=== PATIENT | male | born 1960 | race Two or more races ===

== ENCOUNTER 2017-01-15 05:36 | Observation (INO) | payer MEDICARE, OTHER ==
[2017-01-15 06:26] VITALS: BMI 30.1
[2017-01-15] MEDS ORDERED: VALSARTAN 40 MG TABLET (FP) PO ONE (06:44)
--- NOTE | 2017-01-15 06:44 | PDOC ---
History of Present Illness - General Chief Complaint: Chest Pain Stated Complaint: DIFFICULTY BREATHING Time Seen by Provider: 01/15/17 06:02 History Source: Patient Exam Limitations: No Limitations - History of Present Illness Timing/Duration: 4-6 hours Severity: moderate Associated Symptoms: reports: chest pain, shortness of breath Aspirin Received prior to arrival: Yes: no aspirin today Beta Loretta Contraindications(Core Measure): Yes: Not Prescribed Past History - Travel Traveled outside of the country in the last 30 days: No Close contact w/someone who was outside of country & ill: No - Past Medical History Allergies/Adverse Reactions: Allergies Allergy/AdvReac Type Severity Reaction Status Date / Time morphine Allergy Verified 05/28/15 10:55 Home Medications: Ambulatory Orders Amlodipine Besylate [Norvasc -] 10 mg PO DAILY #30 tablet 05/28/15 Metformin HCl 0 mg PO ASDIR 05/28/15 Tamsulosin HCl [Flomax] 0.4 mg PO DAILY #7 cap.er.24h 05/28/15 Tramadol HCl 50 mg PO TID #14 tablet 05/28/15 Diabetes: Yes HTN: Yes Kidney Stones: Yes - Surgical History Appendectomy: Yes - Suicide/Smoking/Psychosocial Hx Smoking History: Never smoked Hx Alcohol Use: No Drug/Substance Use Hx: No Substance Use Type: None Review of Systems - Review of Systems Able to Perform ROS?: Yes Constitutional: Yes: Malaise. No: Chills, Diaphoresis, Fever, Loss of Appetite HEENTM: No: Eye Pain, Blurred Vision, Recent change in vision, Double Vision Respiratory: Yes: Shortness of Breath. No: Cough, Orthopnea Cardiac (ROS): Yes: Chest Pain, Palpitations ABD/GI: Yes: Nausea. No: Constipated, Diarrhea, Difficulty Swallowing, Poor Appetite, Poor Fluid Intake, Vomiting : No: See HPI, Burning, Dysuria Musculoskeletal: No: Back Pain Integumentary: No: Bruising Neurological: No: See HPI, Headache, Numbness *Physical Exam - Vital Signs Last Vital Signs Temp Pulse Resp BP Pulse Ox 98.1 F 91 H 18 186/100 99 01/15/17 05:57 01/15/17 05:57 01/15/17 05:57 01/15/17 05:57 01/15/17 05:57 - Physical Exam General Appearance: Yes: Nourished, Appropriately Dressed. No: Apparent Distress HEENT: positive: EOMI, OLEG, Normal ENT Inspection, Normal Voice, Symmetrical, Pharynx Normal Neck: positive: Trachea midline Respiratory/Chest: positive: Lungs Clear, Normal Breath Sounds. 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 Pt states that he has "not really" any history of HTN; however, he has HTN in the ER Pt presents with palpitaions and SOB; EKG in the ER is NSR and his HR is 92 bpm. Pt is afebrile. He states that he has had nausea since last night 2am, and that although he did not vomit, he has chest pain and SOB. Pt has no other complaints. He appears comfortable. He has no ill contacts and has no hx of food poisoning. Pt will have basic labs and cardiac enzymes. Pt will get CXR and meds to treaat his HTN; CXR pending. Pt will be signed out to the day ER doc, who will continue management. *DC/Admit/Observation/Transfer Diagnosis at time of Disposition: Palpitations, Diabetes, Shortness of breath - Discharge Dispostion Condition at time of disposition: Guarded
[2017-01-15] MEDS ORDERED: METOPROLOL TARTRATE 50 MG TABLET (FP) PO ONE (06:45)
[2017-01-15] MEDS ORDERED: SODIUM CHLORIDE 0.9% 1000 ML INFUS.BAG IV ONE (06:45)
[2017-01-15] MEDS ORDERED: METOPROLOL TARTRATE 50 MG TABLET (FP) ONE (07:16)
[2017-01-15] MEDS ORDERED: VALSARTAN 80 MG TABLET (UD) ONE (07:17)
[2017-01-15 07:21] LABS: BASOPHIL 0.8 % (0-2.0); EOSINOPHIL 1.6 % (0-4.5); MCHC 34.2 g/dl (32.0-35.9); MEAN CELL VOLUME 84.7 fl (80-96); MEAN PLT VOLUME 8.9 fl (7.5-11.1); NEUTROPHILS 72.3 % (42.8-82.8); PLATELET COUNT 287 K/MM3 (134-434); RDW 13.8 % (11.9-15.9); WHITE BLOOD COUNT 9.9 K/mm3 (4.0-10.0)
[2017-01-15 07:56] LABS: INR 1.01 (0.82-1.09); PROTHROMBIN TIME (PATIENT) 11.4 SEC (9.98-11.88)
[2017-01-15 08:03] LABS: ALBUMIN 3.4 g/dl (3.4-5.0); ANION GAP 6 (8-16); BILIRUBIN,TOTAL 0.4 mg/dL (0.2-1.0); CALCIUM 8.3 mg/dL (8.5-10.1); CO2 25 mmol/L (21-32); CPK 79 IU/L (39-308); GLUCOSE,RANDOM 287 mg/dL (74-106); SGOT/AST 7 U/L (15-37); SGPT/ALT 17 U/L (12-78); TOT PROT 6.5 g/dl (6.4-8.2)
[2017-01-15 08:05] LABS: ALK PHOS 76 U/L (45-117); TROPONIN I < 0.02 ng/ml (0.00-0.05)
[2017-01-15] MEDS ORDERED: NITROGLYCERIN 2% OINTMENT - 1GM PACKET TD ONE ×2 (08:45→09:26)
[2017-01-15] MEDS ORDERED: TAMSULOSIN HCL 0.4 MG CAP.ER.24H (FP) PO SCH (10:45)
--- NOTE | 2017-01-15 10:59 | PDOC ---
*Physical Exam - Vital Signs Last Vital Signs Temp Pulse Resp BP Pulse Ox 98.4 F 75 98 H 153/84 98 01/15/17 09:30 01/15/17 10:45 01/15/17 10:45 01/15/17 10:45 01/15/17 10:45 - Physical Exam Comments: 01/15/17 10:55 56-year-old male with history of diabetes, hypertension endorsed to me by Dr. Crowe. Patient presented to the ER with anterior squeezing chest discomfort and difficulty breathing that lasted approximately 2 hours prior to arrival. In the ER, patient is awake and alert, mildly hypertensive, symptom-free at this time. First set of cardiac enzymes within normal limit. EKG shows no evidence of acute ischemia, chest x-ray reveals no evidence of cardiomegaly/infiltrate or effusion. Patient's heart score is noted to be 3. Will place and telemetry observation for serial cardiac enzymes and cardiology evaluation. ED Treatment Course - LABORATORY CBC & Chemistry Diagram: 01/15/17 07:04 01/15/17 07:04 - ADDITIONAL ORDERS Additional order review: Laboratory Results 01/15/17 01/15/17 01/15/17 07:04 07:04 07:04 PT with INR 11.40 INR 1.01 PTT (Actin FS) 32.9 Sodium Potassium Chloride Carbon Dioxide Anion Gap BUN Creatinine Creat Clearance w eGFR Random Glucose Calcium Total Bilirubin AST ALT Alkaline Phosphatase Creatine Kinase Troponin I Total Protein Albumin Total Amylase 103 01/15/17 07:04 PT with INR INR PTT (Actin FS) Sodium 138 Potassium 4.2 Chloride 107 Carbon Dioxide 25 Anion Gap 6 L BUN 20 H Creatinine 1.0 Creat Clearance w eGFR > 60 Random Glucose 287 H Calcium 8.3 L Total Bilirubin 0.4 D AST 7 L D ALT 17 D Alkaline Phosphatase 76 Creatine Kinase 79 Troponin I < 0.02 Total Protein 6.5 Albumin 3.4 Total Amylase 01/15/17 07:04 RBC 4.91 MCV 84.7 MCHC 34.2 RDW 13.8 MPV 8.9 Neutrophils % 72.3 Lymphocytes % 19.7 D Monocytes % 5.6 Eosinophils % 1.6 Basophils % 0.8 - Medications Given in the ED: ED Medications Discontinued Medications Generic Name Dose Route Start Last Admin Trade Name Freq PRN Reason Stop Dose Admin Metoprolol Tartrate 50 mg 01/15/17 06:45 01/15/17 07:26 Lopressor - PO 01/15/17 06:46 50 mg ONCE ONE Administration Nitroglycerin 1 inch 01/15/17 08:45 01/15/17 09:25 Nitro-Bid 2% Paste - TD 01/15/17 08:46 1 inch ONCE ONE Administration Sodium Chloride 500 ml 01/15/17 06:45 01/15/17 07:26 Normal Saline - IV 01/15/17 06:46 500 ml ONCE ONE Administration Valsartan 40 mg 01/15/17 06:44 01/15/17 07:26 Diovan - PO 01/15/17 06:45 40 mg ONCE ONE Administration *DC/Admit/Observation/Transfer Diagnosis at time of Disposition: Palpitations, Shortness of breath, Hyperglycemia - Discharge Dispostion Condition at time of disposition: Guarded Admit: Yes
[2017-01-15] MEDS ORDERED: INSULIN (NOVOLOG) ASPART 100 UNITS/ML 10ML VIAL SQ SCH (11:00)
[2017-01-15] MEDS ORDERED: INSULIN REGULAR HUMAN 100 UNITS/ML *VIAL SQ ONE (12:04)
--- NOTE | 2017-01-15 12:21 | HP ---
CHIEF COMPLAINT: Chest pain and SOB PCP: None HISTORY OF PRESENT ILLNESS: 56 year-old male with a PMH significant for HTN, NIDDM, and kidney stones, who has no doctor and gets his medications from "a friend who works at a pharmacy." Last night woke from sleep with mid-chest pressure and SOB. The SOB was relieved with sitting up but the chest persisted for an hour and gradually resolved. Patient came to the ED where is BP was 186/100. Patient denies previous similar episodes. He denies palpitations, lightheadedness, syncope. He denies GONZALEZ and no change in his exercise tolerance. He denies lower extremity edema. ER course was notable for: (1) BP 186/100 (2) Troponin neg x 1 (3) ECG: sinus rhythm with nonspecific T wave abnormalities Recent Travel: No PAST MEDICAL HISTORY: Hypertension Diabetes Renal calculi PAST SURGICAL HISTORY: Appendectomy Social History: Smoking: never Alcohol: no Drugs: mp Family History: Allergies morphine Allergy (Verified 05/28/15 10:55) HOME MEDICATIONS (no pharmacy, no prescribing provider per patient) Home Medications Medication Instructions Recorded Amlodipine Besylate [Norvasc -] 10 mg PO DAILY #30 tablet 05/28/15 Metformin HCl 0 mg PO ASDIR 05/28/15 Tamsulosin HCl [Flomax] 0.4 mg PO DAILY #7 cap.er.24h 05/28/15 REVIEW OF SYSTEMS CONSTITUTIONAL: Absent: fever, chills, diaphoresis, generalized weakness, malaise, loss of appetite, weight change HEENT: Absent: rhinorrhea, nasal congestion, throat pain, throat swelling, difficulty swallowing, mouth swelling, ear pain, eye pain, visual changes CARDIOVASCULAR: Present: chest pain with associated SOB Absent: syncope, palpitations, irregular heart rate, lightheadedness, peripheral edema RESPIRATORY: Absent: cough, shortness of breath, dyspnea with exertion, orthopnea, wheezing, stridor, hemoptysis GASTROINTESTINAL: Absent: abdominal pain, abdominal distension, nausea, vomiting, diarrhea, constipation, melena, hematochezia GENITOURINARY: Absent: dysuria, frequency, urgency, hesitancy, hematuria, flank pain, genital pain MUSCULOSKELETAL: Absent: myalgia, arthralgia, joint swelling, back pain, neck pain SKIN: Absent: rash, itching, pallor HEMATOLOGIC/IMMUNOLOGIC: Absent: easy bleeding, easy bruising, lymphadenopathy, frequent infections ENDOCRINE: Absent: unexplained weight gain, unexplained weight loss, heat intolerance, cold intolerance NEUROLOGIC: Absent: headache, focal weakness or paresthesias, dizziness, unsteady gait, seizure, mental status changes, bladder or bowel incontinence PSYCHIATRIC: Absent: anxiety, depression, suicidal or homicidal ideation, hallucinations. PHYSICAL EXAMINATION GENERAL: Awake, alert, and fully oriented, in no acute distress. HEAD: Normal with no signs of trauma. EYES: Pupils equal, round and reactive to light, extraocular movements intact, sclera anicteric, conjunctiva clear. No lid lag. EARS, NOSE, THROAT: Ears normal, nares patent, oropharynx clear without exudates. Moist mucous membranes. NECK: Normal range of motion, supple without lymphadenopathy, JVD, or masses. LUNGS: Breath sounds equal, clear to auscultation bilaterally. No wheezes, and no crackles. No accessory muscle use. HEART: Regular rate and rhythm, normal S1 and S2 without murmur, rub or gallop. ABDOMEN: Soft, nontender, not distended, normoactive bowel sounds, no guarding, no rebound, no masses. No hepatomegaly or splenomegaly. MUSCULOSKELETAL: Normal range of motion at all joints. No bony deformities or tenderness. No CVA tenderness. UPPER EXTREMITIES: 2+ pulses, warm, well-perfused. No cyanosis. No clubbing. No peripheral edema. LOWER EXTREMITIES: 2+ pulses, warm, well-perfused. No calf tenderness. No peripheral edema. NEUROLOGICAL: Cranial nerves II-XII intact. Normal speech. Gait not observed. Laboratory Results - last 24 hr 01/15/17 01/15/17 01/15/17 07:04 07:04 07:04 WBC 9.9 RBC 4.91 Hgb 14.3 Hct 41.6 MCV 84.7 MCH 29.0 MCHC 34.2 RDW 13.8 Plt Count 287 MPV 8.9 Neutrophils % 72.3 Lymphocytes % 19.7 D Monocytes % 5.6 Eosinophils % 1.6 Basophils % 0.8 PT with INR INR PTT (Actin FS) 32.9 Sodium 138 Potassium 4.2 Chloride 107 Carbon Dioxide 25 Anion Gap 6 L BUN 20 H Creatinine 1.0 Creat Clearance w eGFR > 60 POC Glucometer Random Glucose 287 H Calcium 8.3 L Total Bilirubin 0.4 D AST 7 L D ALT 17 D Alkaline Phosphatase 76 Creatine Kinase 79 Troponin I < 0.02 Total Protein 6.5 Albumin 3.4 Total Amylase 01/15/17 01/15/17 01/15/17 07:04 07:04 11:27 WBC RBC Hgb Hct MCV MCH MCHC RDW Plt Count MPV Neutrophils % Lymphocytes % Monocytes % Eosinophils % Basophils % PT with INR 11.40 INR 1.01 PTT (Actin FS) Sodium Potassium Chloride Carbon Dioxide Anion Gap BUN Creatinine Creat Clearance w eGFR POC Glucometer [phone] Random Glucose Calcium Total Bilirubin AST ALT Alkaline Phosphatase Creatine Kinase Troponin I Total Protein Albumin Total Amylase 103 01/15/17 13:45 WBC RBC Hgb Hct MCV MCH MCHC RDW Plt Count MPV Neutrophils % Lymphocytes % Monocytes % Eosinophils % Basophils % PT with INR INR PTT (Actin FS) Sodium Potassium Chloride Carbon Dioxide Anion Gap BUN Creatinine Creat Clearance w eGFR POC Glucometer Random Glucose Calcium Total Bilirubin AST ALT Alkaline Phosphatase Creatine Kinase 80 Troponin I < 0.02 Total Protein Albumin Total Amylase ASSESSMENT/PLAN: 56 year-old male with a PMH significant for HTN, NIDDM, and kidney stones. Admitted for hypertensive emergency, chest pain, and SOB. Hypertensive emergency Chest pain SOB --BP 186/100 on admission with associated chest pain and SOB --troponins neg x 2, third pending --CXR unremarkable --ECG without acute ischemic changes --echo pending --stop amlodipine and start lisinopril given h/o DM; titrate lisinopril and/ or add back amlodipine if needed --start ASA, atorvastatin --seen and evaluated by cardiology, plan for nuclear exercise test NIDDM --Novolog sliding scale coverage --f/u HgbA1C F/E/N Fluids: PO intake adequate Electrolytes: replete as indicated Nutrition: diabetic, low sodium DVT prophylaxis: subq heparin, oob, ambulation Dispo: continues to require inpatient care. Full Code. Visit type - Emergency Visit Emergency Visit: Yes ED Registration Date: 01/15/17 Care time: The patient presented to the Emergency Department on the above date and was hospitalized for further evaluation of their emergent condition. - New Patient This patient is new to me today: Yes Date on this admission: 01/15/17 - Critical Care Critical Care patient: No
[2017-01-15] MEDS ORDERED: FLU VACCINE QUAD 60 MCG/0.5 ML (MDV 17-18) IM ONE (14:00)
--- NOTE | 2017-01-15 14:22 | CON.CARD ---
Consult Consult Specialty:: Cardiology Referred by:: Nick Meade Reason for Consultation:: Chest pain - History of Present Illness Chief Complaint: Chest pain History of Present Illness: 56 year old male with a pmhx of dm for 12 years who presents with chest pain. Patient was home in bed when awoke and noted mild anterior nonradiating chest tightness along with sob. Symptoms persisted for an hour so came to ER. BP noted to be 186/100 in ER. Symptoms gradually resolved and patient currently asymptomatic. As per patient, exercise tolerance is good with no chest pain or dyspnea. No pnd, orthopnea, or edema. No palpitations. Does not see doctors and buys his metformin but does not monitor glucose. - History Source History Provided By: Patient, Medical Record Limitations to Obtaining History: No Limitations - Past Medical History Cardio/Vascular: Yes: HTN Endocrine: Yes: Diabetes Mellitus - Past Surgical History Past Surgical History: Yes: Appendectomy Additional Surgical History: kidney stones - Alcohol/Substance Use Hx Alcohol Use: No History of Substance Use: reports: None - Smoking History Smoking history: Never smoked Have you smoked in the past 12 months: No Home Medications - Allergies Allergies/Adverse Reactions: Allergies Allergy/AdvReac Type Severity Reaction Status Date / Time morphine Allergy Verified 05/28/15 10:55 - Home Medications Home Medications: Ambulatory Orders Metformin HCl 1,000 mg PO BID 05/28/15 Vital Signs: Vital Signs Temperature 98.4 F 01/15/17 12:50 Pulse Rate 77 01/15/17 12:50 Respiratory Rate 18 01/15/17 12:50 Blood Pressure 133/68 01/15/17 12:50 O2 Sat by Pulse Oximetry (%) 98 01/15/17 12:50 Constitutional: Yes: No Distress Neck: Yes: Supple, Trachea Midline Respiratory: Yes: CTA Bilaterally Gastrointestinal: Yes: Normal Bowel Sounds, Soft Cardiovascular: Yes: Regular Rate and Rhythm JVD: No Carotid Bruit: No PMI: Non-Displaced Heart Sounds: Yes: S1, S2 Murmur: No: Systolic Murmur Edema: No - Other Data Labs, Other Data: INR, PTT INR 1.01 (0.82-1.09) 01/15/17 07:04 Imaging - Results EKG: Image Reviewed Assessment/Plan 56 year old male with a pmhx of kidney stones and dm for 12 years who presents with chest pain. Patient was home in bed when awoke and noted mild anterior nonradiating chest tightness along with sob. EKG: sinus rhythm with nonspecific T wave abnormalities. 1) Chest pain/dyspnea May have been due to elevated blood pressure but given long standing dm would r/ o ACS first set CE's negative. No acute ischemic ecg changes. Monitor on tele If CE's remain negative than plan for nuclear exercise stress test. Echocardiogram to evaluate LV size/function and valve anatomy 2) HTN -Given history of DM would benefit from larissa-i/arb rather than ccb as long as no contraindication. Would start lisinopril 20mg daily instead of amlodipine and increase as needed or add amlodipine if needed. 3) DM Check A1C Check lipids Hold metformin in case needs further contrast testing Aspirin 81mg daily Start atorvastatin 10mg daily
[2017-01-15 14:40] LABS: CPK 80 IU/L (39-308); TROPONIN I < 0.02 ng/ml (0.00-0.05)
[2017-01-15] MEDS: HEPARIN NA (PORCINE) 5,000 UNITS/ML 1ML VIAL SQ SCH ×2 (15:30→21:16)
[2017-01-15] MEDS: INSULIN SLIDING SCALE (NOVOLOG) 1 VIAL SQ SCH ×2 (16:14→21:21)
[2017-01-15] MEDS: ATORVASTATIN CA 10 MG TABLET (FP) PO SCH (21:17)
[2017-01-15] MEDS: ASPIRIN COATED 81 MG TABLET.EC PO SCH (21:17)
[2017-01-15] MEDS ORDERED: ATORVASTATIN CA 40 MG TABLET (FP) PO SCH (22:00)
[2017-01-16] MEDS: HEPARIN NA (PORCINE) 5,000 UNITS/ML 1ML VIAL SQ SCH ×3 (06:13→21:32)
[2017-01-16] MEDS: INSULIN SLIDING SCALE (NOVOLOG) 1 VIAL SQ SCH ×4 (06:13→21:41)
[2017-01-16 07:44] LABS: BASOPHIL 0.3 % (0-2.0); EOSINOPHIL 2.8 % (0-4.5); MCH 28.1 pg (25.7-33.7); MCHC 33.5 g/dl (32.0-35.9); MEAN CELL VOLUME 83.8 fl (80-96); MEAN PLT VOLUME 9.3 fl (7.5-11.1); NEUTROPHILS 63.3 % (42.8-82.8); PLATELET COUNT 296 K/MM3 (134-434); RDW 13.9 % (11.9-15.9); WHITE BLOOD COUNT 8.8 K/mm3 (4.0-10.0)
[2017-01-16 08:09] LABS: INR 1.05 (0.82-1.09); PROTHROMBIN TIME (PATIENT) 11.9 SEC (9.98-11.88)
[2017-01-16 08:12] LABS: ACTIVATED PTT 31.2 SECONDS (26.9-34.4)
[2017-01-16 08:24] LABS: ANION GAP 10 (8-16); CALCIUM 8.8 mg/dL (8.5-10.1); CO2 24 mmol/L (21-32); GLUCOSE,RANDOM 230 mg/dL (74-106); MAGNESIUM 1.7 mg/dL (1.8-2.4); PHOSPHOROUS 3.8 mg/dL (2.5-4.9)
[2017-01-16 09:14] LABS: CHOLESTEROL 207 mg/dL (50-200)
[2017-01-16] MEDS: TAMSULOSIN HCL 0.4 MG CAP.ER.24H (FP) PO SCH (09:25)
[2017-01-16] MEDS: ASPIRIN COATED 81 MG TABLET.EC PO SCH (09:26)
[2017-01-16] MEDS ORDERED: LISINOPRIL 10 MG TABLET (FP) PO SCH (10:00)
[2017-01-16] MEDS ORDERED: amLODIPine BESYLATE 10 MG TABLET (FP) PO SCH (10:00)
--- NOTE | 2017-01-16 12:15 | PN ---
Progress Note, Physician Chief Complaint: No complaints sinus with occasional pvc on tele History of Present Illness: 56 year old male with a pmhx of dm for 12 years who presents with chest pain. Patient was home in bed when awoke and noted mild anterior nonradiating chest tightness along with sob. Symptoms persisted for an hour so came to ER. BP noted to be 186/100 in ER. Symptoms gradually resolved and patient currently asymptomatic. As per patient, exercise tolerance is good with no chest pain or dyspnea. No pnd, orthopnea, or edema. No palpitations. Does not see doctors and buys his metformin but does not monitor glucose. - Current Medication List Current Medications: Active Medications Aspirin (Ecotrin -) 81 mg PO DAILY [facility] Last Admin: 01/16/17 09:26 Dose: 81 mg Atorvastatin Calcium (Lipitor -) 10 mg PO HS [facility] Last Admin: 01/15/17 21:17 Dose: 10 mg Heparin Sodium (Porcine) (Heparin -) 5,000 unit SQ TID [facility] Last Admin: 01/16/17 06:13 Dose: 5,000 unit Insulin Aspart (Novolog Vial Sliding Scale -) 1 vial SQ ACHS [facility] PRN Reason: Protocol Last Admin: 01/16/17 06:13 Dose: 4 units Lisinopril (Prinivil) 20 mg PO DAILY [facility] Last Admin: 01/16/17 09:26 Dose: 20 mg Tamsulosin HCl (Flomax -) 0.4 mg PO DAILY@0830 [facility] Last Admin: 01/16/17 09:25 Dose: 0.4 mg - Objective Vital Signs: Vital Signs Temperature 98.0 F 01/16/17 10:00 Pulse Rate 81 01/16/17 10:00 Respiratory Rate 20 01/16/17 10:00 Blood Pressure 131/96 01/16/17 10:00 O2 Sat by Pulse Oximetry (%) 99 01/16/17 10:00 Constitutional: Yes: Well Nourished, No Distress Neck: Yes: Supple, Trachea Midline Cardiovascular: Yes: Regular Rate and Rhythm Respiratory: Yes: CTA Bilaterally Gastrointestinal: Yes: Normal Bowel Sounds, Soft Edema: No Labs: CBC, BMP 01/16/17 05:10 01/16/17 05:10 INR, PTT INR 1.05 (0.82-1.09) 01/16/17 05:10 Assessment/Plan 56 year old male with a pmhx of kidney stones and dm for 12 years who presents with chest pain. Patient was home in bed when awoke and noted mild anterior nonradiating chest tightness along with sob. EKG: sinus rhythm with nonspecific T wave abnormalities. 1) Chest pain/dyspnea May have been due to elevated blood pressure but given long standing dm would r/ o ACS CE's negative. No acute ischemic ecg changes. Monitor on tele Plan for nuclear exercise stress test. Echocardiogram to evaluate LV size/function and valve anatomy 2) HTN Would increase lisinopril to 40mg daily 3) DM Hold metformin in case needs further contrast testing Aspirin 81mg daily Start atorvastatin 10mg daily
[2017-01-16] MEDS ORDERED: LISINOPRIL 20 MG TABLET (FP) PO ONE (13:00)
--- NOTE | 2017-01-16 13:16 | PN ---
Progress Note (short form) - Note Progress Note: Subjective: no fever or chills. no CP but he feels some pressure x 2 days ,, got better Objective: Vital Signs: Last Vital Signs Temp Pulse Resp BP Pulse Ox 98.0 F 81 20 131/96 99 01/16/17 10:00 01/16/17 10:00 01/16/17 10:00 01/16/17 10:00 01/16/17 10:00 Laboratory Results - last 24 hr 01/15/17 01/15/17 01/15/17 13:45 19:20 21:15 WBC RBC Hgb Hct MCV MCH MCHC RDW Plt Count MPV Neutrophils % Lymphocytes % Monocytes % Eosinophils % Basophils % PT with INR INR PTT (Actin FS) Sodium Potassium Chloride Carbon Dioxide Anion Gap BUN Creatinine POC Glucometer 341 Random Glucose Hemoglobin A1c % Calcium Phosphorus Magnesium Creatine Kinase 80 Troponin I < 0.02 < 0.02 Triglycerides Cholesterol Total LDL Cholesterol HDL Cholesterol 01/16/17 01/16/17 01/16/17 05:10 05:10 05:10 WBC 8.8 RBC 5.10 Hgb 14.3 Hct 42.8 MCV 83.8 MCH 28.1 MCHC 33.5 RDW 13.9 Plt Count 296 MPV 9.3 Neutrophils % 63.3 Lymphocytes % 26.9 D Monocytes % 6.7 Eosinophils % 2.8 Basophils % 0.3 PT with INR 11.90 H INR 1.05 PTT (Actin FS) 31.2 Sodium 138 Potassium 4.2 Chloride 104 Carbon Dioxide 24 Anion Gap 10 BUN 16 Creatinine 1.0 POC Glucometer Random Glucose 230 H Hemoglobin A1c % Calcium 8.8 Phosphorus 3.8 Magnesium 1.7 L Creatine Kinase Troponin I Triglycerides 174 H Cholesterol 207 H Total LDL Cholesterol 136 H HDL Cholesterol 45 01/16/17 01/16/17 01/16/17 05:10 05:10 05:35 WBC RBC Hgb Hct MCV MCH MCHC RDW Plt Count MPV Neutrophils % Lymphocytes % Monocytes % Eosinophils % Basophils % PT with INR INR PTT (Actin FS) Sodium Potassium Chloride Carbon Dioxide Anion Gap BUN Creatinine POC Glucometer 214 Random Glucose Hemoglobin A1c % 10.0 H Calcium Phosphorus Magnesium Creatine Kinase Troponin I Triglycerides Cancelled Cholesterol Cancelled Total LDL Cholesterol Cancelled HDL Cholesterol Cancelled 01/16/17 11:38 WBC RBC Hgb Hct MCV MCH MCHC RDW Plt Count MPV Neutrophils % Lymphocytes % Monocytes % Eosinophils % Basophils % PT with INR INR PTT (Actin FS) Sodium Potassium Chloride Carbon Dioxide Anion Gap BUN Creatinine POC Glucometer 242 Random Glucose Hemoglobin A1c % Calcium Phosphorus Magnesium Creatine Kinase Troponin I Triglycerides Cholesterol Total LDL Cholesterol HDL Cholesterol Physical Exam: NAD CV: RRR, No JVD Lungs: CTAB EXt: no edema Assessment/Plan: 56 y/o man with h/o DM who presented with CP for 2 days . 1- Atypical CP: given duration of CP with NL trop x3. it is unlikely to be ACS 2 EKGs reviewed, sinus rhythm with L axis deviation - cont tele : no events - cont BP control and asa - stress test and echo tomorrow - cont lipitor , LDL above goal 2- HTN urgency: NO evidence of end organ damage. - increase lisinopril - monitor renal function and electrolytes 3- DM : cont SSI . Hold metformin 4- hypomagnesemia : replete DVT PX Visit type - Emergency Visit Emergency Visit: Yes ED Registration Date: 01/15/17 Care time: The patient presented to the Emergency Department on the above date and was hospitalized for further evaluation of their emergent condition. - New Patient This patient is new to me today: Yes Date on this admission: 01/16/17 - Critical Care Critical Care patient: No
[2017-01-16] MEDS ORDERED: MAGNESIUM SULF 50% (8.12 MEQ/2 ML-1 GM VIAL) IVPB ONE (13:30)
[2017-01-16] MEDS ORDERED: amLODIPine BESYLATE 5 MG TABLET (FP) PO ONE (17:03)
[2017-01-16] MEDS: ATORVASTATIN CA 10 MG TABLET (FP) PO SCH (21:32)
[2017-01-17] MEDS: HEPARIN NA (PORCINE) 5,000 UNITS/ML 1ML VIAL SQ SCH ×2 (06:18→16:16)
[2017-01-17] MEDS: INSULIN SLIDING SCALE (NOVOLOG) 1 VIAL SQ SCH ×3 (06:18→16:35)
[2017-01-17 07:57] LABS: ANION GAP 8 (8-16); CALCIUM 8.6 mg/dL (8.5-10.1); CO2 27 mmol/L (21-32); GLUCOSE,RANDOM 241 mg/dL (74-106); MAGNESIUM 1.9 mg/dL (1.8-2.4)
[2017-01-17] MEDS ORDERED: LISINOPRIL 20 MG TABLET (FP) PO SCH (10:00)
--- NOTE | 2017-01-17 13:22 | PN ---
Physical Exam: SUBJECTIVE: Patient seen and examined. He denies chest pain, sob, GONZALEZ, blurry vision. tele: - NSR OBJECTIVE: Vital Signs Period Temp Pulse Resp BP Sys/Lara Pulse Ox Last 24 Hr 97.9 F-98.8 F 75-94 18-20 152-179/82-99 98-100 PE Neuro: alert, awake, cn 2-12intact Pulm: CTAB CV: s1 s2 rrr no mrg Abd: s nt nd + bs Ext: warm, no le edema Laboratory Results - last 24 hr 01/16/17 01/16/17 01/17/17 16:43 21:28 05:18 Sodium 138 Potassium 4.5 Chloride 103 Carbon Dioxide 27 Anion Gap 8 BUN 14 Creatinine 1.0 POC Glucometer 236 234 Random Glucose 241 H Calcium 8.6 Magnesium 1.9 Active Medications Generic Name Dose Route Start Last Admin Trade Name Freq PRN Reason Stop Dose Admin Aspirin 81 mg 01/15/17 20:30 01/16/17 09:26 Ecotrin - PO 81 mg DAILY ROSELINE Administration Atorvastatin Calcium 10 mg 01/15/17 22:00 01/16/17 21:32 Lipitor - PO 10 mg HS ROSELINE Administration Heparin Sodium (Porcine) 5,000 unit 01/15/17 14:00 01/17/17 06:18 Heparin - SQ 5,000 unit TID ROSELINE Administration Insulin Aspart 1 vial 01/15/17 11:40 01/17/17 06:18 Novolog Vial Sliding Scale - SQ 4 units ACHS ROSELINE Administration Protocol Lisinopril 40 mg 01/17/17 10:00 Prinivil PO DAILY ROSELINE Tamsulosin HCl 0.4 mg 01/15/17 11:42 01/16/17 09:25 Flomax - PO 0.4 mg DAILY@0830 ROSELINE Administration Assessment: 56 year old male with pmhx DM II admitted with CP x2 days. Plan: 1, Atypical CP - Most likely, due to elevated BP, serial trops negative - ECHO, stress MIBI today d/t DM - ASA daily 2. HTN urgency - Resolved - BP stable now - Increased lisinopril 40mg daily 3. DM II - Hold metformin 4. HLD - Started atorvastatin 10mg daily 5. Hypomagnesemia - Resolved 6. BPH - Flomax daily 7. DVT - Heparin sq Dispo - Pending echo stress results Visit type - Emergency Visit Emergency Visit: Yes ED Registration Date: 01/15/17 Care time: The patient presented to the Emergency Department on the above date and was hospitalized for further evaluation of their emergent condition. - New Patient This patient is new to me today: Yes Date on this admission: 01/17/17 - Critical Care Critical Care patient: No
--- NOTE | 2017-01-17 15:22 | PN ---
Progress Note, Physician Chief Complaint: Patient appears comfortable. He has no recurrent chest pain. SOB or palpitation. S/p nuclear stress test. He did not have chest pain during stress. The report is pending. History of Present Illness: 56 year old male with a PMHx of DM for 12 years who presents with chest pain. He has elevated BP in ED. DC was ruled out. Patient had stress test this afternoon. He tolerate stress test well. EKG: sinus rhythm with nonspecific T wave abnormalities. - Current Medication List Current Medications: Active Medications Aspirin (Ecotrin -) 81 mg PO DAILY [facility] Last Admin: 01/16/17 09:26 Dose: 81 mg Atorvastatin Calcium (Lipitor -) 10 mg PO HS [facility] Last Admin: 01/16/17 21:32 Dose: 10 mg Heparin Sodium (Porcine) (Heparin -) 5,000 unit SQ TID [facility] Last Admin: 01/17/17 06:18 Dose: 5,000 unit Insulin Aspart (Novolog Vial Sliding Scale -) 1 vial SQ ACHS [facility] PRN Reason: Protocol Last Admin: 01/17/17 06:18 Dose: 4 units Lisinopril (Prinivil) 40 mg PO DAILY [facility] Tamsulosin HCl (Flomax -) 0.4 mg PO DAILY@0830 [facility] Last Admin: 01/16/17 09:25 Dose: 0.4 mg - Objective Vital Signs: Vital Signs Temperature 98 F 01/17/17 10:00 Pulse Rate 94 H 01/17/17 10:00 Respiratory Rate 18 01/17/17 10:00 Blood Pressure 158/90 01/17/17 10:00 O2 Sat by Pulse Oximetry (%) 98 01/17/17 10:00 Constitutional: Yes: Well Nourished, No Distress, Calm Eyes: Yes: WNL, Conjunctiva Clear, EOM Intact HENT: Yes: WNL, Atraumatic, Normocephalic Neck: Yes: WNL, Supple, Trachea Midline Cardiovascular: Yes: WNL, Regular Rate and Rhythm Respiratory: Yes: WNL, Regular, CTA Bilaterally Gastrointestinal: Yes: WNL, Normal Bowel Sounds, Soft ...Rectal Exam: Yes: Deferred Musculoskeletal: Yes: WNL Extremities: Yes: WNL Edema: No Peripheral Pulses WNL: Yes Labs: CBC, BMP 01/16/17 05:10 01/17/17 05:18 INR, PTT INR 1.05 (0.82-1.09) 01/16/17 05:10 Assessment/Plan 56 year old male with a PMHx of DM for 12 years who presents with chest pain. He has elevated BP in ED. DC was ruled out. Patient had stress test this afternoon. He tolerate stress test well. EKG: sinus rhythm with nonspecific T wave abnormalities. 1) Chest pain/dyspnea. He has risk factors of CAD. Nuclear exercise stress test is done report pending. Echocardiogram pending. 2) HTN: BP control improved, but still elevated. Continue lisinopril to 40mg daily Add Metoprolol succinate 50 mg daily. 3) DM Hold metformin in case needs further contrast testing Aspirin 81mg daily Continue atorvastatin 10mg daily
[2017-01-17] MEDS: TAMSULOSIN HCL 0.4 MG CAP.ER.24H (FP) PO SCH (16:14)
[2017-01-17] MEDS: ASPIRIN COATED 81 MG TABLET.EC PO SCH (16:15)
--- NOTE | 2017-01-17 17:42 | DS ---
Physical Exam: SUBJECTIVE: Patient seen and examined. No issues at discharge, see progress note OBJECTIVE: Vital Signs Period Temp Pulse Resp BP Sys/Lara Pulse Ox Last 24 Hr 97.4 F-98.8 F 77-105 18-20 141-179/84-99 98-100 PE Neuro: alert, awake, cn 2-12intact Pulm: CTAB CV: s1 s2 rrr no mrg Abd: s nt nd + bs Ext: warm, no le edema Laboratory Results - last 24 hr 01/16/17 01/17/17 01/17/17 21:28 05:18 05:38 Sodium 138 Potassium 4.5 Chloride 103 Carbon Dioxide 27 Anion Gap 8 BUN 14 Creatinine 1.0 POC Glucometer 234 217 Random Glucose 241 H Calcium 8.6 Magnesium 1.9 01/17/17 16:33 Sodium Potassium Chloride Carbon Dioxide Anion Gap BUN Creatinine POC Glucometer 336 Random Glucose Calcium Magnesium HOSPITAL COURSE: Date of Admission:01/15/17 Date of Discharge: 01/17/17 Minutes to complete discharge: 37 Discharge Summary Reason For Visit: SHORTNESS OF BREATH Current Active Problems Hyperglycemia (Acute) Palpitations (Acute) Shortness of breath (Acute) Hospital Course: Initial Hospital Course: Briefly, this 56 year-old male with a PMH significant for HTN, NIDDM, and kidney stones, who has no doctor and gets his medications from "a friend who works at a pharmacy" awoke from sleep with mid-chest pressure and SOB. The SOB was relieved with sitting up but the chest persisted for an hour and gradually resolved. Patient came to the ED where is BP was 186/100. Patient denies previous similar episodes. He denies palpitations, lightheadedness, syncope. He denies GONZALEZ and no change in his exercise tolerance. He denies lower extremity edema. Subsequent Hospital Course/Progress note/DC summary: Assessment: 56 year old male with pmhx DM II admitted with CP x2 days. Plan: 1, Atypical CP - Most likely, due to elevated BP, serial trops negative - ECHO lvsf normal, stress MIBI negative - Started ASA daily 2. HTN urgency - Resolved - BP stable now - Started lisinopril 40mg daily - Started toprol xl 50mg daily 3. DM II - Resume home metformin 4. HLD - Started atorvastatin 10mg daily 5. Hypomagnesemia - Resolved 6. BPH - Flomax daily Dispo - Home with cardiology follow up, referral enclosed - Pt aware and agrees to above plan Condition: Stable - Instructions Diet, Activity, Other Instructions: Please return to the ED for any new, persistent, or worsening symptoms. Follow up with your PCP in 1 week Take new home medications as directed and regularly Referrals: Will Cho MD [Staff Physician] - Disposition: HOME - Home Medications Comprehensive Discharge Medication List: Ambulatory Orders Metformin HCl 1,000 mg PO BID 05/28/15 Aspirin [ASA -] 81 mg PO DAILY #30 tab.chew 01/17/17 Atorvastatin Ca [Lipitor] 40 mg PO HS #30 tablet 01/17/17 Lisinopril [Prinivil -] 40 mg PO DAILY #30 tablet 01/17/17 Metoprolol Succinate [Toprol XL -] 50 mg PO DAILY #30 tablet 01/17/17 This patient is new to me today: Yes Date on this admission: 01/17/17 Emergency Visit: Yes ED Registration Date: 01/15/17 Care time: The patient presented to the Emergency Department on the above date and was hospitalized for further evaluation of their emergent condition. Critical Care patient: No - Discharge Referral Referred to [facility] No
[2017-01-17 19:12] VITALS: BP 141/80; PULSE 91; TEMP 98.8
--- NOTE | 2017-01-19 12:49 | EKG ---
Test Reason : Blood Pressure : / mmHG Vent. Rate : 092 BPM Atrial Rate : 092 BPM P-R Int : 180 ms QRS Dur : 098 ms QT Int : 350 ms P-R-T Axes : 073 003 078 degrees QTc Int : 432 ms NORMAL SINUS RHYTHM NONSPECIFIC T WAVE ABNORMALITY ABNORMAL ECG WHEN COMPARED WITH ECG OF 27-AUG-2013 03:11, NO SIGNIFICANT CHANGE WAS FOUND Confirmed by LINA OROPEZA MD ([id number]) on 01/19/2017 12:49:07 PM Referred By: Confirmed By:LINA OROPEZA MD
--- NOTE | 2017-01-19 14:31 | EKG ---
Test Reason : Blood Pressure : / mmHG Vent. Rate : 077 BPM Atrial Rate : 077 BPM P-R Int : 162 ms QRS Dur : 102 ms QT Int : 378 ms P-R-T Axes : 070 -12 067 degrees QTc Int : 427 ms SINUS RHYTHM WITH OCCASIONAL PREMATURE VENTRICULAR COMPLEXES NONSPECIFIC T WAVE ABNORMALITY ABNORMAL ECG WHEN COMPARED WITH ECG OF 15-JAN-2017 06:06, PREMATURE VENTRICULAR COMPLEXES ARE NOW PRESENT Confirmed by JOHNNA LARRY, LINA ([id number]) on 01/19/2017 2:31:09 PM Referred By: Roberta BARRON Confirmed By:LINA OROPEZA MD
== END 2017-01-17 19:07 | disposition home or self-care (01) ==
LOC: JER 05:36 → JERBED 11:18 → J4W 12:45
PROVIDERS: ADMIT Internal Medicine; ATTEND Nurse Practitioner Acute Care
PROC: 3E033GC Introduction of Other Therapeutic Substance into Peripheral Vein, Percutaneous Approach (ICD-10-PCS; principal; 2017-01-15)
PROC: 3E0337Z Introduction of Electrolytic and Water Balance Substance into Peripheral Vein, Percutaneous Approach (ICD-10-PCS; 2017-01-15)
PROC: 3E013VG Introduction of Insulin into Subcutaneous Tissue, Percutaneous Approach (ICD-10-PCS; 2017-01-15)
PROC: 3E013GC Introduction of Other Therapeutic Substance into Subcutaneous Tissue, Percutaneous Approach (ICD-10-PCS; 2017-01-15)
DX: R07.89 Other chest pain (principal); R06.02 Shortness of breath; R00.2 Palpitations; E11.65 Type 2 diabetes mellitus with hyperglycemia; I16.0 Hypertensive urgency; E83.42 Hypomagnesemia; Z79.84 Long term (current) use of oral hypoglycemic drugs; Z87.442 Personal history of urinary calculi; Z88.6 Allergy status to analgesic agent; Z90.89 Acquired absence of other organs; N40.0 Benign prostatic hyperplasia without lower urinary tract symptoms
CPT/HCPCS: 36415; 71020-TC; 78452-TC; 80048; 80053; 80061; 82150; 82550; 83036; 83721; 83735; 84100; 84484; 85025; 85610; 85730; 90688; 93005; 93010; 93017; 93306-TC; 96372; 96374; 99285-25; A9502; G0378; J1644

== ENCOUNTER 2017-09-21 09:53 | Observation (INO) | payer OTHER ==
--- NOTE | 2017-09-21 10:13 | PDOC ---
*Physical Exam - Vital Signs Last Vital Signs Temp Pulse Resp BP Pulse Ox 97.8 F 90 16 155/90 100 09/21/17 10:00 09/21/17 10:00 09/21/17 10:00 09/21/17 10:00 09/21/17 10:00 ED Treatment Course - LABORATORY CBC & Chemistry Diagram: 09/21/17 11:20 09/21/17 11:20 Medical Decision Making - Medical Decision Making 09/21/17 12:07 56 yo M presents to the ER with a complaint of Pt seen by Midlevel Provider under my direct supervision Pt interviewed and examined Ancillary studies reviewed I agree with plan as outlined by Midlevel Provider Twelve-lead EKG was performed and reviewed by me. There is normal sinus rhythm with a normal rate of 75 bpm. The axis is normal. The intervals are normal. There are no ST or T wave abnormalities. Impression: Normal twelve-lead EKG *DC/Admit/Observation/Transfer Diagnosis at time of Disposition: Weakness - Referrals - Patient Instructions - Post Discharge Activity
[2017-09-21 11:27] LABS: BASO % 0.5 % (0-2.0); EOS % 2.4 % (0-4.5); HEMATOCRIT 43.1 % (35.4-49); HEMOGLOBIN 14.4 GM/dL (11.7-16.9); LYMPH % 27.4 % (8-40); MCH 28.4 pg (25.7-33.7); MCHC 33.5 g/dl (32.0-35.9); MEAN CELL VOLUME 84.7 fl (80-96); MEAN PLT VOLUME 9.4 fl (7.5-11.1); MONO % 5.9 % (3.8-10.2); NEUT % 63.8 % (42.8-82.8); PLATELET COUNT 332 K/MM3 (134-434); RBC 5.09 M/mm3 (4.00-5.60); RDW 14.6 % (11.9-15.9); WHITE BLOOD COUNT 8.3 K/mm3 (4.0-10.0)
--- NOTE | 2017-09-21 11:30 | PDOC ---
History of Present Illness - General Chief Complaint: Weakness Stated Complaint: FATIGUE Time Seen by Provider: 09/21/17 10:10 History Source: Patient Exam Limitations: No Limitations - History of Present Illness Initial Comments: CHIEF COMPLAINT: 56 y/o afebrile male with PMH NIDDM, HTN and HLD c/o weakness x 2 months. HISTORY OF PRESENT ILLNESS: The patient states he has tried to see his PCP but can never get an appointment. He denies f/c, n/v/d, ALAS, neck pain, changes in vision/hearing, Cp, SOB, cough, abd pain, back pain, hematuria, dysuria. Vital signs on arrival are within normal limits. REVIEW OF SYSTEMS: GENERAL/CONSTITUTIONAL: No fever/chills. + weakness. No weight change. HEAD, EYES, EARS, NOSE AND THROAT: No change in vision. No ear pain or discharge. No sore throat. CARDIOVASCULAR: No chest pain or shortness of breath. RESPIRATORY: No cough, wheezing, or hemoptysis. GASTROINTESTINAL: No abd pain, nausea, vomiting, diarrhea. GENITOURINARY: No dysuria, frequency, or change in urination. MUSCULOSKELETAL: No joint or muscle swelling or pain. No neck or back pain. SKIN: No rash or easy bruising. NEUROLOGIC: No headache, vertigo, loss of consciousness, or loss of sensation. PHYSICAL EXAM: GENERAL: The patient is awake, alert, and fully oriented, in no acute distress. HEAD: Normal with no signs of trauma. ENT: Pupils equal, round and reactive to light, extraocular movements intact, sclera anicteric, conjunctiva clear. Neck supple. LUNGS: Clear to auscultation bilaterally. Normal excursion. No respiratory distress or use of accessory muscles. CV: RRR, S1/S2, no MRG. Cap refill < 2 sec. ABDOMEN: Soft, non-distended, non-tender even to deep palpation, no hepatomegaly or splenomegaly, no masses. EXTREMITIES: Normal range of motion, no edema. NEUROLOGICAL: Normal speech, normal gait. CN II-XII grossly intact. SKIN: Warm, dry, normal turgor, no rashes or lesions noted. Past History - Past Medical History Allergies/Adverse Reactions: Allergies Allergy/AdvReac Type Severity Reaction Status Date / Time morphine Allergy Verified 09/21/17 10:02 Home Medications: Ambulatory Orders metFORMIN HCL [Metformin HCl] 1,000 mg PO BID 05/28/15 Aspirin [ASA -] 81 mg PO DAILY #30 tab.chew 01/17/17 Atorvastatin Ca [Lipitor] 40 mg PO HS #30 tablet 01/17/17 Losartan Potassium [Cozaar -] 50 mg PO DAILY 09/21/17 Sitagliptin Phosphate [Januvia] 100 mg PO DAILY 09/21/17 COPD: No Diabetes: Yes HTN: No Kidney Stones: Yes - Surgical History Appendectomy: Yes - Suicide/Smoking/Psychosocial Hx Smoking History: Never smoked Have you smoked in the past 12 months: No Information on smoking cessation initiated: No Hx Alcohol Use: No Drug/Substance Use Hx: No Substance Use Type: None Hx Substance Use Treatment: No *Physical Exam - Vital Signs Last Vital Signs Temp Pulse Resp BP Pulse Ox 97.8 F 90 16 155/90 100 09/21/17 10:00 09/21/17 10:00 09/21/17 10:00 09/21/17 10:00 09/21/17 10:00 Heart Score/ECG Review - ECG Intrepretation Comment:: Twelve-lead EKG was performed and reviewed by Dr. Merino. There is normal sinus rhythm with a normal rate. The axis is normal. The intervals are normal. Nonspecific T wave abnormality. Impression: Abnormal twelve-lead EKG ED Treatment Course - LABORATORY CBC & Chemistry Diagram: 09/21/17 11:20 09/21/17 11:20 Medical Decision Making - Medical Decision Making A/P: 56 y/o male with HTN, HLD and DM c/o weakness x 2 months. Plan is as follows: 1. labs 2. EKG 3. UA/culture Troponin 0.24. Spoke with Dr. Davenport and she accepts admission to [facility] paged. Patient made aware of plan. *DC/Admit/Observation/Transfer Diagnosis at time of Disposition: Weakness, Elevated troponin - Discharge Dispostion Condition at time of disposition: Stable Decision to Admit order: Yes - Referrals - Patient Instructions - Post Discharge Activity
[2017-09-21 12:22] LABS: ALBUMIN 3.8 g/dl (3.4-5.0); ALK PHOS 73 U/L (45-117); ANION GAP 7 (8-16); BILIRUBIN,TOTAL 0.6 mg/dL (0.2-1.0); BLOOD UREA NITROGEN 19 mg/dL (7-18); CALCIUM 9.5 mg/dL (8.5-10.1); CHLORIDE 106 mmol/L (98-107); CO2 26 mmol/L (21-32); CREATININE 1.1 mg/dL (0.7-1.3); GLUCOSE,RANDOM 245 mg/dL (74-106); POTASSIUM 4.8 mmol/L (3.5-5.1); SGOT/AST 13 U/L (15-37); SGPT/ALT 25 U/L (12-78); SODIUM 139 mmol/L (136-145)
--- NOTE | 2017-09-21 13:14 | EKG ---
Test Reason : Blood Pressure : / mmHG Vent. Rate : 075 BPM Atrial Rate : 075 BPM P-R Int : 164 ms QRS Dur : 100 ms QT Int : 362 ms P-R-T Axes : 072 -06 097 degrees QTc Int : 404 ms NORMAL SINUS RHYTHM INCOMPLETE RIGHT BUNDLE BRANCH BLOCK NONSPECIFIC T WAVE ABNORMALITY ABNORMAL ECG WHEN COMPARED WITH ECG OF 16-JAN-2017 10:40, PREMATURE VENTRICULAR COMPLEXES ARE NO LONGER PRESENT Confirmed by SHRUTHI LARRY, YONAS ([id number]) on 09/21/2017 1:13:49 PM Referred By: Confirmed By:YONAS HAWKINS MD
[2017-09-21 13:38] LABS: URINE APPEARANCE CLEAR; URINE BILIRUBIN NEGATIVE (<2.0 mg/dL); URINE COLOR LTYELLOW; URINE GLUCOSE (UA) 2+ (NEGATIVE); URINE KETONE NEGATIVE (NEGATIVE); URINE LEUK ESTERASE NEGATIVE (NEGATIVE); URINE NITRITE NEGATIVE (NEGATIVE); URINE UROBILINOGEN NEGATIVE mg/dL (0.2-1.0)
[2017-09-21 13:42] LABS: URINE PROTEIN 2+ (NEGATIVE)
--- NOTE | 2017-09-21 13:50 | CON.CARD ---
Consult Consult Specialty:: Cardiology Referred by:: Dr. Davenport Reason for Consultation:: elevated troponin - History of Present Illness Chief Complaint: generalized weakness History of Present Illness: 56 year old man with a PMHx of DM, HTN admission here 01/2017 with chest pain had a nuclear stress test showing no ischemia and an echo showing overall normal structural heart now presents with 2 month h/o fatigue, tiredness, generalized weakness. Also reports nausea and vomiting when he eats too much food. Pt seen and examined in the ER in nad. states he thinks it is the medication that is causing his symptoms. states he tried to get an appointment with his PMD but could not be seen soon enough so he came to the ER. He denies having had any chest pain since admission 01/2017. No sob. No pnd, orthopnea, or LE edema. No lightheadedness, dizziness, syncope, or near syncope. - History Source History Provided By: Patient, Medical Record Limitations to Obtaining History: No Limitations - Past Medical History Cardio/Vascular: Yes: HTN, Hyperlipdemia Endocrine: Yes: Diabetes Mellitus - Past Surgical History Past Surgical History: Yes: Appendectomy - Alcohol/Substance Use Hx Alcohol Use: No History of Substance Use: reports: None - Smoking History Smoking history: Never smoked Have you smoked in the past 12 months: No - Social History ADL: Independent History of Recent Travel: No Home Medications - Allergies Allergies/Adverse Reactions: Allergies Allergy/AdvReac Type Severity Reaction Status Date / Time morphine Allergy Verified 09/21/17 10:02 - Home Medications Home Medications: Ambulatory Orders metFORMIN HCL [Metformin HCl] 1,000 mg PO BID 05/28/15 Aspirin [ASA -] 81 mg PO DAILY #30 tab.chew 01/17/17 Atorvastatin Ca [Lipitor] 40 mg PO HS #30 tablet 01/17/17 Losartan Potassium [Cozaar -] 50 mg PO DAILY 09/21/17 Sitagliptin Phosphate [Januvia] 100 mg PO DAILY 09/21/17 Family Disease History - Family Disease History Family History: Denies Review of Systems - Review of Systems Constitutional: reports: Lethargy, Malaise, Weakness. denies: No Symptoms, Chills, Diaphoresis, Fever, Loss of Appetite, Night Sweats, Unintentional Wgt. Loss, Other Eyes: denies: No Symptoms, Blind Spots, Blurred Vision, Double Vision, Eye Pain , Floaters, Photophobia, Recent Change in Vision, Other HENT: denies: No Symptoms, Difficult Swallowing, Ear Discharge, Ear Pain, Epistaxis, Gingival Bleeding, Hearing Loss, Mouth Swelling, Nasal Congestion, Ocular Prosthesis, Throat Pain, Toothache, Ringing in Ears, Other Neck: denies: No Symptoms, Decreased ROM, Lumps, Pain on Movement, Stiffness, Swollen Glands, Tenderness, Other Cardiovascular: denies: No Symptoms, Chest Pain, Edema, Palpitations, Shortness of Breath, Other Respiratory: denies: No Symptoms, Cough, Exercise Intolerance, Hemoptysis, Orthopnea, PND, Snoring, SOB, SOB on Exertion, Wheezing, Other Gastrointestinal: reports: Nausea, Vomiting. denies: No Symptoms, Abdominal Pain, Bloating, Constipation, Diarrhea, Dysphagia, Indigestion, Melena, Rectal Bleeding, Vomiting Blood, Other Genitourinary: denies: No Symptoms, Burning, Discharge, Dysuria, Flank Pain, Frequency, Hematuria, Incontinence, Lesions, Menses, Pain, Testicular Mass, Testicular Pain, Testicular Swelling, Urgency, Vaginal Bleeding, Other Breasts: denies: No Symptoms Reported, See HPI, Breast Implants, Discharge from Nipple, Lumps, Pain, Skin Changes, Other Musculoskeletal: denies: No Symptoms, Back Pain, Crepitus, Decreased ROM, Extremity Pain, Joint Pain, Joint Swelling, Muscle Pain, Muscle Cramps, Muscle Weakness, Other Integumentary: denies: No Symptoms, Blister, Bruising, Change in Color, Eczema, Erythema, Incision, Lesions, Lump, Pallor, Pruritis, Rash, Wound, Other Neurological: denies: No Symptoms, Change in LOC, Change in Speech, Confusion, Dizziness, Headache, Incoordination, Numbness, Parasthesia, Pre-Existing Deficit , Seizure, Syncope, Tremors, Unsteady Gait, Weakness, Other Endocrine: denies: No Symptoms, Excessive Sweating, Flushing, Increased Hunger, Increased Thirst, Intolerance to Cold, Intolerance to Heat, Unexplained Weight Gain, Unexplained Weight Loss, Other Hematology/Lymphatic: denies: No Symptoms, Easily Bruised, Excessive Bleeding, Swollen Glands, Other Psychiatric: denies: No Symptoms, Altered Sleep Pattern, Anxiety, Depression, Hallucinations, Panic, Paranoia, Suicidal, Other - Risk Factors Known Risk Factors: Yes: Diabetes Mellitus, Hypercholesterolemia, Hypertension Vital Signs: Vital Signs Temperature 97.8 F 09/21/17 10:00 Pulse Rate 90 09/21/17 10:00 Respiratory Rate 16 09/21/17 10:00 Blood Pressure 155/90 09/21/17 10:00 O2 Sat by Pulse Oximetry (%) 100 09/21/17 10:00 Constitutional: Yes: Well Nourished, No Distress, Calm Eyes: Yes: WNL, Conjunctiva Clear, EOM Intact, PERRL HENT: Yes: WNL, Atraumatic, Normocephalic Neck: Yes: WNL, Supple, Trachea Midline Respiratory: Yes: WNL, Regular, CTA Bilaterally Gastrointestinal: Yes: WNL, Normal Bowel Sounds, Soft. No: Distention, Tenderness Renal/: Yes: WNL Cardiovascular: Yes: WNL, Regular Rate and Rhythm. No: Bradycardia, Tachycardia , Pulse Irregular, Gallop, Rub, Varicosities JVD: No Carotid Bruit: No PMI: Non-Displaced Heart Sounds: Yes: S1, S2. No: Split S2, S3, S4, Clicks, Gallop, Rub, Bruit Murmur: No: Systolic Murmur, Diastolic Murmur Musculoskeletal: Yes: WNL Extremities: Yes: WNL Edema: No Peripheral Pulses WNL: Yes Peripheral Pulses: 2+ Left Doralis Pedis, 2+ Right Dorsalis Pedis Integumentary: Yes: WNL Neurological: Yes: WNL, Alert, Oriented, Cran Nerves II-XII Intact ...Motor Strength: WNL Psychiatric: Yes: WNL, Alert, Oriented - Other Data Labs, Other Data: CBC, BMP 09/21/17 11:20 09/21/17 11:20 Troponin, BNP 09/21/17 11:20 Troponin I 0.24 H D Troponin, BNP 09/21/17 11:20 Troponin I 0.24 H D ekg-nsr 75bpm, incomplete rbbb, nonspecific St abnl, no sig changes from past ekgs Echo: Report Reviewed Imaging - Results Chest X-ray: Report Reviewed, Image Reviewed EKG: Report Reviewed, Image Reviewed Other: Report Reviewed, Image Reviewed Assessment/Plan 56 year old man with a PMHx of DM, HTN admission here 01/2017 with chest pain had a nuclear stress test showing no ischemia and an echo showing overall normal structural heart now presents with 2 month h/o fatigue, tiredness, generalized weakness. Also reports nausea and vomiting when he eats too much food. Pt seen and examined in the ER in nad. states he thinks it is the medication that is causing his symptoms. states he tried to get an appointment with his PMD but could not be seen soon enough so he came to the ER. He denies having had any chest pain since admission 01/2017. No sob. No pnd, orthopnea, or LE edema. No lightheadedness, dizziness, syncope, or near syncope. Nuclear stress test 01/17/18-Nicola 6min, no ekgs changes, perfusion showed diaphragmatic attenuation artifact, no ischemia reported, LVEF 53% ECHO 01/17/17-Normal LV systolic function, mild TR, mild aortic sclerosis, mild MAC Elevated troponin-unclear etiology, mildly elevated with normal CK level -pt c/o generalized fatigue for 2 months, but no chest pain or sob -unlikely ACS -stress test as above showed no ischemia and echo showed normal structural heart -would check 2nd set of cardiac enzymes, if not trending up significantly, pt would be acceptable for discharge from a cardiac standpoint with outpatient fup. Generalized fatigue-unknown etiology, unlikely cardiac related -possibly medication related as he is on some new meds since last admission including Lipitor and Losartan -can check TFTs either inpatient or outpatient
[2017-09-21 14:09] LABS: URINE HYALINE CAST 1 /lpf; URINE MUCUS RARE
--- NOTE | 2017-09-21 15:33 | HP ---
Admitting History and Physical - Primary Care Physician PCP: Usama Davenport - Admission Chief Complaint: chest pain History of Present Illness: 56 year old man with a PMHx of DM, HTN admission here 01/2017 ,with chest pain had a nuclear stress test showing no ischemia and an echo showing overall normal structural heart now presents with 2 month h/o fatigue, tiredness, generalized weakness. Also reports nausea and vomiting when he eats too much food. Pt seen and examined in the ER in [place]. states he thinks it is the medication that is causing his symptoms. states he tried to get an appointment with his PMD but could not be seen soon enough so he came to the ER. - - Past Medical History Cardiovascular: Yes: HTN Endocrine: Yes: Diabetes Mellitus - Past Surgical History Past Surgical History: Yes: Appendectomy - Smoking History Smoking history: Never smoked Have you smoked in the past 12 months: No - Alcohol/Substance Use Hx Alcohol Use: No History of Substance Use: reports: None Home Medications - Allergies Allergies/Adverse Reactions: Allergies Allergy/AdvReac Type Severity Reaction Status Date / Time morphine Allergy Verified 09/21/17 10:02 - Home Medications Home Medications: Ambulatory Orders metFORMIN HCL [Metformin HCl] 1,000 mg PO BID 05/28/15 Aspirin [ASA -] 81 mg PO DAILY #30 tab.chew 01/17/17 Atorvastatin Ca [Lipitor] 40 mg PO HS #30 tablet 01/17/17 Losartan Potassium [Cozaar -] 50 mg PO DAILY 09/21/17 Sitagliptin Phosphate [Januvia] 100 mg PO DAILY 09/21/17 Physical Examination Vital Signs: Vital Signs Temperature 97.8 F 09/21/17 10:00 Pulse Rate 90 09/21/17 10:00 Respiratory Rate 16 09/21/17 10:00 Blood Pressure 155/90 09/21/17 10:00 O2 Sat by Pulse Oximetry (%) 100 09/21/17 10:00 Constitutional: Yes: No Distress HENT: Yes: Atraumatic Neck: Yes: Supple Cardiovascular: Yes: Regular Rate and Rhythm Respiratory: Yes: CTA Bilaterally Gastrointestinal: Yes: Normal Bowel Sounds Extremities: Yes: WNL Neurological: Yes: Alert, Oriented Labs: CBC, BMP 09/21/17 11:20 09/21/17 11:20 Problem List - Problems (1) Diabetes Assessment/Plan: ON PO MEDS BGMS Code(s): E11.9 - TYPE 2 DIABETES MELLITUS WITHOUT COMPLICATIONS (2) Elevated troponin Assessment/Plan: will monitor no chest pain cardiology on board Code(s): R74.8 - ABNORMAL LEVELS OF OTHER SERUM ENZYMES (3) Hypertension Assessment/Plan: on meds stable Code(s): I10 - ESSENTIAL (PRIMARY) HYPERTENSION Qualifiers: Hypertension type: essential hypertension Qualified Code(s): I10 - Essential (primary) hypertension Assessment/Plan Laboratory Tests 09/21/17 09/21/17 09/21/17 11:20 11:20 13:22 WBC 8.3 RBC 5.09 Hgb 14.4 Hct 43.1 MCV 84.7 MCH 28.4 MCHC 33.5 RDW 14.6 Plt Count 332 MPV 9.4 Absolute Neuts (auto) 5.3 Neutrophils % 63.8 Lymphocytes % 27.4 Monocytes % 5.9 Eosinophils % 2.4 Basophils % 0.5 Nucleated RBC % 0 Sodium 139 Potassium 4.8 Chloride 106 Carbon Dioxide 26 Anion Gap 7 L BUN 19 H Creatinine 1.1 Creat Clearance w eGFR > 60 Random Glucose 245 H Calcium 9.5 Total Bilirubin 0.6 AST 13 L D ALT 25 D Alkaline Phosphatase 73 Creatine Kinase 76 Troponin I 0.24 H D Total Protein 7.0 Albumin 3.8 Urine Color Ltyellow Urine Appearance Clear Urine pH 5.0 Ur Specific [place] 1.018 Urine Protein 2+ H Urine Glucose (UA) 2+ H Urine Ketones Negative Urine Blood Negative Urine Nitrite Negative Urine Bilirubin Negative Urine Urobilinogen Negative Ur Leukocyte Esterase Negative Urine WBC (Auto) <1 Urine RBC (Auto) None Hyaline Casts 1 Urine Mucus Rare
[2017-09-21 20:24] VITALS: BMI 27.0
[2017-09-21] MEDS: metFORMIN HCL 500 MG TABLET (FP) PO SCH (21:22)
[2017-09-21] MEDS ORDERED: ATORVASTATIN CA 40 MG TABLET (FP) PO SCH (22:00)
[2017-09-22 06:37] LABS: BASO % 0.3 % (0-2.0); EOS % 3.7 % (0-4.5); HEMATOCRIT 39.9 % (35.4-49); HEMOGLOBIN 13.6 GM/dL (11.7-16.9); LYMPH % 31.1 % (8-40); MCH 28.7 pg (25.7-33.7); MEAN CELL VOLUME 84.3 fl (80-96); MEAN PLT VOLUME 9.5 fl (7.5-11.1); MONO % 8.1 % (3.8-10.2); NEUT % 56.8 % (42.8-82.8); PLATELET COUNT 310 K/MM3 (134-434); RBC 4.73 M/mm3 (4.00-5.60); WHITE BLOOD COUNT 8.4 K/mm3 (4.0-10.0)
[2017-09-22] MEDS: metFORMIN HCL 500 MG TABLET (FP) PO SCH ×2 (06:41→16:42)
[2017-09-22 06:54] LABS: ALBUMIN 3.5 g/dl (3.4-5.0); ANION GAP 6 (8-16); BLOOD UREA NITROGEN 19 mg/dL (7-18); CALCIUM 9.4 mg/dL (8.5-10.1); CHLORIDE 106 mmol/L (98-107); CO2 30 mmol/L (21-32); GLUCOSE,RANDOM 227 mg/dL (74-106); POTASSIUM 4.7 mmol/L (3.5-5.1); SODIUM 142 mmol/L (136-145)
[2017-09-22 06:59] LABS: ALK PHOS 69 U/L (45-117); BILIRUBIN,TOTAL 0.6 mg/dL (0.2-1.0); SGOT/AST 11 U/L (15-37); SGPT/ALT 28 U/L (12-78); TOT PROT 6.6 g/dl (6.4-8.2)
[2017-09-22] MEDS ORDERED: sitaGLIPtin PHOSPHATE 100 MG TABLET (FP) PO SCH (07:00)
[2017-09-22] MEDS ORDERED: LOSARTAN POTASSIUM 50 MG TABLET (FP) PO SCH (10:00)
[2017-09-22] MEDS ORDERED: ASPIRIN 81 MG CHEWABLE TABLETS PO SCH (10:00)
--- NOTE | 2017-09-22 15:07 | PN ---
Progress Note, Physician Chief Complaint: Chest discomfort - Current Medication List Current Medications: Active Medications Aspirin (Asa -) 81 mg PO DAILY [facility] [place] Last Admin: 09/22/17 09:15 Dose: 81 mg Atorvastatin Calcium (Lipitor -) 40 mg PO HS [facility] Last Admin: 09/21/17 21:21 Dose: 40 mg Losartan Potassium (Cozaar -) 50 mg PO DAILY [facility] Last Admin: 09/22/17 09:15 Dose: 50 mg Metformin HCl (Glucophage -) 1,000 mg PO BID@0700,1630 [facility] [place] Last Admin: 09/22/17 06:41 Dose: 1,000 mg Sitagliptin Phosphate (Januvia -) 100 mg PO 0700 [facility] Last Admin: 09/22/17 06:41 Dose: 100 mg - Objective Vital Signs: Vital Signs Temperature 97.7 F 09/22/17 14:10 Pulse Rate 89 09/22/17 14:10 Respiratory Rate 20 09/22/17 14:10 Blood Pressure 142/74 09/22/17 14:10 O2 Sat by Pulse Oximetry (%) 99 09/21/17 19:57 Constitutional: Yes: Well Nourished, No Distress, Calm Eyes: Yes: WNL, Conjunctiva Clear, EOM Intact HENT: Yes: WNL, Atraumatic, Normocephalic Neck: Yes: WNL, Supple, Trachea Midline Cardiovascular: Yes: WNL, Regular Rate and Rhythm, S1, S2 Respiratory: Yes: WNL, Regular, CTA Bilaterally Gastrointestinal: Yes: WNL, Normal Bowel Sounds, Soft ...Rectal Exam: Yes: Deferred Genitourinary: Yes: WNL Breast(s): Yes: WNL Musculoskeletal: Yes: WNL Extremities: Yes: WNL Edema: No Peripheral Pulses WNL: Yes Peripheral Pulses: Left Radial: 2+, Right Radial: 2+, Left Doralis Pedis: 2+, Right Dorsalis Pedis: 2+, Left Femoral: 2+, Right Femoral: 2+ Integumentary: Yes: WNL Neurological: Yes: WNL, Alert, Oriented Labs: CBC, BMP 09/22/17 05:30 09/22/17 05:30 Assessment/Plan The patient is comfortable and symptom free. The chest pains did not recur. Troponins are trending down. CPKs remain normal. There is no need for further cardiac workup at this point. May stop telemetry. No need for further cardiac workup at this point. Outpatient follow-up with our group within 10 days. Please do not hesitate to call us PRN.
--- NOTE | 2017-09-22 17:09 | DS ---
Physical Examination Vital Signs: Vital Signs Temperature 97.7 F 09/22/17 14:10 Pulse Rate 89 09/22/17 14:10 Respiratory Rate 20 09/22/17 14:10 Blood Pressure 142/74 09/22/17 14:10 O2 Sat by Pulse Oximetry (%) 99 09/21/17 19:57 Constitutional: Yes: No Distress HENT: Yes: Atraumatic Neck: Yes: Supple Cardiovascular: Yes: Regular Rate and Rhythm Respiratory: Yes: CTA Bilaterally Gastrointestinal: Yes: Normal Bowel Sounds Extremities: Yes: WNL Neurological: Yes: Alert, Oriented Labs: CBC, BMP 09/22/17 05:30 09/22/17 05:30 Discharge Summary Reason For Visit: ELEVATED TROPONIN; WEAKNESS Current Active Problems Diabetes (Acute) Elevated troponin (Acute) Weakness (Acute) Condition: Stable - Instructions - Home Medications Comprehensive Discharge Medication List: Ambulatory Orders metFORMIN HCL [Metformin HCl] 1,000 mg PO BID 05/28/15 Aspirin [ASA -] 81 mg PO DAILY #30 tab.chew 01/17/17 Atorvastatin Ca [Lipitor] 40 mg PO HS #30 tablet 01/17/17 Losartan Potassium [Cozaar -] 50 mg PO DAILY 09/21/17 Sitagliptin Phosphate [Januvia] 100 mg PO DAILY 09/21/17 [place] [facility]
[2017-09-22 19:49] VITALS: BP 149/90; PULSE 81; TEMP 98.2
== END 2017-09-22 18:16 | disposition home or self-care (01) ==
LOC: JER 09:53 → JERBED 13:23 → J4W 19:07
PROVIDERS: ADMIT Internal Medicine; ATTEND Internal Medicine
DX: R77.8 Other specified abnormalities of plasma proteins (principal); R53.1 Weakness; R07.9 Chest pain, unspecified; I10 Essential (primary) hypertension; E78.5 Hyperlipidemia, unspecified; E11.9 Type 2 diabetes mellitus without complications; Z79.82 Long term (current) use of aspirin; Z79.84 Long term (current) use of oral hypoglycemic drugs; Z87.442 Personal history of urinary calculi
CPT/HCPCS: 36415; 80053; 81003; 81015; 82550; 82962; 84443; 84484; 85025; 87086; 93005; 93010; 99285-25; G0378

== ENCOUNTER 2019-04-17 10:30 | Inpatient (IN) | payer OTHER ==
[2019-04-17] MEDS ORDERED: SODIUM CHLORIDE 1,000 ML IV STA (11:43)
--- NOTE | 2019-04-17 12:06 | PDOC ---
History of Present Illness - General Chief Complaint: Respiratory Stated Complaint: NAUSEA/VOMITING Time Seen by Provider: 04/17/19 11:41 - History of Present Illness Initial Comments: Mr. Cruz is a 58 y/o male with PMH significant for triple bypass in 2018, HTN, DM, kidney stones, presenting today with nausea and vomiting x3 and subjective fever that started yesterday. Denies chest pain. Denies shortness of breath. Denies abdominal pain. Denies diarrhea. Denies dysuria. Denies headache. Denies muscle aches. PMH: htn, dm, kidney stones Past History - Past Medical History Allergies/Adverse Reactions: Allergies Allergy/AdvReac Type Severity Reaction Status Date / Time morphine Allergy Verified 04/17/19 10:46 Home Medications: Ambulatory Orders metFORMIN HCL [Metformin HCl] 1,000 mg PO BID 05/28/15 Aspirin [ASA -] 81 mg PO DAILY #30 tab.chew 01/17/17 Atorvastatin Ca [Lipitor] 40 mg PO HS #30 tablet 01/17/17 Losartan Potassium [Cozaar -] 50 mg PO DAILY 09/21/17 Dulaglutide [Trulicity] 1.5 mg SQ WEEKLY 04/17/19 Metoprolol Tartrate [Lopressor] 100 mg PO BID 04/17/19 Oxybutynin Chloride 5 mg PO DAILY 04/17/19 Ranitidine HCl 300 mg PO HS 04/17/19 Tamsulosin HCl 0.4 mg PO DAILY 04/17/19 COPD: No Diabetes: Yes HTN: No Kidney Stones: Yes - Surgical History Appendectomy: Yes Cardiac Surgery: Yes ([facility]) - Immunization History Immunization Up to Date: Yes - Psycho Social/Smoking Cessation Hx Smoking History: Unknown if ever smoked Have you smoked in the past 12 months: No Hx Alcohol Use: No Drug/Substance Use Hx: No Substance Use Type: None Hx Substance Use Treatment: No Review of Systems - Review of Systems Comments:: GENERAL/CONSTITUTIONAL: Reports fever. Reports malaise. HEAD, EYES, EARS, NOSE AND THROAT: No change in vision. No change in hearing. No sore throat._ CARDIOVASCULAR: No chest pain or shortness of breath_ RESPIRATORY: Denies cough, hemoptysis_ GASTROINTESTINAL: Reports nausea and vomiting. GENITOURINARY: No dysuria, frequency, or change in urination._ MUSCULOSKELETAL: No joint or muscle swelling or pain. No neck or back pain._ SKIN: No rash_ NEUROLOGIC: No headache, vertigo, loss of consciousness, or change in strength/ sensation._ ENDOCRINE: No increased thirst. No abnormal weight change_ HEMATOLOGIC/LYMPHATIC: No anemia, easy bleeding, or history of blood clots._ ALLERGIC/IMMUNOLOGIC: No hives or skin allergy._ *Physical Exam - Vital Signs Last Vital Signs Temp Pulse Resp BP Pulse Ox 98 F 114 H 20 121/67 98 04/17/19 10:49 04/17/19 10:49 04/17/19 10:49 04/17/19 10:49 04/17/19 10:49 - Physical Exam GENERAL: Awake, alert, and oriented to person/place/time, in no acute distress_ HEAD: No signs of trauma, normoc ephalic, atraumatic _ EYES: PERRLA, EOMI, sclera anicteric, conjunctiva clear_ ENT: Hearing grossly normal, nares patent, oropharynx clear without exudates. No uvular deviation. Moist mucosa_ NECK: Normal ROM, supple, no lymphadenopathy, JVD, or masses_ LUNGS: No distress, speaks in full sentences, clear to auscultation bilaterally _ HEART: Regular rate and rhythm, normal S1 and S2, no murmurs appreciated, peripheral pulses normal and equal bilaterally._ ABDOMEN: Soft, nontender, normoactive bowel sounds. No guarding, no rebound. No masses_ EXTREMITIES: Normal inspection, Normal range of motion, no edema. No clubbing or cyanosis_ NEUROLOGICAL: Cranial nerves II through XII grossly intact. Normal speech, normal gait, no focal sensorimotor deficits _ SKIN: Warm, Dry, normal turgor, no rashes or lesions noted_ ED Treatment Course - LABORATORY CBC & Chemistry Diagram: 04/17/19 11:59 04/17/19 14:30 Medical Decision Making - Medical Decision Making 04/17/19 12:05 EKG shows sinus tachycardia, 118 bpm, no ST elevation, QTc 462. 04/17/19 12:12 58M hx of triple bypass presenting with fever, nausea, vomiting x3 that started 2 days ago. Sepsis work up initiated. 04/17/19 12:38 CXR shows no acute intra thoracic pathology. 04/17/19 15:53 Labs reviewed. Laboratory Tests 02/07/0104/17/19 04/17/19 11:59 11:59 11:59 WBC RBC Hgb Hct MCV MCH MCHC RDW Plt Count MPV Absolute Neuts (auto) Neutrophils % Neutrophils % (Manual) Band Neutrophils % Lymphocytes % Lymphocytes % (Manual) Monocytes % Monocytes % (Manual) Eosinophils % Eosinophils % (Manual) Basophils % Basophils % (Manual) Myelocytes % (Man) Promyelocytes % (Man) Blast Cells % (Manual) Nucleated RBC % Metamyelocytes Hypochromia Platelet Estimate Polychromasia Poikilocytosis Anisocytosis Microcytosis Macrocytosis Spherocytes Tear Drop Cells Ovalocytes [place] Cells PT with INR 14.20 H INR 1.20 H PTT (Actin FS) 34.7 VBG pH POC VBG pCO2 POC VBG pO2 VBG HCO3 VBG O2 Sat (Tina) VBG Base Excess Sodium Potassium Chloride Carbon Dioxide Anion Gap BUN Creatinine Est GFR (CKD-EPI)AfAm Est GFR (CKD-EPI)NonAf Random Glucose Lactic Acid Calcium Magnesium Total Bilirubin AST ALT Alkaline Phosphatase Troponin I < 0.02 Total Protein Albumin Lipase Influenza A (Rapid) Negative Influenza B (Rapid) Negative 04/17/19 04/17/19 04/17/19 11:59 11:59 11:59 WBC 12.0 H RBC 4.87 Hgb 13.8 Hct 41.7 MCV 85.6 MCH 28.3 MCHC 33.0 RDW 15.0 Plt Count 304 MPV 9.9 Absolute Neuts (auto) 10.9 H Neutrophils % 91.0 H D Neutrophils % (Manual) 90.0 H Band Neutrophils % 4.0 Lymphocytes % 4.7 L D Lymphocytes % (Manual) 2.0 L Monocytes % 3.4 L Monocytes % (Manual) 1 L Eosinophils % 0.4 D Eosinophils % (Manual) 0.0 Basophils % 0.5 Basophils % (Manual) 0.0 Myelocytes % (Man) 0 Promyelocytes % (Man) 0 Blast Cells % (Manual) 0 Nucleated RBC % 0 Metamyelocytes 0 Hypochromia 0 Platelet Estimate Normal Polychromasia 0 Poikilocytosis 1+ Anisocytosis 1+ Microcytosis 1+ Macrocytosis 0 Spherocytes 1+ Tear Drop Cells 1+ Ovalocytes 1+ [place] Cells 1+ PT with INR INR PTT (Actin FS) VBG pH POC VBG pCO2 POC VBG pO2 VBG HCO3 VBG O2 Sat (Tina) VBG Base Excess Sodium 139 Potassium 4.9 Chloride 108 H Carbon Dioxide 20 L Anion Gap 11 BUN 27.9 H Creatinine 1.5 H Est GFR (CKD-EPI)AfAm 57.82 Est GFR (CKD-EPI)NonAf 49.88 Random Glucose 235 H Lactic Acid 2.4 H* Calcium 8.6 Magnesium 1.6 L Total Bilirubin 1.2 H AST 15 ALT 20 Alkaline Phosphatase 99 Troponin I Total Protein 6.9 Albumin 3.6 Lipase 87 Influenza A (Rapid) Influenza B (Rapid) 04/17/19 04/17/19 04/17/19 11:59 14:30 14:30 WBC RBC Hgb Hct MCV MCH MCHC RDW Plt Count MPV Absolute Neuts (auto) Neutrophils % Neutrophils % (Manual) Band Neutrophils % Lymphocytes % Lymphocytes % (Manual) Monocytes % Monocytes % (Manual) Eosinophils % Eosinophils % (Manual) Basophils % Basophils % (Manual) Myelocytes % (Man) Promyelocytes % (Man) Blast Cells % (Manual) Nucleated RBC % Metamyelocytes Hypochromia Platelet Estimate Polychromasia Poikilocytosis Anisocytosis Microcytosis Macrocytosis Spherocytes Tear Drop Cells Ovalocytes [place] Cells PT with INR INR PTT (Actin FS) VBG pH 7.34 POC VBG pCO2 42.1 POC VBG pO2 < 49 H VBG HCO3 21.9 L VBG O2 Sat (Tina) 74.4 VBG Base Excess -3.3 L Sodium 141 Potassium 4.0 Chloride 113 H Carbon Dioxide 20 L Anion Gap 9 BUN 24.4 H Creatinine 1.3 Est GFR (CKD-EPI)AfAm 68.74 Est GFR (CKD-EPI)NonAf 59.31 Random Glucose 151 H Lactic Acid Calcium 8.0 L Magnesium Total Bilirubin 0.9 AST 9 L ALT 17 Alkaline Phosphatase 84 Troponin I Total Protein 6.0 L Albumin 3.1 L Lipase 98 Influenza A (Rapid) Influenza B (Rapid) D/w Dr. Turner who accepts the patient for admission. Discharge - Discharge Information Problems reviewed: Yes Clinical Impression/Diagnosis: Sepsis Condition: Stable - Admission Yes - Follow up/Referral - Patient Discharge Instructions - Post Discharge Activity
[2019-04-17] MEDS ORDERED: SODIUM CHLORIDE 0.9% 500 ML INFUS.BAG IV ONE (12:28)
[2019-04-17 12:32] LABS: BASO % 0.5 % (0-2.0); EOS % 0.4 % (0-4.5); HEMATOCRIT 41.7 % (35.4-49); HEMOGLOBIN 13.8 GM/dL (11.7-16.9); LYMPH % 4.7 % (8-40); MCH 28.3 pg (25.7-33.7); MEAN CELL VOLUME 85.6 fl (80-96); MEAN PLT VOLUME 9.9 fl (7.5-11.1); MONO % 3.4 % (3.8-10.2); PLATELET COUNT 304 K/MM3 (134-434); RBC 4.87 M/mm3 (4.00-5.60)
[2019-04-17] MEDS ORDERED: ONDANSETRON 4 MG/2 ML VIAL IVPB ONE (12:42)
[2019-04-17 12:43] LABS: INR 1.2 (0.83-1.09); PROTHROMBIN TIME (PATIENT) 14.2 SEC (9.7-13.0)
[2019-04-17 12:46] LABS: ACTIVATED PTT 34.7 SECONDS (25.2-36.5)
[2019-04-17 12:49] LABS: VENOUS PC02 42.1 mmHg (38-52); VENOUS PH 7.34 (7.31-7.41)
[2019-04-17 12:58] LABS: VENOUS PO2 < 49 mmHg (28-48)
[2019-04-17] MEDS ORDERED: ACETAMINOPHEN 1000 MG/100 ML VIAL (NON FORMULARY) IVPB ONE (12:58)
[2019-04-17] MEDS ORDERED: ACETAMINOPHEN INJECTION 100 ML IVPB ONE (13:07)
[2019-04-17] MEDS ORDERED: ONDANSETRON 4 MG/2 ML VIAL ONE (13:07)
--- NOTE | 2019-04-17 13:14 | EKG ---
Test Reason : Blood Pressure : / mmHG Vent. Rate : 118 BPM Atrial Rate : 118 BPM P-R Int : 142 ms QRS Dur : 094 ms QT Int : 330 ms P-R-T Axes : 068 -26 085 degrees QTc Int : 462 ms SINUS TACHYCARDIA POSSIBLE LEFT ATRIAL ENLARGEMENT BORDERLINE ECG WHEN COMPARED WITH ECG OF 21-SEP-2017 11:42, VENT. RATE HAS INCREASED BY 43 BPM Confirmed by MD PRINCE, CHERY ([id number]) on 04/17/2019 1:13:58 PM Referred By: Confirmed By:CHERY MORRISON MD
[2019-04-17 13:38] LABS: ANISOCYTOSIS 1+; MACROCYTOSIS 0; OVALOCYTE 1+; PLATELET ESTIMATE NORMAL; TEAR DROP CELLS 1+
[2019-04-17 14:39] LABS: ALBUMIN 3.6 g/dl (3.4-5.0); BILIRUBIN,TOTAL 1.2 mg/dL (0.2-1); BLOOD UREA NITROGEN 27.9 mg/dL (7-18); CALCIUM 8.6 mg/dL (8.5-10.1); CREATININE 1.5 mg/dL (0.55-1.3); MAGNESIUM 1.6 mg/dL (1.8-2.4); POTASSIUM 4.9 mmol/L (3.5-5.1); TOT PROT 6.9 g/dl (6.4-8.2)
[2019-04-17] MEDS ORDERED: PIPERACILLIN/TAZOB 4.5 GM 4.5 GM in DEXTROSE 5%-WATER 100 ML IVPB ONE (14:56)
[2019-04-17] MEDS ORDERED: VANCOMYCIN 1 GM in D5W (PRE-DOCKED) 1,000 MG/250 ML IVPB ONE (14:56)
[2019-04-17] MEDS ORDERED: VANCOMYCIN 1 GRAM (PRE-DOCKED) 1,000 MG/250 ML BAG IVPB ONE (15:00)
[2019-04-17] MEDS ORDERED: PIPERACILLIN/TAZOB 4.5 GM 4.5 GM/100 ML BAG IVPB ONE (15:00)
--- NOTE | 2019-04-17 15:05 | PDOC ---
Documentation entered by Oscar Gama SCRIBE, acting as scribe for Kelli Etienne MD. Kelli Etienne MD: This documentation has been prepared by the Natan graf Daniel, SCRIBE, under my direction and personally reviewed by me in its entirety. I confirm that the documentation accurately reflects all work, treatment, procedures, and medical decision making performed by me. Attending Attestation - Resident Resident Name: Sanjiv Valdez - ED Attending Attestation I have performed the following: I have examined & evaluated the patient, The case was reviewed & discussed with the resident, I agree w/resident's findings & plan, Exceptions are as noted - HPI HPI: 04/17/19 11:53 The patient is a 58 year old male with a past medical history of CAD s/p triple bypass (2018), diabetes, HTN, BPH, HLD, and GERD here today for evaluation of vomiting and general weakness. The patient reports that last night he developed a sudden onset of general weakness and non bloody non blious vomiting since last night. He states that he has vomited 3 times and also notes a fever. Patient denies headache, lightheadedness, focal weakness/numbness. Denies fever , chills. Denies chest pain, shortness of breath. Denies diarrhea, abdominal pain. Denies travel, sick contacts. Allergies: morphine PCP: Mahsa Gomez [employer] Worker: Neto Garay - Physicial Exam PE: 04/17/19 11:53 GENERAL: Awake, alert, and fully oriented, in no acute distress EYES: PERRLA, EOMI, sclera anicteric, conjunctiva clear ENT: Nares patent, oropharynx clear without exudates. Dry MM NECK: Normal ROM, supple, no lymphadenopathy, JVD, or masses LUNGS: Breath sounds equal, clear to auscultation bilaterally. No wheezes, and no crackles HEART: Regular rate and rhythm, normal S1 and S2, no murmurs, rubs or gallops ABDOMEN: Soft, nontender, normoactive bowel sounds. No guarding, no rebound. No masses EXTREMITIES: Normal range of motion, no edema. No cords, erythema, or tenderness BACK: No midline spinal tenderness in cervical/thoracic/lumbar region NEUROLOGICAL: Normal speech, cranial nerves intact, equal strength and sensation b/l SKIN: Warm, Dry, normal turgor, no rashes or lesions noted. - Medical Decision Making 04/17/19 11:46 58yo M hx DM, CAD s/p bypass at [facility] 12/2017, HTN, HL presents to the ED with generalized weakness, nausea, and 3 episodes of NBNB emesis since last night. Vitals with tachycardia, and with reported fever to 102 at home, will initiate sepsis w/u Also on ddx is atypical ACS presentation given hx CAD, DM, and generalized weakness. Will start with 1L NS bolus and hydrate gently given cardiac history Abd exam benign, will hold off on imaging for now 04/17/19 15:01 Labs with leukocytosis with 4% bandemia SUDHIR likely prernal +fever 100.6, likely sepsis Pt covered with vanc/zosyn, will admit for further mgmt Heart Score/ECG Review #1 04/17/19 11:51 Twelve-lead EKG was performed and reviewed by me. Sinus tachycardia, rate 118. Normal axis. No ST elevations. T wave inversions in 1 and aVL. When compared to previous EKG, no significant change.
[2019-04-17 15:31] LABS: ALBUMIN 3.1 g/dl (3.4-5.0); BILIRUBIN,TOTAL 0.9 mg/dL (0.2-1); BLOOD UREA NITROGEN 24.4 mg/dL (7-18); CREATININE 1.3 mg/dL (0.55-1.3)
--- NOTE | 2019-04-17 16:11 | PN ---
Teaching Attending Note Name of Resident: Javier Turner ATTENDING PHYSICIAN STATEMENT I saw and evaluated the patient. I reviewed the resident's note and discussed the case with the resident. I agree with the resident's findings and plan as documented. SUBJECTIVE: Patient is a 58yom with PMHx of triple bypass in 2018, HTN, DM, kidney stones, presented today for having nausea and vomiting x3 and subjective fever that started yesterday. OBJECTIVE: Vital Signs Temperature 100.6 F H 04/17/19 13:00 Pulse Rate 114 H 04/17/19 12:15 Respiratory Rate 04/17/19 12:15 Blood Pressure 136/76 04/17/19 12:15 O2 Sat by Pulse Oximetry (%) 98 04/17/19 12:15 GENERAL: The patient is awake, alert, and fully oriented, in no acute distress. HEAD: Normal with no signs of trauma. EYES: PERRL, extraocular movements intact, sclera anicteric, conjunctiva clear. ENT: Ears normal, oropharynx clear without exudates, moist mucous membranes. NECK: Trachea midline, full range of motion, supple. LUNGS: Breath sounds equal, clear to auscultation bilaterally, no wheezes, no crackles, no accessory muscle use. HEART: Regular rate and rhythm, S1, S2 without murmur, rub or gallop. ABDOMEN: Soft, nontender, nondistended, normoactive bowel sounds, no guarding, no rebound, no hepatosplenomegaly, no masses. EXTREMITIES: 2+ pulses, warm, well-perfused, no edema. NEUROLOGICAL: Cranial nerves II through XII grossly intact. Normal speech, gait not observed. PSYCH: Normal mood, normal affect. SKIN: Warm, dry, normal turgor, no rashes or lesions noted CBCD WBC 12.0 K/mm3 (4.0-10.0) H 04/17/19 11:59 RBC 4.87 M/mm3 (4.00-5.60) 04/17/19 11:59 Hgb 13.8 GM/dL (11.7-16.9) 04/17/19 11:59 Hct 41.7 % (35.4-49) 04/17/19 11:59 MCV 85.6 fl (80-96) 04/17/19 11:59 MCHC 33.0 g/dl (32.0-35.9) 04/17/19 11:59 RDW 15.0 % (11.9-15.9) 04/17/19 11:59 Plt Count 304 K/MM3 (134-434) 04/17/19 11:59 MPV 9.9 fl (7.5-11.1) 04/17/19 11:59 CMP Sodium 141 mmol/L (136-145) 04/17/19 14:30 Potassium 4.0 mmol/L (3.5-5.1) 04/17/19 14:30 Chloride 113 mmol/L (98-107) H 04/17/19 14:30 Carbon Dioxide 20 mmol/L (21-32) L 04/17/19 14:30 Anion Gap 9 MMOL/L (8-16) 04/17/19 14:30 BUN 24.4 mg/dL (7-18) H 04/17/19 14:30 Creatinine 1.3 mg/dL (0.55-1.3) 04/17/19 14:30 Random Glucose 151 mg/dL (74-106) H 04/17/19 14:30 Calcium 8.0 mg/dL (8.5-10.1) L 04/17/19 14:30 Total Bilirubin 0.9 mg/dL (0.2-1) 04/17/19 14:30 AST 9 U/L (15-37) L 04/17/19 14:30 ALT 17 U/L (13-61) 04/17/19 14:30 Alkaline Phosphatase 84 U/L (45-117) 04/17/19 14:30 Total Protein 6.0 g/dl (6.4-8.2) L 04/17/19 14:30 Albumin 3.1 g/dl (3.4-5.0) L 04/17/19 14:30 CARDIAC ENZYMES Troponin I < 0.02 ng/ml (0.00-0.05) 04/17/19 11:59 Home Medications Medication Instructions Recorded metFORMIN HCL [Metformin HCl] 1,000 mg PO BID 05/28/15 Aspirin [ASA -] 81 mg PO DAILY #30 tab.chew 01/17/17 Atorvastatin Ca [Lipitor] 40 mg PO HS #30 tablet 01/17/17 Losartan Potassium [Cozaar -] 50 mg PO DAILY 09/21/17 Sitagliptin Phosphate [Januvia] 100 mg PO DAILY 09/21/17 Current Medications Generic Name Dose Route Start Last Admin Trade Name Freq PRN Reason Stop Dose Admin Heparin Sodium (Porcine) 5,000 unit 04/17/19 22:00 Heparin - SQ TID ROSELINE Sodium Chloride 1,000 mls @ 100 mls/hr 04/17/19 16:45 04/17/19 16:38 Normal Saline - IV 100 mls/hr ASDIR ROSELINE Administration Insulin Aspart 1 vial 04/17/19 22:00 Novolog Vial Sliding Scale - SQ ACHS ROSELINE Protocol Ondansetron HCl 4 mg 04/17/19 18:00 Zofran Injection IVPUSH Q6H PRN NAUSEA EKG: sinus tachycardia, possible left atrial enlargement, rate 118, QTc 462 CXR: Thorocotomy, no acute pathology ASSESSMENT AND PLAN: Patient is a 58yom with PMHx of triple bypass in 2018, HTN, DM, kidney stones, presented today for having nausea and vomiting x3 with no diarrhea. # Fever with nausea or vomiting , s/p vanco and zosyn, IVf at 100cc/hr x 1 liter. monitor without antibiotics, most likely Viral in nature. #Hx of Cabg on aspirin continue #Hx of HLD continue lipitor continue #Hx of T2DM SS with coverage #ARF due to dehydration continue and monitor if stable in am possible dc. DVt px: Heparin sq
[2019-04-17 16:12] LABS: EPI CELLS 0.9 /HPF (0-5/HPF); HYALINE CASTS 9 /lpf (0-8); URINE APPEARANCE CLEAR; URINE BACTERIA 0.5 /hpf (NEGATIVE); URINE BILIRUBIN NEGATIVE (NEGATIVE); URINE COLOR YELLOW; URINE GLUCOSE (UA) TRACE (NEGATIVE); URINE KETONE NEGATIVE (NEGATIVE); URINE LEUK ESTERASE NEGATIVE (NEGATIVE); URINE NITRITE NEGATIVE (NEGATIVE); URINE PROTEIN 2+ (NEGATIVE); URINE RBC 3 /hpf (0-4); URINE UROBILINOGEN 0.2 mg/dL (0.2-1.0); URINE WBC 1 /hpf (0-5)
--- NOTE | 2019-04-17 16:41 | HP ---
CHIEF COMPLAINT: Nausea and vomiting PCP: Dr. Mahsa Gomez HISTORY OF PRESENT ILLNESS: Pt. is a 58 y.o. M w/ PMHx. of CAD(s/p 3 vessel CABG in 2018), NIDDM(Ddx. 15 years ago), HTN, BPH, GERD, and Hx. of renal stones presents for sudden onset of NBNB emesis since last night. Pt. states he vomited 3 times and had associated Tmax to 102 degrees. Pt. states that he did not have anything to eat that was unusual and that his and son who live with him had the exact same meal without complication. Pt. endorses generalized weakness ever since the CABG but states it has not gotten any worse recently. Pt. denies recent antibiotic use. Pt. denies any abdominal pain, dysuria, hematuria, diarrhea, constipation, chest pain, or hematochezia. ER course was notable for: (1) BCx. UCx. Vanc/ Zosyn, Zofran, NS x2.5L (2) (3) Recent Travel: No PAST MEDICAL HISTORY: As above PAST SURGICAL HISTORY: CABG x 3, Appendectomy, kidney stone removal Social History: Smoking: Denies Alcohol: Denies Drugs: Denies Allergies morphine Allergy (Verified 04/17/19 10:46) HOME MEDICATIONS: Home Medications Medication Instructions Recorded metFORMIN HCL [Metformin HCl] 1,000 mg PO BID 05/28/15 Aspirin [ASA -] 81 mg PO DAILY #30 tab.chew 01/17/17 Atorvastatin Ca [Lipitor] 40 mg PO HS #30 tablet 01/17/17 Losartan Potassium [Cozaar -] 50 mg PO DAILY 09/21/17 Dulaglutide [Trulicity] 1.5 mg SQ WEEKLY 04/17/19 Metoprolol Tartrate [Lopressor] 100 mg PO BID 04/17/19 Oxybutynin Chloride 5 mg PO DAILY 04/17/19 Ranitidine HCl 300 mg PO DAILY 04/17/19 Tamsulosin HCl 0.4 mg PO DAILY 04/17/19 REVIEW OF SYSTEMS As above PHYSICAL EXAMINATION Vital Signs - 24 hr 04/17/19 04/17/19 04/17/19 10:49 12:05 12:15 Temperature 98 F Pulse Rate 114 H Pulse Rate [ 111 H 114 H Radial] Respiratory 20 20 20 Rate Blood Pressure 121/67 Blood Pressure 137/78 136/76 [Left Arm] O2 Sat by Pulse 98 98 98 Oximetry (%) 04/17/19 13:00 Temperature 100.6 F H Pulse Rate Pulse Rate [ Radial] Respiratory Rate Blood Pressure Blood Pressure [Left Arm] O2 Sat by Pulse Oximetry (%) GENERAL: Awake, alert, and fully oriented, in no acute distress. HEAD: Normal with no signs of trauma. EYES: Sclera anicteric, conjunctiva clear. EARS, NOSE, THROAT: Ears normal, nares patent, oropharynx clear without exudates. Moist mucous membranes. LUNGS: Breath sounds equal, clear to auscultation bilaterally. No wheezes, and no crackles. No accessory muscle use. HEART: Regular rate and rhythm, normal S1 and S2 without murmur, rub or gallop. ABDOMEN: Soft, nontender, not distended, normoactive bowel sounds, no guarding, no rebound, no masses. No hepatomegaly or splenomegaly. MUSCULOSKELETAL: No CVA tenderness. UPPER EXTREMITIES: 2+ radial pulses, warm, well-perfused. No cyanosis. No clubbing. No peripheral edema. LOWER EXTREMITIES: 2+ dorsal pedal pulses, warm, well-perfused. No calf tenderness. No peripheral edema. NEUROLOGICAL: Normal speech. Gait not assesed PSYCHIATRIC: Cooperative. Good eye contact. Appropriate mood and affect. SKIN: Warm, dry, normal turgor, no rashes or lesions noted, normal capillary refill. Laboratory Results - last 24 hr 04/17/19 04/17/19 04/17/19 11:59 11:59 11:59 WBC RBC Hgb Hct MCV MCH MCHC RDW Plt Count MPV Absolute Neuts (auto) Neutrophils % Neutrophils % (Manual) Band Neutrophils % Lymphocytes % Lymphocytes % (Manual) Monocytes % Monocytes % (Manual) Eosinophils % Eosinophils % (Manual) Basophils % Basophils % (Manual) Myelocytes % (Man) Promyelocytes % (Man) Blast Cells % (Manual) Nucleated RBC % Metamyelocytes Hypochromia Platelet Estimate Polychromasia Poikilocytosis Anisocytosis Microcytosis Macrocytosis Spherocytes Tear Drop Cells Ovalocytes Regina Cells PT with INR 14.20 H INR 1.20 H PTT (Actin FS) 34.7 VBG pH POC VBG pCO2 POC VBG pO2 VBG HCO3 VBG O2 Sat (Tina) VBG Base Excess Sodium Potassium Chloride Carbon Dioxide Anion Gap BUN Creatinine Est GFR (CKD-EPI)AfAm Est GFR (CKD-EPI)NonAf Random Glucose Lactic Acid Calcium Magnesium Total Bilirubin AST ALT Alkaline Phosphatase Troponin I < 0.02 Total Protein Albumin Lipase Urine Color Urine Appearance Urine pH Ur Specific [place] Urine Protein Urine Glucose (UA) Urine Ketones Urine Blood Urine Nitrite Urine Bilirubin Urine Urobilinogen Ur Leukocyte Esterase Urine WBC (Auto) Urine RBC (Auto) Urine Casts (Auto) U Epithel Cells (Auto) Urine Bacteria (Auto) Influenza A (Rapid) Negative Influenza B (Rapid) Negative 04/17/19 04/17/19 04/17/19 11:59 11:59 11:59 WBC 12.0 H RBC 4.87 Hgb 13.8 Hct 41.7 MCV 85.6 MCH 28.3 MCHC 33.0 RDW 15.0 Plt Count 304 MPV 9.9 Absolute Neuts (auto) 10.9 H Neutrophils % 91.0 H D Neutrophils % (Manual) 90.0 H Band Neutrophils % 4.0 Lymphocytes % 4.7 L D Lymphocytes % (Manual) 2.0 L Monocytes % 3.4 L Monocytes % (Manual) 1 L Eosinophils % 0.4 D Eosinophils % (Manual) 0.0 Basophils % 0.5 Basophils % (Manual) 0.0 Myelocytes % (Man) 0 Promyelocytes % (Man) 0 Blast Cells % (Manual) 0 Nucleated RBC % 0 Metamyelocytes 0 Hypochromia 0 Platelet Estimate Normal Polychromasia 0 Poikilocytosis 1+ Anisocytosis 1+ Microcytosis 1+ Macrocytosis 0 Spherocytes 1+ Tear Drop Cells 1+ Ovalocytes 1+ Keely Cells 1+ PT with INR INR PTT (Actin FS) VBG pH POC VBG pCO2 POC VBG pO2 VBG HCO3 VBG O2 Sat (Tina) VBG Base Excess Sodium 139 Potassium 4.9 Chloride 108 H Carbon Dioxide 20 L Anion Gap 11 BUN 27.9 H Creatinine 1.5 H Est GFR (CKD-EPI)AfAm 57.82 Est GFR (CKD-EPI)NonAf 49.88 Random Glucose 235 H Lactic Acid 2.4 H* Calcium 8.6 Magnesium 1.6 L Total Bilirubin 1.2 H AST 15 ALT 20 Alkaline Phosphatase 99 Troponin I Total Protein 6.9 Albumin 3.6 Lipase 87 Urine Color Urine Appearance Urine pH Ur Specific [place] Urine Protein Urine Glucose (UA) Urine Ketones Urine Blood Urine Nitrite Urine Bilirubin Urine Urobilinogen Ur Leukocyte Esterase Urine WBC (Auto) Urine RBC (Auto) Urine Casts (Auto) U Epithel Cells (Auto) Urine Bacteria (Auto) Influenza A (Rapid) Influenza B (Rapid) 04/17/19 04/17/19 04/17/19 11:59 14:30 14:30 WBC RBC Hgb Hct MCV MCH MCHC RDW Plt Count MPV Absolute Neuts (auto) Neutrophils % Neutrophils % (Manual) Band Neutrophils % Lymphocytes % Lymphocytes % (Manual) Monocytes % Monocytes % (Manual) Eosinophils % Eosinophils % (Manual) Basophils % Basophils % (Manual) Myelocytes % (Man) Promyelocytes % (Man) Blast Cells % (Manual) Nucleated RBC % Metamyelocytes Hypochromia Platelet Estimate Polychromasia Poikilocytosis Anisocytosis Microcytosis Macrocytosis Spherocytes Tear Drop Cells Ovalocytes Regina Cells PT with INR INR PTT (Actin FS) VBG pH 7.34 POC VBG pCO2 42.1 POC VBG pO2 < 49 H VBG HCO3 21.9 L VBG O2 Sat (Tina) 74.4 VBG Base Excess -3.3 L Sodium 141 Potassium 4.0 Chloride 113 H Carbon Dioxide 20 L Anion Gap 9 BUN 24.4 H Creatinine 1.3 Est GFR (CKD-EPI)AfAm 68.74 Est GFR (CKD-EPI)NonAf 59.31 Random Glucose 151 H Lactic Acid Calcium 8.0 L Magnesium Total Bilirubin 0.9 AST 9 L ALT 17 Alkaline Phosphatase 84 Troponin I Total Protein 6.0 L Albumin 3.1 L Lipase Urine Color Yellow Urine Appearance Clear Urine pH 5.0 Ur Specific [place] 1.022 Urine Protein 2+ H Urine Glucose (UA) Trace Urine Ketones Negative Urine Blood Negative Urine Nitrite Negative Urine Bilirubin Negative Urine Urobilinogen 0.2 Ur Leukocyte Esterase Negative Urine WBC (Auto) 1 Urine RBC (Auto) 3 Urine Casts (Auto) 9 U Epithel Cells (Auto) 0.9 Urine Bacteria (Auto) 0.5 Influenza A (Rapid) Influenza B (Rapid) 04/17/19 14:30 WBC RBC Hgb Hct MCV MCH MCHC RDW Plt Count MPV Absolute Neuts (auto) Neutrophils % Neutrophils % (Manual) Band Neutrophils % Lymphocytes % Lymphocytes % (Manual) Monocytes % Monocytes % (Manual) Eosinophils % Eosinophils % (Manual) Basophils % Basophils % (Manual) Myelocytes % (Man) Promyelocytes % (Man) Blast Cells % (Manual) Nucleated RBC % Metamyelocytes Hypochromia Platelet Estimate Polychromasia Poikilocytosis Anisocytosis Microcytosis Macrocytosis Spherocytes Tear Drop Cells Ovalocytes Regina Cells PT with INR INR PTT (Actin FS) VBG pH POC VBG pCO2 POC VBG pO2 VBG HCO3 VBG O2 Sat (Tina) VBG Base Excess Sodium Potassium Chloride Carbon Dioxide Anion Gap BUN Creatinine Est GFR (CKD-EPI)AfAm Est GFR (CKD-EPI)NonAf Random Glucose Lactic Acid Calcium Magnesium Total Bilirubin AST ALT Alkaline Phosphatase Troponin I Total Protein Albumin Lipase 98 Urine Color Urine Appearance Urine pH Ur Specific [place] Urine Protein Urine Glucose (UA) Urine Ketones Urine Blood Urine Nitrite Urine Bilirubin Urine Urobilinogen Ur Leukocyte Esterase Urine WBC (Auto) Urine RBC (Auto) Urine Casts (Auto) U Epithel Cells (Auto) Urine Bacteria (Auto) Influenza A (Rapid) Influenza B (Rapid) ASSESSMENT/PLAN: Pt. is a 58 y.o. M w/ PMHx. of CAD(s/p 3 vessel CABG in 2018), NIDDM(Ddx. 15 years ago), HTN, BPH, GERD, and Hx. of renal stones presents for sudden onset of NBNB emesis since last night. #Nausea and Vomiting likely secondary to viral gastroenteritis as CXR negative(no URI symptoms), negative UA, no abdominal pain, no skin lesions, non-toxic appearing elevated WBC with 90% Neutrophils Temperature to 100.6, given Vanc and Zosyn in ED, will monitor OFF Abx. LA: 2.4, f/u repeat IVF Zofran PRN w/ EKG parameters #CAD #HTN #NIDDM #BPH #GERD c/w home medications 2+ protiein in urine. Pt. should follow up with PCP to test for microalbuminuria given duration of Diabetes diagnosis. Pt. continues to have elevated BP, perhaps intensification of TADEO/ARB may be warranted. #FEN NS@ 100 monitor electrolytes and replete as needed; repleted Mg f/u BMP in AM Na/Diabetic Diet #DVT Ppx Hep SQ Visit type - Emergency Visit Emergency Visit: Yes ED Registration Date: 04/17/19 Care time: The patient presented to the Emergency Department on the above date and was hospitalized for further evaluation of their emergent condition. - New Patient This patient is new to me today: Yes Date on this admission: 04/17/19 - Critical Care Critical Care patient: No ATTENDING PHYSICIAN STATEMENT I saw and evaluated the patient. I reviewed the resident's note and discussed the case with the resident. I agree with the resident's findings and plan as documented. SUBJECTIVE: OBJECTIVE: ASSESSMENT AND PLAN:
[2019-04-17] MEDS ORDERED: SODIUM CHLORIDE 1,000 ML IV SCH ×2 (16:45→21:30)
[2019-04-17] MEDS ORDERED: MAGNESIUM SULF 50% (8.12 MEQ/2 ML-1 GM VIAL) IVPB ONE (16:55)
[2019-04-17] MEDS ORDERED: MAGNESIUM 1GM/D5W - 1 GM/100 ML IVPB IVPB ONE (17:04)
[2019-04-17] MEDS ORDERED: ONDANSETRON 4 MG/2 ML VIAL IVPUSH PRN (18:00)
[2019-04-17] MEDS: INSULIN SLIDING SCALE (NOVOLOG) 1 VIAL SQ SCH (23:19)
[2019-04-17] MEDS: HEPARIN NA (PORCINE) 5,000 UNITS/ML 1ML VIAL SQ SCH (23:27)
[2019-04-17] MEDS: METOPROLOL TARTRATE 50 MG TABLET (FP) PO SCH (23:28)
[2019-04-17] MEDS: ATORVASTATIN CA 40 MG TABLET (FP) PO SCH (23:28)
[2019-04-18] MEDS: INSULIN SLIDING SCALE (NOVOLOG) 1 VIAL SQ SCH ×4 (06:44→22:01)
[2019-04-18] MEDS: HEPARIN NA (PORCINE) 5,000 UNITS/ML 1ML VIAL SQ SCH ×3 (06:44→22:01)
[2019-04-18 09:10] LABS: BASO % 0.2 % (0-2.0); EOS % 2.4 % (0-4.5); HEMATOCRIT 35.1 % (35.4-49); HEMOGLOBIN 11.8 GM/dL (11.7-16.9); LYMPH % 14.3 % (8-40); MCH 28.5 pg (25.7-33.7); MCHC 33.7 g/dl (32.0-35.9); MEAN CELL VOLUME 84.6 fl (80-96); MEAN PLT VOLUME 9.1 fl (7.5-11.1); MONO % 7.6 % (3.8-10.2); NEUT % 75.5 % (42.8-82.8); PLATELET COUNT 268 K/MM3 (134-434); RBC 4.15 M/mm3 (4.00-5.60); RDW 14.7 % (11.9-15.9)
[2019-04-18 09:46] LABS: INR 1.29 (0.83-1.09); PROTHROMBIN TIME (PATIENT) 15.3 SEC (9.7-13.0)
[2019-04-18 10:00] LABS: BILIRUBIN,TOTAL 1.1 mg/dL (0.2-1); BLOOD UREA NITROGEN 15.2 mg/dL (7-18); CALCIUM 8.2 mg/dL (8.5-10.1); CREATININE 1.3 mg/dL (0.55-1.3); MAGNESIUM 1.9 mg/dL (1.8-2.4); PHOSPHOROUS 2.8 mg/dL (2.5-4.9); TOT PROT 6.3 g/dl (6.4-8.2)
[2019-04-18] MEDS ORDERED: FLU VACCINE QUAD 60 MCG/0.5 ML (MDV 19-20) IM ONE (10:00)
[2019-04-18] MEDS: METOPROLOL TARTRATE 50 MG TABLET (FP) PO SCH ×3 (10:55→21:59)
[2019-04-18] MEDS: LOSARTAN POTASSIUM 50 MG TABLET (FP) PO SCH (10:59)
[2019-04-18] MEDS: ASPIRIN COATED 81 MG TABLET.EC PO SCH (10:59)
--- NOTE | 2019-04-18 20:06 | PN ---
Teaching Attending Note Name of Resident: Jorge Romo ATTENDING PHYSICIAN STATEMENT I saw and evaluated the patient. I reviewed the resident's note and discussed the case with the resident. I agree with the resident's findings and plan as documented. SUBJECTIVE: seen at 1 pm . no pain , no N/V . no dysuria, no abd pain . no diarrhea OBJECTIVE: NAD Cv : RRR Lungs: CTAB Abd: soft , NT, ND , NL BS Ext : No edema ASSESSMENT AND PLAN: 58 y/o man with h/o CAD s/p CABG, DM, HTN , nephrolithiasis who presented with N/V and fever 1- possible viral gastritis : no other source of fever. follow blood cx , and monitor off Abx 2- H/o CAD /HTN : cont asa and ARB and statin, and metoprolol 3- DM : cont SSI 4- SUDHIR resolved DVT PX heparin sq will dc if afebrile x 24 hr
[2019-04-18] MEDS: ACETAMINOPHEN 1000 MG/100 ML VIAL (NON FORMULARY) IVPB PRN (20:56)
[2019-04-18] MEDS: ATORVASTATIN CA 40 MG TABLET (FP) PO SCH (21:59)
--- NOTE | 2019-04-18 22:43 | PN ---
Physical Exam: SUBJECTIVE: Patient seen and examined at bedside with and son present. He was admitted overnight. At this time he offers no complaints beyond generalized tiredness. He denies NVFD, constipation or chills. He denies recent weight loss and night sweats. He denies using new meds/foods/herbs/supplements. He is currently unemployed and stays at home so occupational hazard not quantifiable. He reports his last name is Alissa and is pronounced, "anamaria." OBJECTIVE: Vital Signs Temp Pulse Resp BP Pulse Ox 100 F H 87 16 147/66 98 04/18/19 19:36 04/18/19 19:36 04/18/19 19:36 04/18/19 19:36 04/18/19 09:00 GENERAL: AOx3, in no acute distress. HEAD: NCAT EYES: DIAZ, EOMI, conjunctiva clear. ENT: Ears normal, nares patent, oropharynx clear without exudates. Moist mucous membranes. NECK: Normal range of motion, supple without lymphadenopathy, JVD, or masses. LUNGS: CTAB. No wheezes, and no crackles. No accessory muscle use. HEART: RRR s1 s2 ABDOMEN: Soft, BS present in all 4 quadrants, non-distended, no JVD, MUSCULOSKELETAL: No bony deformities or tenderness. No CVA tenderness. UPPER EXTREMITIES: 2+ pulses, warm, well-perfused. No cyanosis. No clubbing. No peripheral edema. LOWER EXTREMITIES: 2+ pulses, warm, well-perfused. No calf tenderness. No peripheral edema. NEUROLOGICAL: No focal deficits. Cranial nerves II-XII intact. Normal speech. Gait not appreciated. PSYCHIATRIC: Cooperative. Good eye contact. Appropriate mood and affect. SKIN: Warm, dry, normal turgor, no rashes or lesions noted, normal capillary refill. Laboratory Results - last 24 hr 04/17/19 04/18/19 04/18/19 23:17 06:40 08:45 WBC 8.0 RBC 4.15 Hgb 11.8 Hct 35.1 L D MCV 84.6 MCH 28.5 MCHC 33.7 RDW 14.7 Plt Count 268 MPV 9.1 Absolute Neuts (auto) 6.1 Neutrophils % 75.5 Lymphocytes % 14.3 D Monocytes % 7.6 D Eosinophils % 2.4 D Basophils % 0.2 Nucleated RBC % 0 PT with INR INR Sodium Potassium Chloride Carbon Dioxide Anion Gap BUN Creatinine Est GFR (CKD-EPI)AfAm Est GFR (CKD-EPI)NonAf POC Glucometer 113 120 Random Glucose Calcium Phosphorus Magnesium Total Bilirubin AST ALT Alkaline Phosphatase Total Protein Albumin Influenza A (Rapid) Influenza B (Rapid) 04/18/19 04/18/19 04/18/19 08:45 08:45 11:58 WBC RBC Hgb Hct MCV MCH MCHC RDW Plt Count MPV Absolute Neuts (auto) Neutrophils % Lymphocytes % Monocytes % Eosinophils % Basophils % Nucleated RBC % PT with INR 15.30 H INR 1.29 H Sodium 141 Potassium 4.0 Chloride 113 H Carbon Dioxide 22 Anion Gap 6 L BUN 15.2 Creatinine 1.3 Est GFR (CKD-EPI)AfAm 68.74 Est GFR (CKD-EPI)NonAf 59.31 POC Glucometer 139 Random Glucose 117 H Calcium 8.2 L Phosphorus 2.8 Magnesium 1.9 Total Bilirubin 1.1 H AST 13 L ALT 20 Alkaline Phosphatase 81 Total Protein 6.3 L Albumin 3.0 L Influenza A (Rapid) Influenza B (Rapid) 04/18/19 04/18/19 04/18/19 16:28 17:49 21:29 WBC RBC Hgb Hct MCV MCH MCHC RDW Plt Count MPV Absolute Neuts (auto) Neutrophils % Lymphocytes % Monocytes % Eosinophils % Basophils % Nucleated RBC % PT with INR INR Sodium Potassium Chloride Carbon Dioxide Anion Gap BUN Creatinine Est GFR (CKD-EPI)AfAm Est GFR (CKD-EPI)NonAf POC Glucometer 111 117 Random Glucose Calcium Phosphorus Magnesium Total Bilirubin AST ALT Alkaline Phosphatase Total Protein Albumin Influenza A (Rapid) Negative Influenza B (Rapid) Negative Active Medications Acetaminophen (Ofirmev Injection -) 1,000 mg IVPB Q6H PRN PRN Reason: FEVER Stop: 04/19/19 16:20 Last Admin: 04/18/19 20:56 Dose: 1,000 mg Aspirin (Ecotrin -) 81 mg PO DAILY [facility] Last Admin: 04/18/19 10:59 Dose: Not Given Atorvastatin Calcium (Lipitor -) 40 mg PO HS [facility] Last Admin: 04/18/19 21:59 Dose: 40 mg Heparin Sodium (Porcine) (Heparin -) 5,000 unit SQ TID [facility] Last Admin: 04/18/19 22:01 Dose: Not Given Insulin Aspart (Novolog Vial Sliding Scale -) 1 vial SQ [facility]; Protocol Last Admin: 04/18/19 22:01 Dose: Not Given Losartan Potassium (Cozaar -) 50 mg PO DAILY [facility] Last Admin: 04/18/19 10:59 Dose: Not Given Metoprolol Tartrate (Lopressor -) 100 mg PO BID [facility] Last Admin: 04/18/19 21:59 Dose: 100 mg ASSESSMENT/PLAN: 58 y/o male PMH HTN, DM, CAD s/p CABG, and nephrolithiasis whom c/o NVF and admitted for possible viral gastritis. # Viral syndrome - Conservative management: encourage hydration, appropriate nutrition, and antipyretics. - Fever 100.6 rectal this afternoon; will follow - Blood cx pending - Urine cx NEG - CXR NEG (sternal sutures) - Flu NEG # SUDHIR - Resolved with hydration - Cr 1.3 now # H/o CAD - Lipitor 40 mg po hs - ASA 81 mg po qd # DM - Hold home regimen - ISS ACHS # HTN - Cont. curent home regimen: Metoprolol tartrate 100 mg po BID, Losartan 50 mg po qd # HLD - Cont. curent home regimen # F/E/N - PO - Cont. to monitor - Low sodium, diabetic diet # DVT prophylaxis - Heparin SQ # Disposition - Med/surg Jorge Romo MD Visit type - Emergency Visit Emergency Visit: No - New Patient This patient is new to me today: Yes Date on this admission: 04/18/19 - Critical Care Critical Care patient: No ATTENDING PHYSICIAN STATEMENT I saw and evaluated the patient. I reviewed the resident's note and discussed the case with the resident. I agree with the resident's findings and plan as documented. SUBJECTIVE: OBJECTIVE: ASSESSMENT AND PLAN:
[2019-04-19] MEDS: ACETAMINOPHEN 1000 MG/100 ML VIAL (NON FORMULARY) IVPB PRN ×2 (04:35→14:29)
[2019-04-19] MEDS: HEPARIN NA (PORCINE) 5,000 UNITS/ML 1ML VIAL SQ SCH ×3 (05:53→22:33)
[2019-04-19] MEDS: INSULIN SLIDING SCALE (NOVOLOG) 1 VIAL SQ SCH ×4 (06:37→22:33)
[2019-04-19 09:00] LABS: BLOOD UREA NITROGEN 14.6 mg/dL (7-18); CALCIUM 8.7 mg/dL (8.5-10.1); CREATININE 1.3 mg/dL (0.55-1.3); POTASSIUM 3.9 mmol/L (3.5-5.1)
[2019-04-19] MEDS: METOPROLOL TARTRATE 50 MG TABLET (FP) PO SCH ×2 (09:11→22:33)
[2019-04-19] MEDS: ASPIRIN COATED 81 MG TABLET.EC PO SCH (09:11)
[2019-04-19] MEDS: LOSARTAN POTASSIUM 50 MG TABLET (FP) PO SCH (09:11)
[2019-04-19] MEDS: TAMSULOSIN HCL 0.4 MG CAP PO SCH (09:11)
[2019-04-19] MEDS: SODIUM CHLORIDE 1,000 ML IV SCH (12:17)
--- NOTE | 2019-04-19 12:43 | PN ---
Physical Exam: SUBJECTIVE: Patient seen and examined at bedside. There were no acute events overnight. This AM he offers no new complaints. OBJECTIVE: Vital Signs Temp Pulse Resp BP Pulse Ox 103.2 F H 84 18 143/66 96 04/19/19 14:30 04/19/19 15:00 04/19/19 15:00 04/19/19 15:00 04/18/19 21:00 GENERAL: AOx3, in no acute distress. HEAD: NCAT EYES: DIAZ, EOMI, conjunctiva clear. ENT: Ears normal, nares patent, oropharynx clear without exudates. Moist mucous membranes. NECK: Normal range of motion, supple without lymphadenopathy, JVD, or masses. LUNGS: CTAB. No wheezes, and no crackles. No accessory muscle use. HEART: RRR s1 s2 ABDOMEN: Soft, BS present in all 4 quadrants, non-distended, no JVD, MUSCULOSKELETAL: No bony deformities or tenderness. No CVA tenderness. UPPER EXTREMITIES: 2+ pulses, warm, well-perfused. No cyanosis. No clubbing. No peripheral edema. LOWER EXTREMITIES: 2+ pulses, warm, well-perfused. No calf tenderness. No peripheral edema. NEUROLOGICAL: No focal deficits. Cranial nerves II-XII intact. Normal speech. Gait not appreciated. PSYCHIATRIC: Cooperative. Good eye contact. Appropriate mood and affect. SKIN: Warm, dry, normal turgor, no rashes or lesions noted, normal capillary refill. Laboratory Results - last 24 hr 04/18/19 04/18/19 04/18/19 16:28 17:49 21:29 Sodium Potassium Chloride Carbon Dioxide Anion Gap BUN Creatinine Est GFR (CKD-EPI)AfAm Est GFR (CKD-EPI)NonAf POC Glucometer 111 117 Random Glucose Calcium Influenza A (Rapid) Negative Influenza B (Rapid) Negative 04/19/19 04/19/19 04/19/19 05:50 07:54 12:15 Sodium 137 Potassium 3.9 Chloride 107 Carbon Dioxide 23 Anion Gap 7 L BUN 14.6 Creatinine 1.3 Est GFR (CKD-EPI)AfAm 68.74 Est GFR (CKD-EPI)NonAf 59.31 POC Glucometer 128 150 Random Glucose 113 H Calcium 8.7 Influenza A (Rapid) Influenza B (Rapid) Active Medications Aspirin (Ecotrin -) 81 mg PO DAILY [facility] Last Admin: 04/19/19 09:11 Dose: 81 mg Atorvastatin Calcium (Lipitor -) 40 mg PO HS [facility] Last Admin: 04/18/19 21:59 Dose: 40 mg Heparin Sodium (Porcine) (Heparin -) 5,000 unit SQ TID [facility] Last Admin: 04/19/19 15:09 Dose: Not Given Sodium Chloride (Normal Saline -) 1,000 mls @ 75 mls/hr IV ASDIR [facility] Last Admin: 04/19/19 12:17 Dose: 75 mls/hr Insulin Aspart (Novolog Vial Sliding Scale -) 1 vial SQ ACHS [facility]; Protocol Last Admin: 04/19/19 18:27 Dose: Not Given Losartan Potassium (Cozaar -) 50 mg PO DAILY [facility] Last Admin: 04/19/19 09:11 Dose: 50 mg Metoprolol Tartrate (Lopressor -) 100 mg PO BID [facility] Last Admin: 04/19/19 09:11 Dose: 100 mg Tamsulosin HCl (Flomax -) 0.4 mg PO DAILY@0830 [facility] Last Admin: 04/19/19 09:11 Dose: 0.4 mg ASSESSMENT/PLAN: 58 y/o male PMH HTN, DM, CAD s/p CABG, and nephrolithiasis whom c/o NVF and admitted for possible viral gastritis. # Viral syndrome - Conservative management: encourage hydration, appropriate nutrition, and antipyretics. - Fever 103.2 rectal this afternoon; will follow - Cont. off abx - F/u cultures # H/o CAD - Lipitor 40 mg po hs - ASA 81 mg po qd # HTN - Cont. curent home regimen: Metoprolol tartrate 100 mg po BID, Losartan 50 mg po qd - If it continues to be elevated, consider increasing losartan # F/E/N - PO - Cont. to monitor - Low sodium, diabetic diet # DVT prophylaxis - Heparin SQ # Disposition - Med/surg Jorge Romo MD Visit type - Emergency Visit Emergency Visit: No - New Patient This patient is new to me today: No - Critical Care Critical Care patient: No - Discharge Referral Referred to [facility] No ATTENDING PHYSICIAN STATEMENT I saw and evaluated the patient. I reviewed the resident's note and discussed the case with the resident. I agree with the resident's findings and plan as documented. SUBJECTIVE: OBJECTIVE: ASSESSMENT AND PLAN:
--- NOTE | 2019-04-19 13:02 | CON.ID ---
Consult Consult Specialty:: infectious diseases Referred by:: Reason for Consultation:: fever,weakness - History of Present Illness Chief Complaint: fever,weakness History of Present Illness: 58 y/o male with PMH significant for triple bypass in 2018, HTN, DM, kidney stones, presenting today with nausea and vomiting x3 and fever . Denies chest pain. Denies shortness of breath. Denies abdominal pain. Denies diarrhea. Denies dysuria. Denies headache. Denies muscle aches. according to the patient he has been very weak for quite some time currently he feels very weak and cannot walk even a little bit without getting tired in the room patient mentions that post bypass surgery he developed a infection on his sternum and had to be treated for a month with abx spiked as high as 102 - History Source History Provided By: Patient Limitations to Obtaining History: No Limitations - Past Medical History Cardio/Vascular: Yes: HTN Endocrine: Yes: Diabetes Mellitus - Past Surgical History Past Surgical History: Yes: Appendectomy - Alcohol/Substance Use Hx Alcohol Use: No History of Substance Use: reports: None - Smoking History Smoking history: Unknown if ever smoked Have you smoked in the past 12 months: No - Social History ADL: Independent History of Recent Travel: No Home Medications - Allergies Allergies/Adverse Reactions: Allergies Allergy/AdvReac Type Severity Reaction Status Date / Time morphine Allergy Verified 04/17/19 10:46 - Home Medications Home Medications: Ambulatory Orders metFORMIN HCL [Metformin HCl] 1,000 mg PO BID 05/28/15 Aspirin [ASA -] 81 mg PO DAILY #30 tab.chew 01/17/17 Atorvastatin Ca [Lipitor] 40 mg PO HS #30 tablet 01/17/17 Losartan Potassium [Cozaar -] 50 mg PO DAILY 09/21/17 Dulaglutide [Trulicity] 1.5 mg SQ WEEKLY 04/17/19 Metoprolol Tartrate [Lopressor] 100 mg PO BID 04/17/19 Oxybutynin Chloride 5 mg PO DAILY 04/17/19 Ranitidine HCl 300 mg PO HS 04/17/19 Tamsulosin HCl 0.4 mg PO DAILY 04/17/19 Review of Systems - Review of Systems Constitutional: reports: Fever, Weakness Eyes: reports: No Symptoms HENT: reports: No Symptoms Neck: reports: No Symptoms Cardiovascular: reports: No Symptoms Respiratory: reports: No Symptoms Gastrointestinal: reports: No Symptoms Musculoskeletal: reports: No Symptoms Integumentary: reports: No Symptoms Neurological: reports: No Symptoms Endocrine: reports: No Symptoms Hematology/Lymphatic: reports: No Symptoms Psychiatric: reports: No Symptoms Physical Exam Vital Signs: Vital Signs Temperature 99.7 F H 04/19/19 05:57 Pulse Rate 107 H 04/19/19 05:57 Respiratory Rate 18 04/19/19 05:57 Blood Pressure 153/77 04/19/19 05:57 O2 Sat by Pulse Oximetry (%) 96 04/18/19 21:00 Constitutional: Yes: Calm, Other Eyes: Yes: Conjunctiva Clear HENT: Yes: Atraumatic, Normocephalic Neck: Yes: Supple, Trachea Midline Cardiovascular: Yes: Regular Rate and Rhythm Respiratory: Yes: Regular, CTA Bilaterally Gastrointestinal: Yes: Normal Bowel Sounds, Soft Musculoskeletal: Yes: WNL Extremities: Yes: WNL Neurological: Yes: Alert, Oriented Psychiatric: Yes: Alert, Oriented Labs: CBC, BMP 04/18/19 08:45 04/19/19 07:54 Imaging - Results Chest X-ray: Report Reviewed, Image Reviewed Assessment/Plan Pt. is a 58 y.o. M w/ PMHx. of CAD(s/p 3 vessel CABG in 2018), NIDDM(Ddx. 15 years ago), HTN, BPH, GERD, and Hx. of renal stones presents for sudden onset of vomiting i agree with holding off the abx at this time await for all cx reports will get a parasite exam done close watch on fever cycles will d/w the team
--- NOTE | 2019-04-19 14:18 | PN ---
Teaching Attending Note Name of Resident: Jorge Romo ATTENDING PHYSICIAN STATEMENT I saw and evaluated the patient. I reviewed the resident's note and discussed the case with the resident. I agree with the resident's findings and plan as documented. SUBJECTIVE: Cont to have fever . no vomiting but has poor appetite. No diarrhea , no dysuria , no cough. OBJECTIVE: NAD Cv: RRR Lungs: CTAB Abd: soft , NT, ND , NL BS Ext: No edema ASSESSMENT AND PLAN: 58 y/o man with h/o CAD s/p CABG, DM, HTN , nephrolithiasis who presented with N/V and fever 1- Fever: unknown source. still no focus on exam and no symptoms. ? viral gastritis - ID consult appreciated. hold off Abx - parasite smear was sent - blood cx was repeated last night. follow 2- H/o CAD /HTN : cont asa and ARB and statin, and metoprolol 3- DM : cont SSI 4- SUDHIR resolved DVT PX heparin sq
[2019-04-19] MEDS: ATORVASTATIN CA 40 MG TABLET (FP) PO SCH (22:33)
[2019-04-20] MEDS: SODIUM CHLORIDE 1,000 ML IV SCH ×3 (01:14→17:43)
[2019-04-20] MEDS: HEPARIN NA (PORCINE) 5,000 UNITS/ML 1ML VIAL SQ SCH ×3 (06:52→21:31)
[2019-04-20] MEDS: INSULIN SLIDING SCALE (NOVOLOG) 1 VIAL SQ SCH ×4 (06:53→21:31)
[2019-04-20 08:33] LABS: HEMATOCRIT 36.8 % (35.4-49); HEMOGLOBIN 12.6 GM/dL (11.7-16.9); MCHC 34.3 g/dl (32.0-35.9); MEAN CELL VOLUME 84.6 fl (80-96); MEAN PLT VOLUME 9.7 fl (7.5-11.1); PLATELET COUNT 301 K/MM3 (134-434); RBC 4.34 M/mm3 (4.00-5.60); RDW 14.5 % (11.9-15.9)
[2019-04-20 09:03] LABS: ALBUMIN 2.9 g/dl (3.4-5.0); BILIRUBIN,TOTAL 1.2 mg/dL (0.2-1); BLOOD UREA NITROGEN 14.6 mg/dL (7-18); CALCIUM 8.5 mg/dL (8.5-10.1); CREATININE 1.3 mg/dL (0.55-1.3); POTASSIUM 3.9 mmol/L (3.5-5.1); TOT PROT 6.6 g/dl (6.4-8.2)
[2019-04-20] MEDS: TAMSULOSIN HCL 0.4 MG CAP PO SCH (09:20)
[2019-04-20] MEDS ORDERED: INSULIN (NOVOLOG) ASPART 100 UNITS/ML 10ML VIAL ONE (10:51)
[2019-04-20] MEDS: METOPROLOL TARTRATE 50 MG TABLET (FP) PO SCH ×2 (10:59→21:30)
[2019-04-20] MEDS: ASPIRIN COATED 81 MG TABLET.EC PO SCH (11:00)
[2019-04-20] MEDS: LOSARTAN POTASSIUM 50 MG TABLET (FP) PO SCH (11:00)
--- NOTE | 2019-04-20 13:26 | PN ---
Progress Note, Physician History of Present Illness: starting to feel better no new issues - Current Medication List Current Medications: Active Medications Aspirin (Ecotrin -) 81 mg PO DAILY [facility] Last Admin: 04/20/19 11:00 Dose: 81 mg Atorvastatin Calcium (Lipitor -) 40 mg PO HS [facility] Last Admin: 04/19/19 22:33 Dose: 40 mg Heparin Sodium (Porcine) (Heparin -) 5,000 unit SQ TID [facility] Last Admin: 04/20/19 06:52 Dose: Not Given Sodium Chloride (Normal Saline -) 1,000 mls @ 75 mls/hr IV ASDIR [facility] Last Admin: 04/20/19 11:24 Dose: Not Given Insulin Aspart (Novolog Vial Sliding Scale -) 1 vial SQ ACHS [facility]; Protocol Last Admin: 04/20/19 11:14 Dose: Not Given Losartan Potassium (Cozaar -) 50 mg PO DAILY [facility] Last Admin: 04/20/19 11:00 Dose: 50 mg Metoprolol Tartrate (Lopressor -) 100 mg PO BID [facility] Last Admin: 04/20/19 10:59 Dose: 100 mg Tamsulosin HCl (Flomax -) 0.4 mg PO DAILY@0830 [facility] Last Admin: 04/20/19 09:20 Dose: 0.4 mg - Objective Vital Signs: Vital Signs Temperature 98.7 F 04/20/19 10:00 Pulse Rate 76 04/20/19 10:00 Respiratory Rate 18 04/20/19 10:00 Blood Pressure 153/86 04/20/19 10:00 O2 Sat by Pulse Oximetry (%) 96 04/19/19 21:00 Constitutional: Yes: No Distress, Calm Cardiovascular: Yes: S1, S2 Respiratory: Yes: Regular, CTA Bilaterally Gastrointestinal: Yes: Normal Bowel Sounds, Soft Musculoskeletal: Yes: WNL Extremities: Yes: WNL Neurological: Yes: Alert, Oriented Psychiatric: Yes: Alert, Oriented Labs: CBC, BMP 04/20/19 07:22 04/20/19 07:22 INR, PTT INR 1.29 (0.83-1.09) H 04/18/19 08:45 Assessment/Plan 58 y/o man with h/o CAD s/p CABG, DM, HTN , nephrolithiasis who presented with N/V and fever 1- Fever: unknown source. 2- CAD /HTN 3- DM 4- SUDHIR resolved plan continue to monitor nutrition rest as per the team
[2019-04-20] MEDS ORDERED: LOSARTAN POTASSIUM 50 MG TABLET (FP) PO ONE (13:41)
--- NOTE | 2019-04-20 16:57 | PN ---
Physical Exam: SUBJECTIVE: Patient seen and examined at bedside. Overnight he was afebrile w T max 100.2. This AM he says he feels like his is improving but continues to to have malaise. He also endorses a new finding of x2 diarrhea, with bubbles, nbnm. He denies fevers, chills, wt loss, night sweats. OBJECTIVE: Vital Signs Temp Pulse Resp BP Pulse Ox 98.6 F 68 18 141/71 98 04/20/19 16:06 04/20/19 16:06 04/20/19 16:06 04/20/19 16:04/20/19 09:00 GENERAL: AOx3, in no acute distress. HEAD: NCAT EYES: DIAZ, EOMI, conjunctiva clear. ENT: Ears normal, nares patent, oropharynx clear without exudates. Moist mucous membranes. NECK: Normal range of motion, supple without lymphadenopathy, JVD, or masses. LUNGS: CTAB. No wheezes, and no crackles. No accessory muscle use. HEART: RRR s1 s2 ABDOMEN: Soft, BS present in all 4 quadrants, non-distended, no JVD, MUSCULOSKELETAL: No bony deformities or tenderness. No CVA tenderness. UPPER EXTREMITIES: 2+ pulses, warm, well-perfused. No cyanosis. No clubbing. No peripheral edema. LOWER EXTREMITIES: 2+ pulses, warm, well-perfused. No calf tenderness. No peripheral edema. NEUROLOGICAL: No focal deficits. Cranial nerves II-XII intact. Normal speech. Gait not appreciated. PSYCHIATRIC: Cooperative. Good eye contact. Appropriate mood and affect. SKIN: Warm, dry, normal turgor, no rashes or lesions noted, normal capillary refill. Laboratory Results - last 24 hr 04/19/19 04/19/19 04/20/19 18:24 21:48 06:36 WBC RBC Hgb Hct MCV MCH MCHC RDW Plt Count MPV Sodium Potassium Chloride Carbon Dioxide Anion Gap BUN Creatinine Est GFR (CKD-EPI)AfAm Est GFR (CKD-EPI)NonAf POC Glucometer 132 130 115 Random Glucose Calcium Total Bilirubin AST ALT Alkaline Phosphatase Total Protein Albumin 04/20/19 04/20/19 04/20/19 07:22 07:22 11:07 WBC 10.0 RBC 4.34 Hgb 12.6 Hct 36.8 MCV 84.6 MCH 29.0 MCHC 34.3 RDW 14.5 Plt Count 301 MPV 9.7 Sodium 137 Potassium 3.9 Chloride 106 Carbon Dioxide 22 Anion Gap 9 BUN 14.6 Creatinine 1.3 Est GFR (CKD-EPI)AfAm 68.74 Est GFR (CKD-EPI)NonAf 59.31 POC Glucometer 155 Random Glucose 110 H Calcium 8.5 Total Bilirubin 1.2 H AST 32 ALT 40 Alkaline Phosphatase 115 Total Protein 6.6 Albumin 2.9 L 04/20/19 16:24 WBC RBC Hgb Hct MCV MCH MCHC RDW Plt Count MPV Sodium Potassium Chloride Carbon Dioxide Anion Gap BUN Creatinine Est GFR (CKD-EPI)AfAm Est GFR (CKD-EPI)NonAf POC Glucometer 90 Random Glucose Calcium Total Bilirubin AST ALT Alkaline Phosphatase Total Protein Albumin Active Medications Aspirin (Ecotrin -) 81 mg PO DAILY [facility] Last Admin: 04/20/19 11:00 Dose: 81 mg Atorvastatin Calcium (Lipitor -) 40 mg PO HS [facility] Last Admin: 04/20/19 21:30 Dose: 40 mg Heparin Sodium (Porcine) (Heparin -) 5,000 unit SQ TID [facility] Last Admin: 04/20/19 21:31 Dose: 5,000 unit Sodium Chloride (Normal Saline -) 1,000 mls @ 75 mls/hr IV ASDIR [facility] Last Admin: 04/20/19 17:43 Dose: 75 mls/hr Insulin Aspart (Novolog Vial Sliding Scale -) 1 vial SQ ACHS [facility]; Protocol Last Admin: 04/20/19 21:31 Dose: Not Given Losartan Potassium (Cozaar -) 100 mg PO DAILY [facility] Metoprolol Tartrate (Lopressor -) 100 mg PO BID [facility] Last Admin: 04/20/19 21:30 Dose: 100 mg Tamsulosin HCl (Flomax -) 0.4 mg PO DAILY@0830 [facility] Last Admin: 04/20/19 09:20 Dose: 0.4 mg ASSESSMENT/PLAN: 58 y/o male PMH HTN, DM, CAD s/p CABG, and nephrolithiasis whom c/o NVF and admitted for possible viral gastritis. # Viral syndrome - Cont. off abx - Fever curve down-trending - F/u cultures and parasite smear # H/o CAD - Lipitor 40 mg po hs - ASA 81 mg po qd # HTN - Increase to Losartan 100 mg po qd - Metoprolol tartrate 100 mg po BID # F/E/N - PO - Cont. to monitor - Low sodium, diabetic diet # DVT prophylaxis - Heparin SQ # Disposition - Med/surg - If improved, can go home tomorrow Jorge Romo MD Visit type - Emergency Visit Emergency Visit: No - New Patient This patient is new to me today: No - Critical Care Critical Care patient: No ATTENDING PHYSICIAN STATEMENT I saw and evaluated the patient. I reviewed the resident's note and discussed the case with the resident. I agree with the resident's findings and plan as documented. SUBJECTIVE: OBJECTIVE: ASSESSMENT AND PLAN:
--- NOTE | 2019-04-20 19:25 | PN ---
Teaching Attending Note Name of Resident: Jorge Romo ATTENDING PHYSICIAN STATEMENT I saw and evaluated the patient. I reviewed the resident's note and discussed the case with the resident. I agree with the resident's findings and plan as documented. SUBJECTIVE: seen at 9 am he feels better. had minimal liquidy diarrhea this am . No abd pain, no dysuria OBJECTIVE: NAD Cv: RRR Lungs: CTAB Abd: soft , NT, ND , NL BS Ext: No edema ASSESSMENT AND PLAN: 58 y/o man with h/o CAD s/p CABG, DM, HTN , nephrolithiasis who presented with N/V and fever 1- Fever: unknown source. - cxray reviewed. xray is rotated with a questionable R hilar infiltrate . will rpeat PA -L Cxray - parasite smear was sent - follow blood cx 2- H/o CAD /HTN : cont asa and ARB and statin, and metoprolol 3- DM : cont SSI 4- SUDHIR resolved DVT PX heparin sq
[2019-04-20] MEDS: ATORVASTATIN CA 40 MG TABLET (FP) PO SCH (21:30)
[2019-04-21] MEDS: HEPARIN NA (PORCINE) 5,000 UNITS/ML 1ML VIAL SQ SCH ×3 (06:41→21:16)
[2019-04-21] MEDS: INSULIN SLIDING SCALE (NOVOLOG) 1 VIAL SQ SCH ×4 (06:43→21:17)
[2019-04-21] MEDS: SODIUM CHLORIDE 1,000 ML IV SCH ×2 (07:36→11:30)
[2019-04-21] MEDS ORDERED: AMOX TR/POT CLAV 875MG/125MG TABLETS (FP) PO SCH (08:00)
[2019-04-21] MEDS: TAMSULOSIN HCL 0.4 MG CAP PO SCH (08:34)
[2019-04-21] MEDS ORDERED: ACETAMINOPHEN 1000 MG/100 ML VIAL (NON FORMULARY) IVPB ONE (09:08)
[2019-04-21 09:45] LABS: HEMATOCRIT 33.2 % (35.4-49); HEMOGLOBIN 11.3 GM/dL (11.7-16.9); MCH 28.8 pg (25.7-33.7); MCHC 34.2 g/dl (32.0-35.9); MEAN CELL VOLUME 84.1 fl (80-96); MEAN PLT VOLUME 9.4 fl (7.5-11.1); PLATELET COUNT 288 K/MM3 (134-434); RBC 3.94 M/mm3 (4.00-5.60); RDW 14.5 % (11.9-15.9); WHITE BLOOD COUNT 10.6 K/mm3 (4.0-10.0)
[2019-04-21] MEDS: ASPIRIN COATED 81 MG TABLET.EC PO SCH (09:51)
[2019-04-21 10:20] LABS: ALBUMIN 2.7 g/dl (3.4-5.0); BILIRUBIN,TOTAL 0.9 mg/dL (0.2-1); BLOOD UREA NITROGEN 15.4 mg/dL (7-18); CALCIUM 8.3 mg/dL (8.5-10.1); CREATININE 1.3 mg/dL (0.55-1.3); MAGNESIUM 1.7 mg/dL (1.8-2.4); PHOSPHOROUS 3.1 mg/dL (2.5-4.9); POTASSIUM 3.9 mmol/L (3.5-5.1); TOT PROT 6.1 g/dl (6.4-8.2)
[2019-04-21] MEDS ORDERED: PIPERACILLIN/TAZOB 3.375 GM 3.375 GM in DEXTROSE 5%-WATER - 50 ML IVPB SCH ×2 (10:45→18:00)
[2019-04-21] MEDS: LOSARTAN POTASSIUM 50 MG TABLET (FP) PO SCH (11:03)
[2019-04-21] MEDS: METOPROLOL TARTRATE 50 MG TABLET (FP) PO SCH ×2 (11:03→21:13)
[2019-04-21] MEDS ORDERED: INSULIN (NOVOLOG) ASPART 100 UNITS/ML 10ML VIAL ONE ×2 (11:23→21:01)
--- NOTE | 2019-04-21 11:25 | PN ---
Progress Note, Physician History of Present Illness: stable spiked a fever new finding on xray - Current Medication List Current Medications: Active Medications Amoxicillin/Clavulanate Potassium (Augmentin - 875mg Tablet) 1 tab PO BID@0800, 1730 [facility] Last Admin: 04/21/19 08:34 Dose: 1 tab Aspirin (Ecotrin -) 81 mg PO DAILY [facility] Last Admin: 04/21/19 09:51 Dose: 81 mg Atorvastatin Calcium (Lipitor -) 40 mg PO HS [facility] Last Admin: 04/20/19 21:30 Dose: 40 mg Heparin Sodium (Porcine) (Heparin -) 5,000 unit SQ TID [facility] Last Admin: 04/21/19 06:41 Dose: 5,000 unit Sodium Chloride (Normal Saline -) 1,000 mls @ 75 mls/hr IV ASDIR [facility] Last Admin: 04/21/19 07:36 Dose: 75 mls/hr Piperacillin Sod/Tazobactam (Sod 3.375 gm/ Dextrose) 50 mls @ 100 mls/hr IVPB Q8H-IV [facility]; Protocol Stop: 04/22/19 02:29 Piperacillin Sod/Tazobactam (Sod 3.375 gm/ Dextrose) 50 mls @ 100 mls/hr IVPB Q8H-IV [facility]; Protocol Insulin Aspart (Novolog Vial Sliding Scale -) 1 vial SQ ACHS [facility]; Protocol Last Admin: 04/21/19 06:43 Dose: Not Given Losartan Potassium (Cozaar -) 100 mg PO DAILY [facility] Last Admin: 04/21/19 11:03 Dose: 100 mg Metoprolol Tartrate (Lopressor -) 100 mg PO BID [facility] Last Admin: 04/21/19 11:03 Dose: 100 mg Tamsulosin HCl (Flomax -) 0.4 mg PO DAILY@0830 [facility] Last Admin: 04/21/19 08:34 Dose: 0.4 mg - Objective Vital Signs: Vital Signs Temperature 102.4 F H 04/21/19 08:15 Pulse Rate 90 04/21/19 10:12 Respiratory Rate 18 04/21/19 10:12 Blood Pressure 150/56 L 04/21/19 10:12 O2 Sat by Pulse Oximetry (%) 98 04/20/19 21:00 Constitutional: Yes: Calm, Mild Distress Cardiovascular: Yes: Regular Rate and Rhythm Respiratory: Yes: Regular, CTA Bilaterally Gastrointestinal: Yes: Normal Bowel Sounds, Soft Musculoskeletal: Yes: WNL Extremities: Yes: WNL Neurological: Yes: Alert, Oriented Psychiatric: Yes: Alert, Oriented Labs: CBC, BMP 04/21/19 09:00 04/21/19 06:00 INR, PTT INR 1.29 (0.83-1.09) H 04/18/19 08:45 Assessment/Plan 58 y/o man with h/o CAD s/p CABG, DM, HTN , nephrolithiasis who presented with N/V and fever 1- Fever: unknown source. 2- CAD /HTN 3- DM 4- SUDHIR resolved plan continue to monitor nutrition rest as per the team will start on abx
--- NOTE | 2019-04-21 12:17 | PN ---
Physical Exam: SUBJECTIVE: Patient seen and examined at ebd side no acute events over night he had 102.4 fever this am feels tired denies any cough or chest pain OBJECTIVE: Vital Signs Period Temp Pulse Resp BP Sys/Lara Pulse Ox Last 24 Hr 98.6 F-102.4 F 68-90 18-18 141-157/52-76 98 GENERAL: AAOx3 in NAD HEAD: NC/AT EYES: EOMI, Conjunctiva clear, sclera icteric ENT: moist mucous membrane NECK: Supple, no JVD LUNGS: CTA B/L, no crackles no wheezing no accessory muscle use.med surgical scar S/p CABG HEART: RRR, NSR, normal s1, s2, murmur no M/R/G ABDOMEN: Soft, ND, NT, +BS 4 Q, no CVA Tenderness LOWER EXTREMITIES: no edema, +2DP pulse, NEUROLOGICAL: No focal deficit. Normal speech. gait not observed. PSYCHIATRIC: Cooperative. Good eye contact. Appropriate mood and affect. SKIN: Warm, dry, Laboratory Results - last 24 hr 04/20/19 04/20/19 04/21/19 16:24 21:21 06:00 WBC RBC Hgb Hct MCV MCH MCHC RDW Plt Count MPV Sodium 137 Potassium 3.9 Chloride 106 Carbon Dioxide 22 Anion Gap 10 BUN 15.4 Creatinine 1.3 Est GFR (CKD-EPI)AfAm 68.74 Est GFR (CKD-EPI)NonAf 59.31 POC Glucometer 90 185 Random Glucose 150 H Calcium 8.3 L Phosphorus 3.1 Magnesium 1.7 L Total Bilirubin 0.9 AST 49 H ALT 62 H Alkaline Phosphatase 150 H Total Protein 6.1 L Albumin 2.7 L 04/21/19 04/21/19 04/21/19 06:37 09:00 11:31 WBC 10.6 H RBC 3.94 L Hgb 11.3 L Hct 33.2 L MCV 84.1 MCH 28.8 MCHC 34.2 RDW 14.5 Plt Count 288 MPV 9.4 Sodium Potassium Chloride Carbon Dioxide Anion Gap BUN Creatinine Est GFR (CKD-EPI)AfAm Est GFR (CKD-EPI)NonAf POC Glucometer 133 211 Random Glucose Calcium Phosphorus Magnesium Total Bilirubin AST ALT Alkaline Phosphatase Total Protein Albumin Active Medications Generic Name Dose Route Start Last Admin Trade Name Freq PRN Reason Stop Dose Admin Aspirin 81 mg 04/18/19 10:00 04/21/19 09:51 Ecotrin - PO 81 mg DAILY [facility] Administration Atorvastatin Calcium 40 mg 04/17/19 22:00 04/20/19 21:30 Lipitor - PO 40 mg HS [facility] Administration Heparin Sodium (Porcine) 5,000 unit 04/17/19 22:00 04/21/19 06:41 Heparin - SQ 5,000 unit TID [facility] Administration Sodium Chloride 1,000 mls @ 75 mls/hr 04/19/19 11:30 04/21/19 11:30 Normal Saline - IV Not Given ASDIR [facility] Ampicillin Sodium/Sulbactam 100 mls @ 200 mls/hr 04/21/19 11:30 Sodium 3 gm/ Sodium Chloride IVPB Q8H-IV [facility] Insulin Aspart 1 vial 04/17/19 22:00 04/21/19 11:43 Novolog Vial Sliding Scale - SQ 2 units ACHS [facility] Administration Protocol Losartan Potassium 100 mg 04/21/19 10:00 04/21/19 11:03 Cozaar - PO 100 mg DAILY [facility] Administration Metoprolol Tartrate 100 mg 04/17/19 22:00 04/21/19 11:03 Lopressor - PO 100 mg BID [facility] Administration Tamsulosin HCl 0.4 mg 04/19/19 08:30 04/21/19 08:34 Flomax - PO 0.4 mg DAILY@0830 [facility] Administration CBC, BMP 04/21/19 09:00 04/21/19 06:00 ASSESSMENT/PLAN: 58 y/o male PMH HTN, DM, CAD s/p CABG, and nephrolithiasis whom c/o NVF and admitted for possible viral gastritis. # Fever likley du to PNA will start pt on Unasyn * blood and urine cx are negative * paracyte smear negative * cxr postive for PNA # H/o CAD cont Lipitor 40 mg po hs and ASA # HTN Increase to Losartan 100 mg po qd , cont Metoprolol tartrate 100 mg po BID # transaminities , trend , follow up as out pt # F/E/N * oral intake * monitor lytes * Low sodium, diabetic diet # DVT prophylaxis * Heparin SQ # Disposition: M/S Visit type - Emergency Visit Emergency Visit: Yes ED Registration Date: 04/17/19 Care time: The patient presented to the Emergency Department on the above date and was hospitalized for further evaluation of their emergent condition. - New Patient This patient is new to me today: Yes Date on this admission: 04/21/19 - Critical Care Critical Care patient: No - Discharge Referral Referred to [facility] Med P.C.: No ATTENDING PHYSICIAN STATEMENT I saw and evaluated the patient. I reviewed the resident's note and discussed the case with the resident. I agree with the resident's findings and plan as documented. SUBJECTIVE: OBJECTIVE: ASSESSMENT AND PLAN:
[2019-04-21] MEDS ORDERED: MAGNESIUM SULF 50% (8.12 MEQ/2 ML-1 GM VIAL) IVPB ONE (12:22)
[2019-04-21] MEDS ORDERED: PT OWN MED DRAWER 7, Y5N ONE ×2 (13:09→19:10)
--- NOTE | 2019-04-21 13:10 | PN ---
Teaching Attending Note Name of Resident: Hitesh Gonzalez ATTENDING PHYSICIAN STATEMENT I saw and evaluated the patient. I reviewed the resident's note and discussed the case with the resident. I agree with the resident's findings and plan as documented. SUBJECTIVE: had a fever this am . has no abd pain. mild cough. no N/V. no diarrhea. OBJECTIVE: NAD Cv: RRR Lungs: CTAB Ext: No edema ASSESSMENT AND PLAN: 58 y/o man with h/o CAD s/p CABG, DM, HTN , nephrolithiasis who presented with N/V and fever 1- Fever: due to R sided PNA. Not sure CAP or aspiration PNA - d/w Dr. Chaudhari. place on Unasyn - follow blood cx . neg to date - has good po intake. dc IVF 2- H/o CAD /HTN : cont asa and ARB and statin, and metoprolol 3- DM : cont SSI 4- SUDHIR resolved DVT PX heparin sq
[2019-04-21] MEDS: AMPICILLIN NA/SULBACTAM NA 3 GM in SODIUM CHLORIDE 100 ML IVPB SCH ×2 (13:20→19:16)
[2019-04-21] MEDS: ACETAMINOPHEN 1000 MG/100 ML VIAL (NON FORMULARY) IVPB PRN (18:33)
[2019-04-21] MEDS: ATORVASTATIN CA 40 MG TABLET (FP) PO SCH (21:16)
[2019-04-22] MEDS: AMPICILLIN NA/SULBACTAM NA 3 GM in SODIUM CHLORIDE 100 ML IVPB SCH ×3 (01:25→18:52)
[2019-04-22] MEDS: ACETAMINOPHEN 1000 MG/100 ML VIAL (NON FORMULARY) IVPB PRN ×2 (06:36→22:19)
[2019-04-22] MEDS: HEPARIN NA (PORCINE) 5,000 UNITS/ML 1ML VIAL SQ SCH ×3 (06:42→21:37)
[2019-04-22] MEDS: INSULIN SLIDING SCALE (NOVOLOG) 1 VIAL SQ SCH ×4 (06:46→21:41)
[2019-04-22] MEDS ORDERED: PT OWN MED DRAWER 7, Y5N ONE ×2 (08:54→18:36)
[2019-04-22 08:59] LABS: ALBUMIN 2.5 g/dl (3.4-5.0); BILIRUBIN,TOTAL 1.3 mg/dL (0.2-1); BLOOD UREA NITROGEN 18.2 mg/dL (7-18); CREATININE 1.6 mg/dL (0.55-1.3); POTASSIUM 3.4 mmol/L (3.5-5.1); TOT PROT 5.9 g/dl (6.4-8.2)
[2019-04-22 09:04] LABS: BASO % 0.9 % (0-2.0); HEMATOCRIT 31.5 % (35.4-49); HEMOGLOBIN 10.6 GM/dL (11.7-16.9); LYMPH % 9.7 % (8-40); MCH 28.2 pg (25.7-33.7); MCHC 33.6 g/dl (32.0-35.9); MEAN CELL VOLUME 84.1 fl (80-96); MEAN PLT VOLUME 9.7 fl (7.5-11.1); MONO % 9.5 % (3.8-10.2); NEUT % 79.9 % (42.8-82.8); PLATELET COUNT 295 K/MM3 (134-434); RBC 3.74 M/mm3 (4.00-5.60); RDW 14.5 % (11.9-15.9); WHITE BLOOD COUNT 11.4 K/mm3 (4.0-10.0)
[2019-04-22] MEDS: METOPROLOL TARTRATE 50 MG TABLET (FP) PO SCH ×2 (09:22→21:36)
[2019-04-22] MEDS: TAMSULOSIN HCL 0.4 MG CAP PO SCH (09:22)
[2019-04-22] MEDS: LOSARTAN POTASSIUM 50 MG TABLET (FP) PO SCH (09:23)
[2019-04-22] MEDS: ASPIRIN COATED 81 MG TABLET.EC PO SCH (09:23)
[2019-04-22 09:41] LABS: EPI CELLS 1.7 /HPF (0-5/HPF); HYALINE CASTS 6 /lpf (0-8); URINE APPEARANCE CLOUDY; URINE BACTERIA 5.5 /hpf (NEGATIVE); URINE BILIRUBIN NEGATIVE (NEGATIVE); URINE COLOR YELLOW; URINE GLUCOSE (UA) NEGATIVE (NEGATIVE); URINE KETONE TRACE (NEGATIVE); URINE LEUK ESTERASE NEGATIVE (NEGATIVE); URINE NITRITE NEGATIVE (NEGATIVE); URINE PROTEIN 2+ (NEGATIVE); URINE RBC 3 /hpf (0-4); URINE UROBILINOGEN 0.2 mg/dL (0.2-1.0); URINE WBC 3 /hpf (0-5)
--- NOTE | 2019-04-22 15:54 | PN ---
Progress Note (short form) - Note Progress Note: Subjective: cont to have fever. no N/V , no abd pain, no urinary sx. no diarrhea today . feels tired. Objective: Vital Signs: Last Vital Signs Temp Pulse Resp BP Pulse Ox 102.8 F H 85 18 146/65 97 04/22/19 15:38 04/22/19 15:38 04/22/19 15:38 04/22/19 15:38 04/21/19 21:00 Laboratory Results - last 24 hr 04/21/19 04/21/19 04/22/19 16:16 21:11 06:46 WBC RBC Hgb Hct MCV MCH MCHC RDW Plt Count MPV Absolute Neuts (auto) Neutrophils % Lymphocytes % Monocytes % Eosinophils % Basophils % Nucleated RBC % Sodium Potassium Chloride Carbon Dioxide Anion Gap BUN Creatinine Est GFR (CKD-EPI)AfAm Est GFR (CKD-EPI)NonAf POC Glucometer 120 166 140 Random Glucose Calcium Total Bilirubin AST ALT Alkaline Phosphatase Total Protein Albumin Urine Color Urine Appearance Urine pH Ur Specific [place] Urine Protein Urine Glucose (UA) Urine Ketones Urine Blood Urine Nitrite Urine Bilirubin Urine Urobilinogen Ur Leukocyte Esterase Urine WBC (Auto) Urine RBC (Auto) Urine Casts (Auto) U Epithel Cells (Auto) Urine Bacteria (Auto) 04/22/19 04/22/19 04/22/19 07:00 07:12 07:12 WBC 11.4 H RBC 3.74 L Hgb 10.6 L Hct 31.5 L MCV 84.1 MCH 28.2 MCHC 33.6 RDW 14.5 Plt Count 295 MPV 9.7 Absolute Neuts (auto) 9.1 H Neutrophils % 79.9 Lymphocytes % 9.7 D Monocytes % 9.5 Eosinophils % 0.0 D Basophils % 0.9 D Nucleated RBC % 0 Sodium 135 L Potassium 3.4 L Chloride 105 Carbon Dioxide 19 L Anion Gap 12 BUN 18.2 H Creatinine 1.6 H Est GFR (CKD-EPI)AfAm 53.48 Est GFR (CKD-EPI)NonAf 46.14 POC Glucometer Random Glucose 155 H Calcium 8.0 L Total Bilirubin 1.3 H AST 82 H ALT 96 H Alkaline Phosphatase 185 H Total Protein 5.9 L Albumin 2.5 L Urine Color Yellow Urine Appearance Cloudy Urine pH 5.0 Ur Specific [place] 1.021 Urine Protein 2+ H Urine Glucose (UA) Negative Urine Ketones Trace H Urine Blood Negative Urine Nitrite Negative Urine Bilirubin Negative Urine Urobilinogen 0.2 Ur Leukocyte Esterase Negative Urine WBC (Auto) 3 Urine RBC (Auto) 3 Urine Casts (Auto) 6 U Epithel Cells (Auto) 1.7 Urine Bacteria (Auto) 5.5 04/22/19 12:25 WBC RBC Hgb Hct MCV MCH MCHC RDW Plt Count MPV Absolute Neuts (auto) Neutrophils % Lymphocytes % Monocytes % Eosinophils % Basophils % Nucleated RBC % Sodium Potassium Chloride Carbon Dioxide Anion Gap BUN Creatinine Est GFR (CKD-EPI)AfAm Est GFR (CKD-EPI)NonAf POC Glucometer 208 Random Glucose Calcium Total Bilirubin AST ALT Alkaline Phosphatase Total Protein Albumin Urine Color Urine Appearance Urine pH Ur Specific [place] Urine Protein Urine Glucose (UA) Urine Ketones Urine Blood Urine Nitrite Urine Bilirubin Urine Urobilinogen Ur Leukocyte Esterase Urine WBC (Auto) Urine RBC (Auto) Urine Casts (Auto) U Epithel Cells (Auto) Urine Bacteria (Auto) Physical Exam: NAD, looks ill Cv: RRR Lungs: CTAB Ext: No edema ASSESSMENT AND PLAN: 58 y/o man with h/o CAD s/p CABG, DM, HTN , nephrolithiasis who presented with N /V and fever 1- Sepsis: possibly due to right sided PNA. fever is very high and need to r/o other causes. - check CT of chest Abd/pelvis without contrast ( SUDHIR ) . evaluate mediastinum , and lung paranchyma. r/o lymphadenopathy , r/o abscess. - check US of RUQ. - cont unasyn. ? change to zosyn. will ask ID - blood cx was sent last night - order echo . r/o vegetations - resume IVF in setting of sepsis and SUDHIR 2- Transaminitis : could be due to sepsis . check US . check legionella Ag 3- SUDHIR : resume IVF 4- H/o CAD /HTN: cont asa, ARB and statin, and metoprolol 5- DM: cont SSI 6- SUDHIR resolved DVT PX heparin sq Visit type - Emergency Visit Emergency Visit: Yes ED Registration Date: 04/17/19 Care time: The patient presented to the Emergency Department on the above date and was hospitalized for further evaluation of their emergent condition. - New Patient This patient is new to me today: No - Critical Care Critical Care patient: No
[2019-04-22] MEDS ORDERED: POTASSIUM CHLORIDE TABS 20 MEQ TABLET.ER (FP) PO ONE ×2 (15:57→21:49)
[2019-04-22] MEDS ORDERED: SODIUM CHLORIDE 1,000 ML IV SCH (16:00)
[2019-04-22] MEDS ORDERED: ACETAMINOPHEN 325 MG TABLET (FP) PO ONE (16:01)
[2019-04-22] MEDS ORDERED: ACETAMINOPHEN 1000 MG/100 ML VIAL (NON FORMULARY) IVPB ONE (16:40)
[2019-04-22] MEDS: PROCHLORPERAZINE INJECTION 10 MG/2 ML VIAL IVPB PRN ×2 (17:37→21:33)
[2019-04-22] MEDS: ATORVASTATIN CA 40 MG TABLET (FP) PO SCH (21:36)
[2019-04-23] MEDS: AMPICILLIN NA/SULBACTAM NA 3 GM in SODIUM CHLORIDE 100 ML IVPB SCH ×2 (02:12→10:38)
[2019-04-23] MEDS: PROCHLORPERAZINE INJECTION 10 MG/2 ML VIAL IVPB PRN ×2 (05:09→18:47)
[2019-04-23] MEDS: HEPARIN NA (PORCINE) 5,000 UNITS/ML 1ML VIAL SQ SCH ×3 (05:10→22:34)
[2019-04-23] MEDS: ACETAMINOPHEN 1000 MG/100 ML VIAL (NON FORMULARY) IVPB PRN (05:53)
[2019-04-23] MEDS: INSULIN SLIDING SCALE (NOVOLOG) 1 VIAL SQ SCH ×4 (06:03→22:34)
[2019-04-23 10:03] LABS: BASO % 0.5 % (0-2.0); EOS % 0.1 % (0-4.5); HEMATOCRIT 31.3 % (35.4-49); HEMOGLOBIN 10.5 GM/dL (11.7-16.9); LYMPH % 6.4 % (8-40); MCHC 33.5 g/dl (32.0-35.9); MEAN CELL VOLUME 83.6 fl (80-96); MEAN PLT VOLUME 9.2 fl (7.5-11.1); MONO % 6.9 % (3.8-10.2); NEUT % 86.1 % (42.8-82.8); PLATELET COUNT 295 K/MM3 (134-434); RBC 3.74 M/mm3 (4.00-5.60); RDW 14.9 % (11.9-15.9); WHITE BLOOD COUNT 14.9 K/mm3 (4.0-10.0)
--- NOTE | 2019-04-23 10:16 | ECHO ---
Name: AICHA DUARTE Exam:Adult Echocardiogram Study Date: 04/23/2019 08:44 AM Age: 58 yrs Height: 70 in Weight: 210 lb BSA: 2.1 m2 MMode/2D Measurements & Calculations TAPSE: 1.5 cm RV S Bebeto: 11.6 cm/sec Doppler Measurements & Calculations MV E max bebeto: 111.0 cm/sec Ao V2 max: 141.9 cm/sec MV A max bebeto: 99.4 cm/sec Ao max P.1 mmHg MV E/A: 1.1 MV dec time: 0.19 sec LV V1 max P.7 mmHg Med Peak E' Bebeto: 6.6 cm/sec LV V1 max: 119.8 cm/sec Med E/e': 16.7 Lat Peak E' Beb[place]: 10.3 cm/sec Lat E/e': 10.7 Tech Comments technically difficult pt non cooperative. Procedure The study was technically limited with all images being suboptimal in quality. The study was technica lly difficult with many images being suboptimal in quality. Interpretation Summary Technically limited, study,poor quality Left and right ventricular functions appear normal Valves not well visualized, mitral valve appears mildly thickened, aortic valve calcified, no signifi cant valvular dysfuncton by doppler. Kt Watkins 04/23/2019 10:16 AM
[2019-04-23 10:27] LABS: BLOOD UREA NITROGEN 20.1 mg/dL (7-18); CALCIUM 7.7 mg/dL (8.5-10.1); CREATININE 1.7 mg/dL (0.55-1.3); MAGNESIUM 2.1 mg/dL (1.8-2.4); PHOSPHOROUS 2.7 mg/dL (2.5-4.9); POTASSIUM 3.6 mmol/L (3.5-5.1)
[2019-04-23] MEDS: METOPROLOL TARTRATE 50 MG TABLET (FP) PO SCH ×2 (10:38→22:34)
[2019-04-23] MEDS: ASPIRIN COATED 81 MG TABLET.EC PO SCH (10:39)
[2019-04-23] MEDS: TAMSULOSIN HCL 0.4 MG CAP PO SCH (10:39)
[2019-04-23] MEDS: LOSARTAN POTASSIUM 50 MG TABLET (FP) PO SCH (10:51)
--- NOTE | 2019-04-23 11:18 | PN ---
Progress Note, Physician History of Present Illness: says he does not feel too well vomiting feels weak still with spikes - Current Medication List Current Medications: Active Medications Acetaminophen (Ofirmev Injection -) 1,000 mg IVPB Q6H PRN PRN Reason: FEVER Stop: 04/23/19 21:48 Last Admin: 04/23/19 05:53 Dose: 1,000 mg Aspirin (Ecotrin -) 81 mg PO DAILY [facility] Last Admin: 04/23/19 10:39 Dose: 81 mg Atorvastatin Calcium (Lipitor -) 40 mg PO HS [facility] Last Admin: 04/22/19 21:36 Dose: 40 mg Heparin Sodium (Porcine) (Heparin -) 5,000 unit SQ TID [facility] Last Admin: 04/23/19 05:10 Dose: 5,000 unit Ampicillin Sodium/Sulbactam (Sodium 3 gm/ Sodium Chloride) 100 mls @ 200 mls/ hr IVPB Q8H-IV [facility] Last Admin: 04/23/19 10:38 Dose: 200 mls/hr Doxycycline Hyclate 100 mg/ (Dextrose) 100 mls @ 100 mls/hr IVPB BID [facility] Sodium Chloride (Normal Saline -) 1,000 mls @ 125 mls/hr IV ASDIR [facility] Insulin Aspart (Novolog Vial Sliding Scale -) 1 vial SQ ACHS [facility]; Protocol Last Admin: 04/23/19 06:03 Dose: Not Given Metoprolol Tartrate (Lopressor -) 100 mg PO BID [facility] Last Admin: 04/23/19 10:38 Dose: 100 mg Prochlorperazine Edisylate (Compazine Injection -) 5 mg IVPB Q4H PRN PRN Reason: NAUSEA AND/OR VOMITING Last Admin: 04/23/19 05:09 Dose: 5 mg Tamsulosin HCl (Flomax -) 0.4 mg PO DAILY@0830 [facility] Last Admin: 04/23/19 10:39 Dose: 0.4 mg - Objective Vital Signs: Vital Signs Temperature 99.3 F 04/23/19 09:14 Pulse Rate 78 04/23/19 09:14 Respiratory Rate 18 04/23/19 09:14 Blood Pressure 136/63 04/23/19 09:14 O2 Sat by Pulse Oximetry (%) 96 04/22/19 21:00 Constitutional: Yes: Calm, Mild Distress Cardiovascular: Yes: S1, S2 Respiratory: Yes: Regular, CTA Bilaterally Gastrointestinal: Yes: Normal Bowel Sounds, Soft Musculoskeletal: Yes: WNL Extremities: Yes: WNL Neurological: Yes: Alert, Oriented Psychiatric: Yes: Alert, Oriented Labs: CBC, BMP 04/23/19 09:30 04/23/19 09:30 INR, PTT INR 1.29 (0.83-1.09) H 04/18/19 08:45 Assessment/Plan 58 y/o man with h/o CAD s/p CABG, DM, HTN , nephrolithiasis who presented with N/V and fever 1- Fever: unknown source. 2- CAD /HTN 3- DM 4- SUDHIR resolved infiltrate in the lungs plan continue to monitor nutrition rest as per the team abx
--- NOTE | 2019-04-23 11:19 | PN ---
Progress Note, Physician History of Present Illness: still spiking fever was very thirsty last night had vomiting again now feels a bit better - Current Medication List Current Medications: Active Medications Acetaminophen (Ofirmev Injection -) 1,000 mg IVPB Q6H PRN PRN Reason: FEVER Stop: 04/23/19 21:48 Last Admin: 04/23/19 05:53 Dose: 1,000 mg Aspirin (Ecotrin -) 81 mg PO DAILY [facility] Last Admin: 04/23/19 10:39 Dose: 81 mg Atorvastatin Calcium (Lipitor -) 40 mg PO HS [facility] Last Admin: 04/22/19 21:36 Dose: 40 mg Heparin Sodium (Porcine) (Heparin -) 5,000 unit SQ TID [facility] Last Admin: 04/23/19 05:10 Dose: 5,000 unit Ampicillin Sodium/Sulbactam (Sodium 3 gm/ Sodium Chloride) 100 mls @ 200 mls/ hr IVPB Q8H-IV [facility] Last Admin: 04/23/19 10:38 Dose: 200 mls/hr Doxycycline Hyclate 100 mg/ (Dextrose) 100 mls @ 100 mls/hr IVPB BID [facility] Sodium Chloride (Normal Saline -) 1,000 mls @ 125 mls/hr IV ASDIR [facility] Insulin Aspart (Novolog Vial Sliding Scale -) 1 vial SQ ACHS [facility]; Protocol Last Admin: 04/23/19 06:03 Dose: Not Given Metoprolol Tartrate (Lopressor -) 100 mg PO BID [facility] Last Admin: 04/23/19 10:38 Dose: 100 mg Prochlorperazine Edisylate (Compazine Injection -) 5 mg IVPB Q4H PRN PRN Reason: NAUSEA AND/OR VOMITING Last Admin: 04/23/19 05:09 Dose: 5 mg Tamsulosin HCl (Flomax -) 0.4 mg PO DAILY@0830 [facility] Last Admin: 04/23/19 10:39 Dose: 0.4 mg - Objective Vital Signs: Vital Signs Temperature 99.3 F 04/23/19 09:14 Pulse Rate 78 04/23/19 09:14 Respiratory Rate 18 04/23/19 09:14 Blood Pressure 136/63 04/23/19 09:14 O2 Sat by Pulse Oximetry (%) 96 04/22/19 21:00 Constitutional: Yes: Calm Cardiovascular: Yes: S1, S2 Respiratory: Yes: Regular, CTA Bilaterally Gastrointestinal: Yes: Normal Bowel Sounds, Soft Musculoskeletal: Yes: WNL Extremities: Yes: WNL Neurological: Yes: Alert, Oriented Psychiatric: Yes: Alert, Oriented Labs: CBC, BMP 04/23/19 09:30 04/23/19 09:30 INR, PTT INR 1.29 (0.83-1.09) H 04/18/19 08:45 Assessment/Plan 58 y/o man with h/o CAD s/p CABG, DM, HTN , nephrolithiasis who presented with N/V and fever 1- Fever: unknown source. 2- CAD /HTN 3- DM 4- SUDHIR resolved infiltrate in the lungs plan hydration continue abx for now monitor fevers symptomatic control
[2019-04-23] MEDS: SODIUM CHLORIDE 1,000 ML IV SCH (12:22)
[2019-04-23] MEDS ORDERED: PIPERACILLIN/TAZOB 3.375 GM 3.375 GM in DEXTROSE 5%-WATER - 50 ML IVPB ONE (13:22)
[2019-04-23] MEDS ORDERED: DEXTROSE 5%-WATER 100 ML IVPB ONE (14:16)
[2019-04-23] MEDS ORDERED: PIPERACILLIN/TAZOBACTAM 4.5 GM VIAL IVPB ONE (14:16)
[2019-04-23] MEDS ORDERED: PIPERACILLIN/TAZOB 4.5 GM 4.5 GM in DEXTROSE 5%-WATER 100 ML IVPB SCH (15:00)
--- NOTE | 2019-04-23 17:50 | PN ---
Physical Exam: SUBJECTIVE: Patient seen and examined. Pt. states he vomited once overnight, and feels nauseous. Pt. in the morning denied feeling short of breath but is short of breath currently. Pt. endorses the new development of a non-productive cough. Pt. had highest temperature of 103 over night but spiked multiple temperatures despite Tylenol treatment overnight. OBJECTIVE: Vital Signs Period Temp Pulse Resp BP Sys/Lara Pulse Ox Last 24 Hr 98.6 F-103.7 F 75-91 18-18 114-147/48-67 96-96 GENERAL: The patient is awake, alert, and fully oriented, in no acute distress. HEAD: Normal with no signs of trauma. EYES: Sclera anicteric, conjunctiva clear. ENT: Dry mucous membranes. NECK: Trachea midline, full range of motion, supple. LUNGS: Breath sounds equal, clear to auscultation bilaterally, no wheezes, no crackles, no accessory muscle use. HEART: Regular rate and rhythm, S1, S2 without murmur ABDOMEN: Soft, nontender, nondistended, normoactive bowel sounds, no guarding EXTREMITIES: 2+ dorsal pedal pulses, warm, well-perfused, no edema. NEUROLOGICAL: Normal speech, gait not observed. PSYCH: Normal mood, normal affect. SKIN: Warm, dry Laboratory Results - last 24 hr 04/22/19 04/23/19 04/23/19 21:40 05:15 09:30 WBC 14.9 H RBC 3.74 L Hgb 10.5 L Hct 31.3 L MCV 83.6 MCH 28.0 MCHC 33.5 RDW 14.9 Plt Count 295 MPV 9.2 Absolute Neuts (auto) 12.9 H Neutrophils % 86.1 H Lymphocytes % 6.4 L D Monocytes % 6.9 Eosinophils % 0.1 D Basophils % 0.5 Nucleated RBC % 0 Sodium Potassium Chloride Carbon Dioxide Anion Gap BUN Creatinine Est GFR (CKD-EPI)AfAm Est GFR (CKD-EPI)NonAf POC Glucometer 200 152 Random Glucose Calcium Phosphorus Magnesium 04/23/19 04/23/19 04/23/19 09:30 12:20 16:31 WBC RBC Hgb Hct MCV MCH MCHC RDW Plt Count MPV Absolute Neuts (auto) Neutrophils % Lymphocytes % Monocytes % Eosinophils % Basophils % Nucleated RBC % Sodium 134 L Potassium 3.6 Chloride 106 Carbon Dioxide 20 L Anion Gap 9 BUN 20.1 H Creatinine 1.7 H Est GFR (CKD-EPI)AfAm 49.70 Est GFR (CKD-EPI)NonAf 42.88 POC Glucometer 221 195 Random Glucose 178 H Calcium 7.7 L Phosphorus 2.7 Magnesium 2.1 Active Medications Home Medications Medication Instructions Recorded metFORMIN HCL [Metformin HCl] 1,000 mg PO BID 05/28/15 Aspirin [ASA -] 81 mg PO DAILY #30 tab.chew 01/17/17 Atorvastatin Ca [Lipitor] 40 mg PO HS #30 tablet 01/17/17 Losartan Potassium [Cozaar -] 50 mg PO DAILY 09/21/17 Dulaglutide [Trulicity] 1.5 mg SQ WEEKLY 04/17/19 Metoprolol Tartrate [Lopressor] 100 mg PO BID 04/17/19 Oxybutynin Chloride 5 mg PO DAILY 04/17/19 Ranitidine HCl 300 mg PO HS 04/17/19 Tamsulosin HCl 0.4 mg PO DAILY 04/17/19 Current Medications Acetaminophen (Ofirmev Injection -) 1,000 mg IVPB Q6H PRN PRN Reason: FEVER Stop: 04/23/19 21:48 Last Admin: 04/23/19 05:53 Dose: 1,000 mg Aspirin (Ecotrin -) 81 mg PO DAILY [facility] Last Admin: 04/23/19 10:39 Dose: 81 mg Atorvastatin Calcium (Lipitor -) 40 mg PO HS [facility] Last Admin: 04/22/19 21:36 Dose: 40 mg Heparin Sodium (Porcine) (Heparin -) 5,000 unit SQ TID [facility] Last Admin: 04/23/19 13:22 Dose: 5,000 unit Doxycycline Hyclate 100 mg/ (Dextrose) 100 mls @ 100 mls/hr IVPB BID [facility] Sodium Chloride (Normal Saline -) 1,000 mls @ 125 mls/hr IV ASDIR [facility] Last Admin: 04/23/19 12:22 Dose: 125 mls/hr Piperacillin Sod/Tazobactam (Sod 4.5 gm/ Dextrose) 100 mls @ 200 mls/hr IVPB Q6H-IV [facility]; Protocol Piperacillin Sod/Tazobactam (Sod 4.5 gm/ Dextrose) 100 mls @ 200 mls/hr IVPB Q6H-IV [facility]; Protocol Stop: 04/24/19 03:29 Last Admin: 04/23/19 15:07 Dose: 200 mls/hr Insulin Aspart (Novolog Vial Sliding Scale -) 1 vial SQ ACHS [facility]; Protocol Last Admin: 04/23/19 16:40 Dose: Not Given Metoprolol Tartrate (Lopressor -) 100 mg PO BID [facility] Last Admin: 04/23/19 10:38 Dose: 100 mg Prochlorperazine Edisylate (Compazine Injection -) 5 mg IVPB Q4H PRN PRN Reason: NAUSEA AND/OR VOMITING Last Admin: 04/23/19 05:09 Dose: 5 mg Tamsulosin HCl (Flomax -) 0.4 mg PO DAILY@0830 [facility] Last Admin: 04/23/19 10:39 Dose: 0.4 mg ASSESSMENT/PLAN: Pt. is a 58 y.o. M w/ PMHx. of HTN, DM, CAD (s/p CABG), and Nephrolithiasis presents with nausea, vomiting and fever and admitted for possible viral gastritis. #CAP blood and urine cx are negative paracyte smear negative CXR shows RLL PNA c/ Unasyn (Day 3), Given 1 dose of Zosyn instead of Unasyn, will c/w Unasyn # H/o CAD c/w Lipitor 40 mg and ASA # HTN c/w Metoprolol Tartrate 100 mg po BID #SUDHIR likely due to hypoperfusion in light of sepsis Hold Losartan increased IVF #Transaminitis trend, follow up as outpatient # F/E/N NS @ 125, Encourage PO intake monitor lytes, replete as needed Low sodium, diabetic diet # DVT prophylaxis Heparin SQ # Disposition: M/S Visit type - Emergency Visit Emergency Visit: Yes ED Registration Date: 04/17/19 Care time: The patient presented to the Emergency Department on the above date and was hospitalized for further evaluation of their emergent condition. - New Patient This patient is new to me today: Yes Date on this admission: 04/24/19 - Critical Care Critical Care patient: No - Discharge Referral Referred to [facility] No ATTENDING PHYSICIAN STATEMENT I saw and evaluated the patient. I reviewed the resident's note and discussed the case with the resident. I agree with the resident's findings and plan as documented. SUBJECTIVE: OBJECTIVE: ASSESSMENT AND PLAN:
--- NOTE | 2019-04-23 18:56 | PN ---
Teaching Attending Note Name of Resident: Javier Turner ATTENDING PHYSICIAN STATEMENT I saw and evaluated the patient. I reviewed the resident's note and discussed the case with the resident. I agree with the resident's findings and plan as documented. SUBJECTIVE: cont to have fever . seen at 9 am OBJECTIVE: NAD Cv: RRR, no MRG Lungs: CTAB Ext: No edema ASSESSMENT AND PLAN: 58 y/o man with h/o CAD s/p CABG, DM, HTN , nephrolithiasis who presented with N /V and fever 1- Sepsis: due to right sided PNA. - CTs reviewed. R sided PNA. and no Abd/pelvis pathologies - RUQ US pending - cont unasyn. - follow blood cx - echo with no vegetations - cont IVF 2- Transaminitis : could be due to sepsis . check US . legionella Ag pending 3- SUDHIR :cont and increase IVF . - renal cysts to be followed as out pt 4- H/o CAD /HTN: cont asa, ARB and statin, and metoprolol 5- DM: cont SSI. DVT PX heparin sq
[2019-04-23] MEDS ORDERED: DOXYCYCLINE INJECTION 100 MG in DEXTROSE 5%-WATER - 100 ML IVPB SCH (22:00)
[2019-04-23] MEDS ORDERED: ACETAMINOPHEN 325 MG TABLET (FP) PO ONE (22:32)
[2019-04-23] MEDS: ATORVASTATIN CA 40 MG TABLET (FP) PO SCH (22:34)
[2019-04-23] MEDS ORDERED: PT OWN MED DRAWER 7, Y5N ONE (22:38)
[2019-04-24] MEDS: AMPICILLIN NA/SULBACTAM NA 3 GM in SODIUM CHLORIDE 100 ML IVPB SCH ×3 (01:26→18:13)
[2019-04-24] MEDS: SODIUM CHLORIDE 1,000 ML IV SCH ×2 (01:27→10:50)
[2019-04-24] MEDS: HEPARIN NA (PORCINE) 5,000 UNITS/ML 1ML VIAL SQ SCH ×2 (06:55→13:35)
[2019-04-24] MEDS: INSULIN SLIDING SCALE (NOVOLOG) 1 VIAL SQ SCH ×4 (06:56→23:44)
[2019-04-24] MEDS: TAMSULOSIN HCL 0.4 MG CAP PO SCH (08:18)
[2019-04-24 09:10] LABS: EOS % 1.1 % (0-4.5); HEMATOCRIT 29.6 % (35.4-49); HEMOGLOBIN 10.1 GM/dL (11.7-16.9); LYMPH % 9.9 % (8-40); MCH 28.5 pg (25.7-33.7); MCHC 34.1 g/dl (32.0-35.9); MEAN CELL VOLUME 83.5 fl (80-96); MEAN PLT VOLUME 9.7 fl (7.5-11.1); MONO % 7.7 % (3.8-10.2); NEUT % 80.3 % (42.8-82.8); PLATELET COUNT 330 K/MM3 (134-434); RBC 3.54 M/mm3 (4.00-5.60); RDW 15.1 % (11.9-15.9); WHITE BLOOD COUNT 9.9 K/mm3 (4.0-10.0)
[2019-04-24 09:53] LABS: ALBUMIN 2.1 g/dl (3.4-5.0); BILIRUBIN,DIRECT 0.3 mg/dL (0.0-0.2); BILIRUBIN,TOTAL 0.7 mg/dL (0.2-1); CALCIUM 7.8 mg/dL (8.5-10.1); CREATININE 1.5 mg/dL (0.55-1.3); POTASSIUM 3.6 mmol/L (3.5-5.1); TOT PROT 5.6 g/dl (6.4-8.2)
[2019-04-24] MEDS ORDERED: DOXYCYCLINE HYCLATE 100 MG VIAL ONE ×2 (10:26→23:22)
[2019-04-24] MEDS ORDERED: DEXTROSE 5%-WATER 100 ML IVPB ONE ×2 (10:26→23:22)
[2019-04-24] MEDS ORDERED: PT OWN MED DRAWER 7, Y5N ONE ×2 (10:27→17:56)
[2019-04-24] MEDS: DOXYCYCLINE INJECTION 100 MG in DEXTROSE 5%-WATER 100 ML IVPB SCH (10:48)
[2019-04-24] MEDS: ASPIRIN COATED 81 MG TABLET.EC PO SCH (10:48)
[2019-04-24] MEDS: METOPROLOL TARTRATE 50 MG TABLET (FP) PO SCH ×2 (10:48→23:46)
[2019-04-24] MEDS: PROCHLORPERAZINE INJECTION 10 MG/2 ML VIAL IVPB PRN ×2 (12:12→23:47)
[2019-04-24] MEDS: PIPERACILLIN/TAZOB 4.5 GM 4.5 GM in DEXTROSE 5%-WATER 100 ML IVPB SCH ×2 (13:19→13:20)
--- NOTE | 2019-04-24 14:16 | PN ---
Physical Exam: SUBJECTIVE: Patient seen and examined at the bedside. Overnight had fever Tmax 100.7. Noted that he felt feverish and continued to have a cough and felt generalized weakness. Had some intermittent nausea. Denied cp, sob, abd pain, vomiting, headaches, dizziness, lightheadedness. OBJECTIVE: Vital Signs Period Temp Pulse Resp BP Sys/Lara Pulse Ox Last 24 Hr 99.2 F-100.7 F 70-85 20-20 127-148/63-81 97 GENERAL: The patient is awake, alert, and fully oriented, in no acute distress. HEAD: Normal with no signs of trauma. ENT: Oropharynx clear without exudates, dry mucous membranes. NECK: Trachea midline, full range of motion, supple. LUNGS: Breath sounds decreased on the RLL with mild crackles. Clear on the left. HEART: Regular rate and rhythm, S1, S2 without murmur, rub. ABDOMEN: Soft, nontender, nondistended, normoactive bowel sounds, no guarding, no rebound, no masses. EXTREMITIES: 2+ pulses, warm, well-perfused, no edema. NEUROLOGICAL: Cranial nerves II through XII grossly intact. 5/5 muscle strength bilaterally, upper and lower extremities. PSYCH: Normal mood, normal affect. SKIN: Warm, dry, normal turgor, no rashes or lesions noted. Laboratory Results - last 24 hr 04/23/19 04/23/19 04/24/19 16:31 22:25 06:49 WBC RBC Hgb Hct MCV MCH MCHC RDW Plt Count MPV Absolute Neuts (auto) Neutrophils % Lymphocytes % Monocytes % Eosinophils % Basophils % Nucleated RBC % Sodium Potassium Chloride Carbon Dioxide Anion Gap BUN Creatinine Est GFR (CKD-EPI)AfAm Est GFR (CKD-EPI)NonAf POC Glucometer 195 157 146 Random Glucose Calcium Total Bilirubin Direct Bilirubin AST ALT Alkaline Phosphatase Total Protein Albumin 04/24/19 04/24/19 04/24/19 08:18 08:18 12:04 WBC 9.9 RBC 3.54 L Hgb 10.1 L Hct 29.6 L MCV 83.5 MCH 28.5 MCHC 34.1 RDW 15.1 Plt Count 330 MPV 9.7 Absolute Neuts (auto) 7.9 Neutrophils % 80.3 Lymphocytes % 9.9 D Monocytes % 7.7 Eosinophils % 1.1 D Basophils % 1.0 Nucleated RBC % 0 Sodium 139 Potassium 3.6 Chloride 109 H Carbon Dioxide 20 L Anion Gap 10 BUN 18.0 Creatinine 1.5 H Est GFR (CKD-EPI)AfAm 57.82 Est GFR (CKD-EPI)NonAf 49.88 POC Glucometer 147 Random Glucose 148 H Calcium 7.8 L Total Bilirubin 0.7 Direct Bilirubin 0.3 H AST 103 H ALT 103 H Alkaline Phosphatase 206 H Total Protein 5.6 L Albumin 2.1 L Active Medications Generic Name Dose Route Start Last Admin Trade Name Freq PRN Reason Stop Dose Admin Aspirin 81 mg 04/18/19 10:00 04/24/19 10:48 Ecotrin - PO 81 mg DAILY [facility] Administration Heparin Sodium (Porcine) 5,000 unit 04/17/19 22:00 04/24/19 13:35 Heparin - SQ 5,000 unit TID [facility] Administration Sodium Chloride 1,000 mls @ 125 mls/hr 04/23/19 10:33 04/24/19 10:50 Normal Saline - IV 125 mls/hr ASDIR [facility] Administration Ampicillin Sodium/Sulbactam 100 mls @ 200 mls/hr 04/24/19 02:00 04/24/19 11: 10 Sodium 3 gm/ Sodium Chloride IVPB 200 mls/hr Q8H-IV [facility] Administration Doxycycline Hyclate 100 mg/ 100 mls @ 100 mls/hr 04/24/19 08:58 04/24/19 10: 48 Dextrose IVPB 100 mls/hr BID [facility] Administration Insulin Aspart 1 vial 04/17/19 22:00 04/24/19 12:05 Novolog Vial Sliding Scale - SQ Not Given ACHS [facility] Protocol Metoprolol Tartrate 100 mg 04/17/19 22:00 04/24/19 10:48 Lopressor - PO 100 mg BID [facility] Administration Prochlorperazine Edisylate 5 mg 04/22/19 16:40 04/24/19 12:12 Compazine Injection - IVPB 5 mg Q4H PRN Administration NAUSEA AND/OR VOMITING Tamsulosin HCl 0.4 mg 04/19/19 08:30 04/24/19 08:18 Flomax - PO 0.4 mg DAILY@0830 [facility] Administration ASSESSMENT/PLAN: Anabelle Cruz is a 58 year old male with a past medical history of HTN, DM, CAD (s/p CABG), and Nephrolithiasis presents with nausea, vomiting and fever and admitted for sepsis secondary to CAP. Sepsis secondary to CAP - blood and urine cx are negative - paracyte smear negative - CXR shows RLL PNA - c/ Unasyn (Day 4) - doxycycline 100mg bid - urine legionella/strep negative - compazine for nausea - continue to have fever - ID consulted, recs appreciated Hx CAD - continue home aspirin - hold Lipitor in setting of transaminitis HTN - continue Losartan 100 mg po qd and Metoprolol Tartrate 100 mg po BID DM - BGM - ISS Transaminitis - worsening - RUQ U/s noting mild fatty liver infiltration vs hepatocellular disease - continue to trend - may be in setting of statin, Unasyn, and sepsis FEN - no standing fluids, encourage PO intake - continue to monitor electrolytes and replete as necessary - Low sodium, diabetic diet DVT prophylaxis - Heparin 5000 units SQ tid Dispo - continue to monitor on Med-surg Visit type - Emergency Visit Emergency Visit: Yes ED Registration Date: 04/17/19 Care time: The patient presented to the Emergency Department on the above date and was hospitalized for further evaluation of their emergent condition. - New Patient This patient is new to me today: Yes Date on this admission: 04/24/19 - Critical Care Critical Care patient: No
--- NOTE | 2019-04-24 16:41 | PN ---
Progress Note, Physician - Current Medication List Current Medications: Active Medications Aspirin (Ecotrin -) 81 mg PO DAILY [facility] Last Admin: 04/24/19 10:48 Dose: 81 mg Heparin Sodium (Porcine) (Heparin -) 5,000 unit SQ TID [facility] Last Admin: 04/24/19 13:35 Dose: 5,000 unit Sodium Chloride (Normal Saline -) 1,000 mls @ 125 mls/hr IV ASDIR [facility] Last Admin: 04/24/19 10:50 Dose: 125 mls/hr Ampicillin Sodium/Sulbactam (Sodium 3 gm/ Sodium Chloride) 100 mls @ 200 mls/ hr IVPB Q8H-IV [facility] Last Admin: 04/24/19 11:10 Dose: 200 mls/hr Doxycycline Hyclate 100 mg/ (Dextrose) 100 mls @ 100 mls/hr IVPB BID [facility] Last Admin: 04/24/19 10:48 Dose: 100 mls/hr Insulin Aspart (Novolog Vial Sliding Scale -) 1 vial SQ ACHS [facility]; Protocol Last Admin: 04/24/19 12:05 Dose: Not Given Metoprolol Tartrate (Lopressor -) 100 mg PO BID [facility] Last Admin: 04/24/19 10:48 Dose: 100 mg Prochlorperazine Edisylate (Compazine Injection -) 5 mg IVPB Q4H PRN PRN Reason: NAUSEA AND/OR VOMITING Last Admin: 04/24/19 12:12 Dose: 5 mg Tamsulosin HCl (Flomax -) 0.4 mg PO DAILY@0830 [facility] Last Admin: 04/24/19 08:18 Dose: 0.4 mg - Objective Vital Signs: Vital Signs Temperature 99.5 F 04/24/19 14:00 Pulse Rate 77 04/24/19 14:00 Respiratory Rate 20 04/24/19 14:00 Blood Pressure 153/70 04/24/19 14:00 O2 Sat by Pulse Oximetry (%) 97 04/24/19 09:00 Labs: CBC, BMP 04/24/19 08:18 04/24/19 08:18 INR, PTT INR 1.29 (0.83-1.09) H 04/18/19 08:45
[2019-04-24] MEDS ORDERED: POTASSIUM CHLORIDE TABS 20 MEQ TABLET.ER (FP) PO ONE (18:52)
--- NOTE | 2019-04-24 18:56 | PN ---
Teaching Attending Note Name of Resident: Nicolas Marr ATTENDING PHYSICIAN STATEMENT I saw and evaluated the patient. I reviewed the resident's note and discussed the case with the resident. I agree with the resident's findings and plan as documented. SUBJECTIVE: seen earlier today around 11 am No fever or chills . no ALAS ,. cont to have nausea OBJECTIVE: NAD. Cv: RRR, no MRG Lungs: CTAB Ext: No edema ASSESSMENT AND PLAN: 58 y/o man with h/o CAD s/p CABG, DM, HTN , nephrolithiasis who presented with N /V and fever 1- Sepsis: due to right sided PNA. sepsis resolved. status improved - cont unasyn and doxy - follow blood cx ( NGTD) - cont IVF 2- Transaminitis:US reviewed. could be due to sepsis , statin, unasy on a back ground of fatty liver. . - hold statin 3- SUDHIR :cont IVF . cr improved .cont to hold losartan - renal cysts to be followed as out pt 4- H/o CAD /HTN: cont asa, statin, and metoprolol. 5- DM: cont SSI. DVT PX heparin sq
[2019-04-25] MEDS: DOXYCYCLINE INJECTION 100 MG in DEXTROSE 5%-WATER 100 ML IVPB SCH ×2 (00:36→10:22)
[2019-04-25] MEDS: AMPICILLIN NA/SULBACTAM NA 3 GM in SODIUM CHLORIDE 100 ML IVPB SCH ×2 (01:44→10:21)
[2019-04-25] MEDS: SODIUM CHLORIDE 1,000 ML IV SCH ×2 (04:15→10:24)
[2019-04-25] MEDS: INSULIN SLIDING SCALE (NOVOLOG) 1 VIAL SQ SCH ×4 (06:15→21:51)
--- NOTE | 2019-04-25 08:22 | PN ---
Teaching Attending Note Name of Resident: Nicolas Marr ATTENDING PHYSICIAN STATEMENT I saw and evaluated the patient. I reviewed the resident's note and discussed the case with the resident. I agree with the resident's findings and plan as documented. SUBJECTIVE: Patient is comfortable today with no acute distress. OBJECTIVE: Vital Signs Temperature 98.9 F 04/25/19 06:00 Pulse Rate 78 04/25/19 06:00 Respiratory Rate 20 04/25/19 06:00 Blood Pressure 130/62 04/25/19 06:00 O2 Sat by Pulse Oximetry (%) 97 04/24/19 21:00 GENERAL: The patient is awake, alert, and fully oriented, in no acute distress. HEAD: Normal with no signs of trauma. EYES: PERRL, extraocular movements intact, sclera anicteric, conjunctiva clear. ENT: Ears normal, oropharynx clear without exudates, moist mucous membranes. NECK: Trachea midline, full range of motion, supple. LUNGS:decreased BS BL, no wheezes, no crackles, no accessory muscle use. HEART: Regular rate and rhythm, S1, S2 without murmur, rub or gallop. ABDOMEN: Soft, NT,ND, normoactive bowel sounds, no guarding, no rebound, no hepatosplenomegaly, no masses. EXTREMITIES: 2+ pulses, warm, well-perfused, no edema. NEUROLOGICAL: Cranial nerves II through XII grossly intact. Normal speech, gait not observed. PSYCH: Normal mood, normal affect. SKIN: Warm, dry, normal turgor, no rashes or lesions noted CBCD WBC 9.9 K/mm3 (4.0-10.0) 04/24/19 08:18 RBC 3.54 M/mm3 (4.00-5.60) L 04/24/19 08:18 Hgb 10.1 GM/dL (11.7-16.9) L 04/24/19 08:18 Hct 29.6 % (35.4-49) L 04/24/19 08:18 MCV 83.5 fl (80-96) 04/24/19 08:18 MCHC 34.1 g/dl (32.0-35.9) 04/24/19 08:18 RDW 15.1 % (11.9-15.9) 04/24/19 08:18 Plt Count 330 K/MM3 (134-434) 04/24/19 08:18 MPV 9.7 fl (7.5-11.1) 04/24/19 08:18 CMP Sodium 134 mmol/L (136-145) L 04/23/19 09:30 Sodium 139 mmol/L (136-145) 04/24/19 08:18 Potassium 3.6 mmol/L (3.5-5.1) 04/23/19 09:30 Potassium 3.6 mmol/L (3.5-5.1) 04/24/19 08:18 Chloride 106 mmol/L (98-107) 04/23/19 09:30 Chloride 109 mmol/L (98-107) H 04/24/19 08:18 Carbon Dioxide 20 mmol/L (21-32) L 04/23/19 09:30 Carbon Dioxide 20 mmol/L (21-32) L 04/24/19 08:18 Anion Gap 9 MMOL/L (8-16) 04/23/19 09:30 Anion Gap 10 MMOL/L (8-16) 04/24/19 08:18 BUN 20.1 mg/dL (7-18) H 04/23/19 09:30 BUN 18.0 mg/dL (7-18) 04/24/19 08:18 Creatinine 1.7 mg/dL (0.55-1.3) H 04/23/19 09:30 Creatinine 1.5 mg/dL (0.55-1.3) H 04/24/19 08:18 Random Glucose 178 mg/dL (74-106) H 04/23/19 09:30 Random Glucose 148 mg/dL (74-106) H 04/24/19 08:18 Calcium 7.7 mg/dL (8.5-10.1) L 04/23/19 09:30 Calcium 7.8 mg/dL (8.5-10.1) L 04/24/19 08:18 Total Bilirubin 1.3 mg/dL (0.2-1) H 04/22/19 07:12 Total Bilirubin 0.7 mg/dL (0.2-1) 04/24/19 08:18 AST 82 U/L (15-37) H 04/22/19 07:12 AST 103 U/L (15-37) H 04/24/19 08:18 ALT 96 U/L (13-61) H 04/22/19 07:12 ALT 103 U/L (13-61) H 04/24/19 08:18 Alkaline Phosphatase 185 U/L (45-117) H 04/22/19 07:12 Alkaline Phosphatase 206 U/L (45-117) H 04/24/19 08:18 Total Protein 5.9 g/dl (6.4-8.2) L 04/22/19 07:12 Total Protein 5.6 g/dl (6.4-8.2) L 04/24/19 08:18 Albumin 2.5 g/dl (3.4-5.0) L 04/22/19 07:12 Albumin 2.1 g/dl (3.4-5.0) L 04/24/19 08:18 CARDIAC ENZYMES Troponin I < 0.02 ng/ml (0.00-0.05) 04/17/19 17:50 Current Medications Generic Name Dose Route Start Last Admin Trade Name Freq PRN Reason Stop Dose Admin Aspirin 81 mg 04/18/19 10:00 04/24/19 10:48 Ecotrin - PO 81 mg DAILY [facility] Administration Sodium Chloride 1,000 mls @ 125 mls/hr 04/23/19 10:33 04/25/19 04:15 Normal Saline - IV 125 mls/hr [facility] Administration Ampicillin Sodium/Sulbactam 100 mls @ 200 mls/hr 04/24/19 02:00 04/25/19 01: 44 Sodium 3 gm/ Sodium Chloride IVPB 200 mls/hr Q8H-IV [facility] Administration Doxycycline Hyclate 100 mg/ 100 mls @ 100 mls/hr 04/24/19 08:58 04/25/19 00: 36 Dextrose IVPB 100 mls/hr BID [facility] Administration Insulin Aspart 1 vial 04/17/19 22:00 04/25/19 06:15 Novolog Vial Sliding Scale - SQ Not Given ACHS [facility] Protocol Metoprolol Tartrate 100 mg 04/17/19 22:00 04/24/19 23:46 Lopressor - PO 100 mg BID [facility] Administration Prochlorperazine Edisylate 5 mg 04/22/19 16:40 04/24/19 23:47 Compazine Injection - IVPB 5 mg Q4H PRN Administration NAUSEA AND/OR VOMITING Tamsulosin HCl 0.4 mg 04/19/19 08:30 04/24/19 08:18 Flomax - PO 0.4 mg DAILY@0830 [facility] Administration Home Medications Medication Instructions Recorded metFORMIN HCL [Metformin HCl] 1,000 mg PO BID 05/28/15 Aspirin [ASA -] 81 mg PO DAILY #30 tab.chew 01/17/17 Atorvastatin Ca [Lipitor] 40 mg PO HS #30 tablet 01/17/17 Losartan Potassium [Cozaar -] 50 mg PO DAILY 09/21/17 Dulaglutide [Trulicity] 1.5 mg SQ WEEKLY 04/17/19 Metoprolol Tartrate [Lopressor] 100 mg PO BID 04/17/19 Oxybutynin Chloride 5 mg PO DAILY 04/17/19 Ranitidine HCl 300 mg PO HS 04/17/19 Tamsulosin HCl 0.4 mg PO DAILY 04/17/19 Microbiology 04/23/19 21:57 Urine For Antigen Detection Legionella Antigen - Final 04/23/19 21:57 Urine For Antigen Detection Streptococcus pneumoniae Antigen (M - Final 04/22/19 07:10 Blood - Peripheral Venous Blood Culture - Preliminary NO GROWTH OBTAINED AFTER 48 HOURS, INCUBATION TO CONTINUE FOR 3 DAYS. 04/22/19 07:10 Blood - Peripheral Venous Blood Culture - Preliminary NO GROWTH OBTAINED AFTER 48 HOURS, INCUBATION TO CONTINUE FOR 3 DAYS. 04/19/19 07:54 Blood - Peripheral Venous Blood Culture - Final NO GROWTH AFTER 5 DAYS INCUBATION 04/19/19 07:50 Blood - Peripheral Venous Blood Culture - Final NO GROWTH AFTER 5 DAYS INCUBATION 04/20/19 17:15 Blood - Peripheral Venous Blood Parasites Smear - Final 04/22/19 07:00 Urine - Urine Clean Catch Urine Culture - Final NO GROWTH OBTAINED 04/17/19 11:59 Blood - Peripheral Venous Blood Culture - Final NO GROWTH AFTER 5 DAYS INCUBATION 04/17/19 11:59 Blood - Peripheral Venous Blood Culture - Final NO GROWTH AFTER 5 DAYS INCUBATION 04/19/19 11:08 Urine - Urine Clean Catch Urine Culture - Final NO GROWTH OBTAINED 04/17/19 14:30 Urine - Urine Clean Catch Urine Culture - Final NO GROWTH OBTAINED CT abdomen and pelvis: 2 non obstructing stones in the right kidney with no stones in the ureter or bladder. there is no hypodense cyst suspected wit hounsfield density measuring up to 4.3 x 3.9 cm which should be correlated with US. moderate hepatomegaly up to 18.8 cm with normal volume, spleen 9.5cm Chest CT: acute infiltrate with consolidation noted in the anterior and posterior segments of the right upper lobe including the superior segment of the right lower lobe consistent with acute pneumonia. ASSESSMENT AND PLAN: Patient is a 58yom with Pmhx of CAD s/p CABG, DM, HTN , nephrolithiasis who presented with N/V and fever and was found to have acute pneumonia( Ct result as above). # s/p Sepsis: due to right sided PNA. improved, on unasyn and doxycycline continue , IVF # acute Transaminitis: trending up will get GI to see the patient and monitor LFts for am ; US reviewed (No gallstones, mild fatty liver vs hepatocellar dz ) could be due to sepsis . will dc Unasyn for now. continue to hold statins for now, IVF. discussed with the patient and the # Creatinine improved cont. to hold losartan. # Us of the kidney: 2cm right renal pole simple cysts, partially exophytic left renal upper pole cyst measuring 4x3.5 cm ; to be followed as out pt # H/o CAD /HTN: cont asa, statin, and metoprolol. # DM: cont SSI. DVT PX heparin sq
[2019-04-25] MEDS: TAMSULOSIN HCL 0.4 MG CAP PO SCH (09:28)
[2019-04-25] MEDS ORDERED: DEXTROSE 5%-WATER 100 ML IVPB ONE (09:57)
[2019-04-25] MEDS ORDERED: PT OWN MED DRAWER 7, Y5N ONE (09:57)
[2019-04-25] MEDS ORDERED: DOXYCYCLINE HYCLATE 100 MG VIAL ONE (09:57)
[2019-04-25] MEDS: PROCHLORPERAZINE INJECTION 10 MG/2 ML VIAL IVPB PRN (10:22)
[2019-04-25] MEDS: METOPROLOL TARTRATE 50 MG TABLET (FP) PO SCH ×2 (10:23→21:51)
[2019-04-25] MEDS: ASPIRIN COATED 81 MG TABLET.EC PO SCH (10:23)
[2019-04-25 10:42] LABS: BASO % 0.2 % (0-2.0); EOS % 1.7 % (0-4.5); HEMATOCRIT 30.5 % (35.4-49); HEMOGLOBIN 10.5 GM/dL (11.7-16.9); LYMPH % 10.4 % (8-40); MCH 28.8 pg (25.7-33.7); MCHC 34.5 g/dl (32.0-35.9); MEAN CELL VOLUME 83.4 fl (80-96); MEAN PLT VOLUME 9.4 fl (7.5-11.1); MONO % 7.5 % (3.8-10.2); NEUT % 80.2 % (42.8-82.8); PLATELET COUNT 351 K/MM3 (134-434); RBC 3.66 M/mm3 (4.00-5.60); RDW 15.4 % (11.9-15.9); WHITE BLOOD COUNT 8.8 K/mm3 (4.0-10.0)
[2019-04-25 11:07] LABS: ALBUMIN 2.1 g/dl (3.4-5.0); BILIRUBIN,TOTAL 0.8 mg/dL (0.2-1); BLOOD UREA NITROGEN 17.1 mg/dL (7-18); CALCIUM 8.4 mg/dL (8.5-10.1); CREATININE 1.2 mg/dL (0.55-1.3); MAGNESIUM 2.1 mg/dL (1.8-2.4); TOT PROT 5.8 g/dl (6.4-8.2)
--- NOTE | 2019-04-25 12:27 | PN ---
Progress Note, Physician - Current Medication List Current Medications: Active Medications Aspirin (Ecotrin -) 81 mg PO DAILY COUNT INCLUDES [facility] Last Admin: 04/25/19 10:23 Dose: 81 mg Sodium Chloride (Normal Saline -) 1,000 mls @ 125 mls/hr IV ASDIR COUNT INCLUDES THE [facility] Last Admin: 04/25/19 10:24 Dose: 125 mls/hr Insulin Aspart (Novolog Vial Sliding Scale -) 1 vial SQ ACHS COUNT INCLUDES THE [facility]; Protocol Last Admin: 04/25/19 11:57 Dose: 2 units Metoprolol Tartrate (Lopressor -) 100 mg PO BID COUNT INCLUDES [facility] Last Admin: 04/25/19 10:23 Dose: 100 mg Prochlorperazine Edisylate (Compazine Injection -) 5 mg IVPB Q4H PRN PRN Reason: NAUSEA AND/OR VOMITING Last Admin: 04/25/19 10:22 Dose: 5 mg Tamsulosin HCl (Flomax -) 0.4 mg PO DAILY@0830 COUNT INCLUDES [facility] Last Admin: 04/25/19 09:28 Dose: 0.4 mg - Objective Vital Signs: Vital Signs Temperature 97.6 F 04/25/19 09:32 Pulse Rate 84 04/25/19 09:32 Respiratory Rate 20 04/25/19 09:32 Blood Pressure 149/75 04/25/19 09:32 O2 Sat by Pulse Oximetry (%) 97 04/24/19 21:00 Labs: CBC, BMP 04/25/19 09:20 04/25/19 09:20 INR, PTT INR 1.29 (0.83-1.09) H 04/18/19 08:45
--- NOTE | 2019-04-25 13:21 | PN ---
Physical Exam: SUBJECTIVE: Patient seen and examined at the bedside. Patient notes that he continue to have a dry cough. States that he does not have much of an appetite. Denies fever, chills, cp, sob, abd pain, n/v/c/d, headaches, dizziness, lightheadedness. OBJECTIVE: Vital Signs Period Temp Pulse Resp BP Sys/Lara Pulse Ox Last 24 Hr 97.6 F-99.5 F 74-84 20-20 130-159/56-75 97 GENERAL: The patient is awake, alert, and fully oriented, in no acute distress. HEAD: Normal with no signs of trauma. ENT: Oropharynx clear without exudates, dry mucous membranes. NECK: Trachea midline, full range of motion, supple. LUNGS: Breath sounds decreased on the RLL with mild crackles. Clear on the left. HEART: Regular rate and rhythm, S1, S2 without murmur, rub. ABDOMEN: Soft, nontender, nondistended, normoactive bowel sounds, no guarding, no rebound, no masses. EXTREMITIES: 2+ pulses, warm, well-perfused, no edema. NEUROLOGICAL: Cranial nerves II through XII grossly intact. 5/5 muscle strength bilaterally, upper and lower extremities. PSYCH: Normal mood, normal affect. SKIN: Warm, dry, normal turgor, no rashes or lesions noted. Laboratory Results - last 24 hr 04/24/19 04/24/19 04/25/19 17:19 23:40 05:47 WBC RBC Hgb Hct MCV MCH MCHC RDW Plt Count MPV Absolute Neuts (auto) Neutrophils % Lymphocytes % Monocytes % Eosinophils % Basophils % Nucleated RBC % Sodium Potassium Chloride Carbon Dioxide Anion Gap BUN Creatinine Est GFR (CKD-EPI)AfAm Est GFR (CKD-EPI)NonAf POC Glucometer 138 163 138 Random Glucose Calcium Magnesium Total Bilirubin AST ALT Alkaline Phosphatase Total Protein Albumin 04/25/19 04/25/19 04/25/19 09:20 09:20 11:55 WBC 8.8 RBC 3.66 L Hgb 10.5 L Hct 30.5 L MCV 83.4 MCH 28.8 MCHC 34.5 RDW 15.4 Plt Count 351 MPV 9.4 Absolute Neuts (auto) 7.1 Neutrophils % 80.2 Lymphocytes % 10.4 Monocytes % 7.5 Eosinophils % 1.7 Basophils % 0.2 Nucleated RBC % 0 Sodium 139 Potassium 4.0 Chloride 108 H Carbon Dioxide 21 Anion Gap 10 BUN 17.1 Creatinine 1.2 Est GFR (CKD-EPI)AfAm 75.72 Est GFR (CKD-EPI)NonAf 65.33 POC Glucometer 209 Random Glucose 192 H Calcium 8.4 L Magnesium 2.1 Total Bilirubin 0.8 AST 236 H ALT 208 H Alkaline Phosphatase 382 H Total Protein 5.8 L Albumin 2.1 L Active Medications Generic Name Dose Route Start Last Admin Trade Name Freq PRN Reason Stop Dose Admin Aspirin 81 mg 04/18/19 10:00 04/25/19 10:23 Ecotrin - PO 81 mg DAILY ROSELINE Administration Sodium Chloride 1,000 mls @ 125 mls/hr 04/23/19 10:33 04/25/19 10:24 Normal Saline - IV 125 mls/hr ASDIR ROSELINE Administration Insulin Aspart 1 vial 04/17/19 22:00 04/25/19 11:57 Novolog Vial Sliding Scale - SQ 2 units ACHS ROSELINE Administration Protocol Metoprolol Tartrate 100 mg 04/17/19 22:00 04/25/19 10:23 Lopressor - PO 100 mg BID ROSELINE Administration Prochlorperazine Edisylate 5 mg 04/22/19 16:40 04/25/19 10:22 Compazine Injection - IVPB 5 mg Q4H PRN Administration NAUSEA AND/OR VOMITING Tamsulosin HCl 0.4 mg 04/19/19 08:30 04/25/19 09:28 Flomax - PO 0.4 mg DAILY@0830 ROSE[facility] Administration ASSESSMENT/PLAN: Anabelle Cruz is a 58 year old male with a past medical history of HTN, DM, CAD (s/p CABG), and Nephrolithiasis presents with nausea, vomiting and fever and admitted for sepsis secondary to CAP. Sepsis secondary to CAP - blood and urine cx are negative - paracyte smear negative - CXR shows RLL PNA - monitor off antibiotics for 24 hours as per ID - urine legionella/strep negative - compazine for nausea - has been afebrile for 24 hours - ID consulted, recs appreciated - incentive spirometer Hx CAD - continue home aspirin - hold Lipitor in setting of transaminitis HTN - continue Losartan 100 mg po qd and Metoprolol Tartrate 100 mg po BID DM - BGM - ISS Transaminitis - worsening - RUQ U/s noting mild fatty liver infiltration vs hepatocellular disease - continue to trend - Unasyn stopped, not currently on Lipitor, sepsis resolved - if continues to worsen may need further investigation - continue fluids FEN - NS at 125cc/hr encourage PO intake - continue to monitor electrolytes and replete as necessary - Low sodium, diabetic diet DVT prophylaxis - Heparin 5000 units SQ tid Dispo - continue to monitor on Med-surg Visit type - Emergency Visit Emergency Visit: Yes ED Registration Date: 04/17/19 Care time: The patient presented to the Emergency Department on the above date and was hospitalized for further evaluation of their emergent condition. - New Patient This patient is new to me today: No - Critical Care Critical Care patient: No
[2019-04-25 14:54] VITALS: BMI 29.9
[2019-04-26] MEDS: SODIUM CHLORIDE 1,000 ML IV SCH (01:37)
[2019-04-26] MEDS: INSULIN SLIDING SCALE (NOVOLOG) 1 VIAL SQ SCH ×2 (06:52→12:38)
--- NOTE | 2019-04-26 08:02 | PN ---
Teaching Attending Note Name of Resident: Nicolas Marr ATTENDING PHYSICIAN STATEMENT I saw and evaluated the patient. I reviewed the resident's note and discussed the case with the resident. I agree with the resident's findings and plan as documented. SUBJECTIVE: Patient has no new complains, will continue to monitor, patient agreed to see the GI before going home. Vital Signs Temperature 99.8 F H 04/26/19 06:00 Pulse Rate 81 04/26/19 06:00 Respiratory Rate 20 04/26/19 06:00 Blood Pressure 153/72 04/26/19 06:00 O2 Sat by Pulse Oximetry (%) 97 04/25/19 21:00 GENERAL: The patient is awake, alert, and fully oriented, in no acute distress. HEAD: Normal with no signs of trauma. EYES: PERRL, extraocular movements intact, sclera anicteric, conjunctiva clear. ENT: Ears normal, oropharynx clear without exudates, moist mucous membranes. NECK: Trachea midline, full range of motion, supple. LUNGS: Breath sounds equal, clear to auscultation bilaterally, no wheezes, no crackles, no accessory muscle use. HEART: Regular rate and rhythm, S1, S2 without murmur, rub or gallop. ABDOMEN: Soft, nontender, nondistended, normoactive bowel sounds, no guarding, no rebound, no hepatosplenomegaly, no masses. EXTREMITIES: 2+ pulses, warm, well-perfused, no edema. NEUROLOGICAL: Cranial nerves II through XII grossly intact. Normal speech, gait not observed. PSYCH: Normal mood, normal affect. SKIN: Warm, dry, normal turgor, no rashes or lesions noted CBCD WBC 8.8 K/mm3 (4.0-10.0) 04/25/19 09:20 RBC 3.66 M/mm3 (4.00-5.60) L 04/25/19 09:20 Hgb 10.5 GM/dL (11.7-16.9) L 04/25/19:20 Hct 30.5 % (35.4-49) L 04/25/19:20 MCV 83.4 fl (80-96) 04/25/19:20 MCHC 34.5 g/dl (32.0-35.9) 04/25/19:20 RDW 15.4 % (11.9-15.9) 04/25/19 09:20 Plt Count 351 K/MM3 (134-434) 04/25/19 09:20 MPV 9.4 fl (7.5-11.1) 04/25/19 09:20 CMP Sodium 139 mmol/L (136-145) 04/24/19 08:18 Sodium 139 mmol/L (136-145) 04/25/19 09:20 Potassium 3.6 mmol/L (3.5-5.1) 04/24/19 08:18 Potassium 4.0 mmol/L (3.5-5.1) 04/25/19 09:20 Chloride 109 mmol/L (98-107) H 04/24/19 08:18 Chloride 108 mmol/L (98-107) H 04/25/19 09:20 Carbon Dioxide 20 mmol/L (21-32) L 04/24/19 08:18 Carbon Dioxide 21 mmol/L (21-32) 04/25/19 09:20 Anion Gap 10 MMOL/L (8-16) 04/24/19 08:18 Anion Gap 10 MMOL/L (8-16) 04/25/19 09:20 BUN 18.0 mg/dL (7-18) 04/24/19 08:18 BUN 17.1 mg/dL (7-18) 04/25/19 09:20 Creatinine 1.5 mg/dL (0.55-1.3) H 04/24/19 08:18 Creatinine 1.2 mg/dL (0.55-1.3) 04/25/19 09:20 Random Glucose 148 mg/dL (74-106) H 04/24/19 08:18 Random Glucose 192 mg/dL (74-106) H 04/25/19 09:20 Calcium 7.8 mg/dL (8.5-10.1) L 04/24/19 08:18 Calcium 8.4 mg/dL (8.5-10.1) L 04/25/19 09:20 Total Bilirubin 0.7 mg/dL (0.2-1) 04/24/19 08:18 Total Bilirubin 0.8 mg/dL (0.2-1) 04/25/19 09:20 AST 103 U/L (15-37) H 04/24/19 08:18 AST 236 U/L (15-37) H 04/25/19 09:20 ALT 103 U/L (13-61) H 04/24/19 08:18 ALT 208 U/L (13-61) H 04/25/19 09:20 Alkaline Phosphatase 206 U/L (45-117) H 04/24/19 08:18 Alkaline Phosphatase 382 U/L (45-117) H 04/25/19 09:20 Total Protein 5.6 g/dl (6.4-8.2) L 04/24/19 08:18 Total Protein 5.8 g/dl (6.4-8.2) L 04/25/19 09:20 Albumin 2.1 g/dl (3.4-5.0) L 04/24/19 08:18 Albumin 2.1 g/dl (3.4-5.0) L 04/25/19 09:20 CARDIAC ENZYMES Troponin I < 0.02 ng/ml (0.00-0.05) 04/17/19 17:50 Current Medications Generic Name Dose Route Start Last Admin Trade Name Freq PRN Reason Stop Dose Admin Aspirin 81 mg 04/18/19 10:00 04/25/19 10:23 Ecotrin - PO 81 mg DAILY ROSELINE Administration Sodium Chloride 1,000 mls @ 125 mls/hr 04/23/19 10:33 04/26/19 01:37 Normal Saline - IV 125 mls/hr ASDIR ROSELINE Administration Insulin Aspart 1 vial 04/17/19 22:00 04/26/19 06:52 Novolog Vial Sliding Scale - SQ Not Given ACHS [facility] Protocol Metoprolol Tartrate 100 mg 04/17/19 22:00 04/25/19 21:51 Lopressor - PO 100 mg BID ROSELINE Administration Prochlorperazine Edisylate 5 mg 04/22/19 16:40 04/25/19 10:22 Compazine Injection - IVPB 5 mg Q4H PRN Administration NAUSEA AND/OR VOMITING Tamsulosin HCl 0.4 mg 04/19/19 08:30 04/25/19 09:28 Flomax - PO 0.4 mg DAILY@0830 ROSELINE Administration Home Medications Medication Instructions Recorded metFORMIN HCL [Metformin HCl] 1,000 mg PO BID 05/28/15 Aspirin [ASA -] 81 mg PO DAILY #30 tab.chew 01/17/17 Atorvastatin Ca [Lipitor] 40 mg PO HS #30 tablet 01/17/17 Losartan Potassium [Cozaar -] 50 mg PO DAILY 09/21/17 Dulaglutide [Trulicity] 1.5 mg SQ WEEKLY 04/17/19 Metoprolol Tartrate [Lopressor] 100 mg PO BID 04/17/19 Oxybutynin Chloride 5 mg PO DAILY 04/17/19 Ranitidine HCl 300 mg PO HS 04/17/19 Tamsulosin HCl 0.4 mg PO DAILY 04/17/19 Microbiology 04/23/19 21:57 Urine For Antigen Detection Legionella Antigen - Final 04/23/19 21:57 Urine For Antigen Detection Streptococcus pneumoniae Antigen (M - Final 04/22/19 07:10 Blood - Peripheral Venous Blood Culture - Preliminary NO GROWTH OBTAINED AFTER 48 HOURS, INCUBATION TO CONTINUE FOR 3 DAYS. 04/22/19 07:10 Blood - Peripheral Venous Blood Culture - Preliminary NO GROWTH OBTAINED AFTER 48 HOURS, INCUBATION TO CONTINUE FOR 3 DAYS. 04/19/19 07:54 Blood - Peripheral Venous Blood Culture - Final NO GROWTH AFTER 5 DAYS INCUBATION 04/19/19 07:50 Blood - Peripheral Venous Blood Culture - Final NO GROWTH AFTER 5 DAYS INCUBATION 04/20/19 17:15 Blood - Peripheral Venous Blood Parasites Smear - Final 04/22/19 07:00 Urine - Urine Clean Catch Urine Culture - Final NO GROWTH OBTAINED 04/17/19 11:59 Blood - Peripheral Venous Blood Culture - Final NO GROWTH AFTER 5 DAYS INCUBATION 04/17/19 11:59 Blood - Peripheral Venous Blood Culture - Final NO GROWTH AFTER 5 DAYS INCUBATION 04/19/19 11:08 Urine - Urine Clean Catch Urine Culture - Final NO GROWTH OBTAINED 04/17/19 14:30 Urine - Urine Clean Catch Urine Culture - Final NO GROWTH OBTAINED CT abdomen and pelvis: 2 non obstructing stones in the right kidney with no stones in the ureter or bladder. there is no hypodense cyst suspected wit hounsfield density measuring up to 4.3 x 3.9 cm which should be correlated with US. moderate hepatomegaly up to 18.8 cm with normal volume, spleen 9.5cm Chest CT: acute infiltrate with consolidation noted in the anterior and posterior segments of the right upper lobe including the superior segment of the right lower lobe consistent with acute pneumonia. ASSESSMENT AND PLAN: Patient is a 58yom with Pmhx of CAD s/p CABG, DM, HTN , nephrolithiasis who presented with N/V and fever and was found to have acute pneumonia( Ct result as above). # s/p Sepsis: due to right sided PNA. improved, off IV antibiotics. continue IVF s/p Unayn and doxy # acute Transaminitis: trending up will wait for GI recommendations. discussed with the patient , agreed to see the GI and further plan as per GI. US reviewed (No gallstones, mild fatty liver vs hepatocellar dz ) could be due to sepsis . continue to hold statins. # Creatinine improved cont. to hold losartan. # Us of the kidney: 2cm right renal pole simple cysts, partially exophytic left renal upper pole cyst measuring 4x3.5 cm ; to be followed as out pt # H/o CAD /HTN: cont asa, statin, and metoprolol. # DM: cont SSI. DVT PX heparin sq
[2019-04-26 08:53] LABS: BASO % 0.8 % (0-2.0); HEMATOCRIT 30.2 % (35.4-49); HEMOGLOBIN 10.2 GM/dL (11.7-16.9); LYMPH % 12.2 % (8-40); MCH 28.7 pg (25.7-33.7); MCHC 33.8 g/dl (32.0-35.9); MEAN CELL VOLUME 84.7 fl (80-96); MEAN PLT VOLUME 9.5 fl (7.5-11.1); MONO % 7.4 % (3.8-10.2); NEUT % 77.6 % (42.8-82.8); PLATELET COUNT 389 K/MM3 (134-434); RBC 3.56 M/mm3 (4.00-5.60); RDW 15.5 % (11.9-15.9); WHITE BLOOD COUNT 9.4 K/mm3 (4.0-10.0)
[2019-04-26 09:13] LABS: BILIRUBIN,TOTAL 0.8 mg/dL (0.2-1); BLOOD UREA NITROGEN 16.1 mg/dL (7-18); CALCIUM 8.1 mg/dL (8.5-10.1); CREATININE 1.2 mg/dL (0.55-1.3); MAGNESIUM 1.9 mg/dL (1.8-2.4); TOT PROT 5.7 g/dl (6.4-8.2)
--- NOTE | 2019-04-26 09:26 | PN ---
Physical Exam: SUBJECTIVE: Patient seen and examined at the bedside. States that he wants to go home. Continues to endorse a dry cough and states that he does not have a great appetite. Denies cp, sob, abd pain, n/v/c/d, fever, chills, headaches, dizziness, lightheadness, focal weakness, numbness, tingling. OBJECTIVE: Vital Signs Period Temp Pulse Resp BP Sys/Lara Pulse Ox Last 24 Hr 97.6 F-99.8 F 74-84 20-20 129-153/58-75 97 GENERAL: The patient is awake, alert, and fully oriented, in no acute distress. HEAD: Normal with no signs of trauma. ENT: Oropharynx clear without exudates, dry mucous membranes. NECK: Trachea midline, full range of motion, supple. LUNGS: Breath sounds decreased on the RLL with mild crackles. Clear on the left. HEART: Regular rate and rhythm, S1, S2 without murmur, rub. ABDOMEN: Soft, nontender, nondistended, normoactive bowel sounds, no guarding, no rebound, no masses. EXTREMITIES: 2+ pulses, warm, well-perfused, no edema. NEUROLOGICAL: Cranial nerves II through XII grossly intact. 5/5 muscle strength bilaterally, upper and lower extremities. PSYCH: Normal mood, normal affect. SKIN: Warm, dry, normal turgor, no rashes or lesions noted. Laboratory Results - last 24 hr 04/25/19 04/25/19 04/25/19 09:20 09:20 11:55 WBC 8.8 RBC 3.66 L Hgb 10.5 L Hct 30.5 L MCV 83.4 MCH 28.8 MCHC 34.5 RDW 15.4 Plt Count 351 MPV 9.4 Absolute Neuts (auto) 7.1 Neutrophils % 80.2 Lymphocytes % 10.4 Monocytes % 7.5 Eosinophils % 1.7 Basophils % 0.2 Nucleated RBC % 0 Sodium 139 Potassium 4.0 Chloride 108 H Carbon Dioxide 21 Anion Gap 10 BUN 17.1 Creatinine 1.2 Est GFR (CKD-EPI)AfAm 75.72 Est GFR (CKD-EPI)NonAf 65.33 POC Glucometer 209 Random Glucose 192 H Calcium 8.4 L Magnesium 2.1 Total Bilirubin 0.8 AST 236 H ALT 208 H Alkaline Phosphatase 382 H Total Protein 5.8 L Albumin 2.1 L 04/25/19 04/25/19 04/26/19 17:14 21:49 06:00 WBC RBC Hgb Hct MCV MCH MCHC RDW Plt Count MPV Absolute Neuts (auto) Neutrophils % Lymphocytes % Monocytes % Eosinophils % Basophils % Nucleated RBC % Sodium 141 Potassium 4.0 Chloride 112 H Carbon Dioxide 19 L Anion Gap 9 BUN 16.1 Creatinine 1.2 Est GFR (CKD-EPI)AfAm 75.72 Est GFR (CKD-EPI)NonAf 65.33 POC Glucometer 141 142 Random Glucose 160 H Calcium 8.1 L Magnesium 1.9 Total Bilirubin 0.8 AST 233 H ALT 250 H Alkaline Phosphatase 468 H Total Protein 5.7 L Albumin 2.0 L 04/26/19 04/26/19 06:37 08:05 WBC 9.4 RBC 3.56 L Hgb 10.2 L Hct 30.2 L MCV 84.7 MCH 28.7 MCHC 33.8 RDW 15.5 Plt Count 389 MPV 9.5 Absolute Neuts (auto) 7.3 Neutrophils % 77.6 Lymphocytes % 12.2 Monocytes % 7.4 Eosinophils % 2.0 Basophils % 0.8 D Nucleated RBC % 0 Sodium Potassium Chloride Carbon Dioxide Anion Gap BUN Creatinine Est GFR (CKD-EPI)AfAm Est GFR (CKD-EPI)NonAf POC Glucometer 140 Random Glucose Calcium Magnesium Total Bilirubin AST ALT Alkaline Phosphatase Total Protein Albumin Active Medications Generic Name Dose Route Start Last Admin Trade Name Freq PRN Reason Stop Dose Admin Aspirin 81 mg 04/18/19 10:00 04/25/19 10:23 Ecotrin - PO 81 mg DAILY ROSELINE Administration Sodium Chloride 1,000 mls @ 125 mls/hr 04/23/19 10:33 04/26/19 01:37 Normal Saline - IV 125 mls/hr ASDIR ROSELINE Administration Insulin Aspart 1 vial 04/17/19 22:00 04/26/19 06:52 Novolog Vial Sliding Scale - SQ Not Given ACHS [facility] Protocol Metoprolol Tartrate 100 mg 04/17/19 22:00 04/25/19 21:51 Lopressor - PO 100 mg BID ROSELINE Administration Prochlorperazine Edisylate 5 mg 04/22/19 16:40 04/25/19 10:22 Compazine Injection - IVPB 5 mg Q4H PRN Administration NAUSEA AND/OR VOMITING Tamsulosin HCl 0.4 mg 04/19/19 08:30 04/25/19 09:28 Flomax - PO 0.4 mg DAILY@0830 [facility] Administration ASSESSMENT/PLAN: Anabelle Cruz is a 58 year old male with a past medical history of HTN, DM, CAD (s/p CABG), and Nephrolithiasis presents with nausea, vomiting and fever and admitted for sepsis secondary to CAP. Sepsis secondary to CAP - blood and urine cx are negative - paracyte smear negative - CXR shows RLL PNA - monitor off antibiotics for 24 hours as per ID - urine legionella/strep negative - compazine for nausea - has been afebrile for 48 hours - ID consulted, recs appreciated - incentive spirometer Hx CAD - continue home aspirin - hold Lipitor in setting of transaminitis HTN - continue Losartan 100 mg po qd and Metoprolol Tartrate 100 mg po BID DM - BGM - ISS Transaminitis - worsening - RUQ U/s noting mild fatty liver infiltration vs hepatocellular disease - continue to trend - Unasyn stopped, not currently on Lipitor, sepsis resolved - if continues to worsen may need further investigation - continue fluids FEN - NS at 125cc/hr encourage PO intake - continue to monitor electrolytes and replete as necessary - Low sodium, diabetic diet DVT prophylaxis - Heparin 5000 units SQ tid Dispo - continue to monitor on Med-surg Visit type - Emergency Visit Emergency Visit: Yes ED Registration Date: 04/17/19 Care time: The patient presented to the Emergency Department on the above date and was hospitalized for further evaluation of their emergent condition. - New Patient This patient is new to me today: No - Critical Care Critical Care patient: No
[2019-04-26] MEDS: TAMSULOSIN HCL 0.4 MG CAP PO SCH (10:18)
[2019-04-26] MEDS: ASPIRIN COATED 81 MG TABLET.EC PO SCH (10:18)
[2019-04-26] MEDS: METOPROLOL TARTRATE 50 MG TABLET (FP) PO SCH (10:19)
[2019-04-26 10:21] VITALS: BP 141/68; PULSE 75; TEMP 98.1
--- NOTE | 2019-04-26 12:13 | PN ---
Progress Note, Physician History of Present Illness: clinically patient stable wants to go home liver enzymes have increased - Current Medication List Current Medications: Active Medications Aspirin (Ecotrin -) 81 mg PO DAILY [facility] Last Admin: 04/26/19 10:18 Dose: 81 mg Sodium Chloride (Normal Saline -) 1,000 mls @ 125 mls/hr IV ASDIR [facility] Last Admin: 04/26/19 01:37 Dose: 125 mls/hr Insulin Aspart (Novolog Vial Sliding Scale -) 1 vial SQ ACHS [facility]; Protocol Last Admin: 04/26/19 06:52 Dose: Not Given Metoprolol Tartrate (Lopressor -) 100 mg PO BID [facility] Last Admin: 04/26/19 10:19 Dose: 100 mg Prochlorperazine Edisylate (Compazine Injection -) 5 mg IVPB Q4H PRN PRN Reason: NAUSEA AND/OR VOMITING Last Admin: 04/25/19 10:22 Dose: 5 mg Tamsulosin HCl (Flomax -) 0.4 mg PO DAILY@0830 [facility] Last Admin: 04/26/19 10:18 Dose: 0.4 mg - Objective Vital Signs: Vital Signs Temperature 98.1 F 04/26/19 10:20 Pulse Rate 75 04/26/19 10:20 Respiratory Rate 18 04/26/19 10:20 Blood Pressure 141/68 04/26/19 10:20 O2 Sat by Pulse Oximetry (%) 97 04/25/19 21:00 Constitutional: Yes: No Distress, Calm Cardiovascular: Yes: Regular Rate and Rhythm Respiratory: Yes: Regular, CTA Bilaterally Gastrointestinal: Yes: Normal Bowel Sounds, Soft Musculoskeletal: Yes: WNL Extremities: Yes: WNL Neurological: Yes: Alert, Oriented Psychiatric: Yes: Alert, Oriented Labs: CBC, BMP 04/26/19 08:05 04/26/19 06:00 INR, PTT INR 1.29 (0.83-1.09) H 04/18/19 08:45 Assessment/Plan 58 y/o man with h/o CAD s/p CABG, DM, HTN , nephrolithiasis who presented with N/V and fever 1- Fever: unknown source. 2- CAD /HTN 3- DM 4- SUDHIR resolved infiltrate in the lungs plan hydration off of abx remained afebrile lfts are high going for ultrasound of liver
--- NOTE | 2019-04-26 17:03 | DS ---
Physical Exam: SUBJECTIVE: Patient seen and examined at the bedside. States that he wants to go home. Continues to endorse a dry cough and states that he does not have a great appetite. Denies cp, sob, abd pain, n/v/c/d, fever, chills, headaches, dizziness, lightheadness, focal weakness, numbness, tingling. Stated that he wants to go home and does not want any more workup and will leave the hospital. OBJECTIVE: Vital Signs Period Temp Pulse Resp BP Sys/Lara Pulse Ox Last 24 Hr 98.1 F-99.8 F 75-81 18-20 129-153/58-72 97-99 PHYSICAL EXAM GENERAL: The patient is awake, alert, and fully oriented, in mild acute distress over being in the hospital. HEAD: Normal with no signs of trauma. ENT: Oropharynx clear without exudates, dry mucous membranes. NECK: Trachea midline, full range of motion, supple. LUNGS: Breath sounds decreased on the RLL. Clear on the left. HEART: Regular rate and rhythm, S1, S2 without murmur, rub. ABDOMEN: Soft, nontender, nondistended, normoactive bowel sounds, no guarding, no rebound, no masses. EXTREMITIES: 2+ pulses, warm, well-perfused, no edema. NEUROLOGICAL: Cranial nerves II through XII grossly intact. 5/5 muscle strength bilaterally, upper and lower extremities. PSYCH: Agitated mood. LABS Laboratory Results - last 24 hr 04/25/19 04/25/19 04/26/19 17:14 21:49 06:00 WBC RBC Hgb Hct MCV MCH MCHC RDW Plt Count MPV Absolute Neuts (auto) Neutrophils % Lymphocytes % Monocytes % Eosinophils % Basophils % Nucleated RBC % Sodium 141 Potassium 4.0 Chloride 112 H Carbon Dioxide 19 L Anion Gap 9 BUN 16.1 Creatinine 1.2 Est GFR (CKD-EPI)AfAm 75.72 Est GFR (CKD-EPI)NonAf 65.33 POC Glucometer 141 142 Random Glucose 160 H Calcium 8.1 L Magnesium 1.9 Total Bilirubin 0.8 AST 233 H ALT 250 H Alkaline Phosphatase 468 H Total Protein 5.7 L Albumin 2.0 L 04/26/19 04/26/19 04/26/19 06:37 08:05 12:36 WBC 9.4 RBC 3.56 L Hgb 10.2 L Hct 30.2 L MCV 84.7 MCH 28.7 MCHC 33.8 RDW 15.5 Plt Count 389 MPV 9.5 Absolute Neuts (auto) 7.3 Neutrophils % 77.6 Lymphocytes % 12.2 Monocytes % 7.4 Eosinophils % 2.0 Basophils % 0.8 D Nucleated RBC % 0 Sodium Potassium Chloride Carbon Dioxide Anion Gap BUN Creatinine Est GFR (CKD-EPI)AfAm Est GFR (CKD-EPI)NonAf POC Glucometer 140 147 Random Glucose Calcium Magnesium Total Bilirubin AST ALT Alkaline Phosphatase Total Protein Albumin HOSPITAL COURSE: Anabelle Cruz is a 58 year old male with a past medical history of HTN, DM, CAD (s/p CABG), and Nephrolithiasis presents with nausea, vomiting and fever and admitted for sepsis secondary to CAP. Sepsis resolved and patient was treated with Unasyn as per ID. Cultures were negative and patient was off antibiotics and had been afebrile for 48 hours. While in the hospital, the patient had developed transaminitis without an obvious source likely in the setting of sepsis/Lipitor/Unasyn. RUQ U/S noted mild fatty liver infiltration vs hepatocellular disease. GI was requested to see the patient while he was in the hospital. Was recommended not to continue his home Lipitor while he had transaminitis. Patient refused to see the radio interference trouble shooter and left the hospital without signing AMA paperwork or further counseling as to his transaminitis. Was checked to make sure he did not have any IV lines. Patient eloped from the hospital. Date of Admission:04/17/19 Date of Discharge: 04/26/19 Minutes to complete discharge: 35 Discharge Summary Problems reviewed: Yes Reason For Visit: ACUTE KIDNEY INJURY, LATEMT AUTOIMMUNE DIABETES Condition: Stable - Instructions Diet, Activity, Other Instructions: You were admitted for pneumonia and were treated with antibiotics which you had completed. You were seen by the infectious disease specialist who recommended antibiotics for you while you were in the hospital. While you were in the hospital your liver enzymes were increased which was likely in the setting of your infection and the antibiotics. You should have bloodwork performed at your primary care office within a week to make sure that your levels are trending downwards. MEDICATIONS DO NOT take Lipitor until your primary care doctor states that you can restart the medications. Please continue to take all of your home medications as prescribed. REFERRALS Please follow up with your primary care doctor, Dr. Gomez, within 1 week. Love follow up with the radio interference trouble shooter, Dr. Landry, within 1 week. SPECIAL INSTRUCTIONS Please have laboratory work for liver enzyme testing within 1 week. If you have any symptoms of chest pain, shortness of breath, fevers, increased cough with production of sputum, or any other general feelings of unwellness, call 911 or go your nearest emergency room. Referrals: Kasi Landry DO [Staff Physician] - 1 Week Mahsa Gomez MD [Primary Care Provider] - 1 Week Disposition: ELOPED - Home Medications Comprehensive Discharge Medication List: Ambulatory Orders metFORMIN HCL [Metformin HCl] 1,000 mg PO BID 05/28/15 Aspirin [ASA -] 81 mg PO DAILY #30 tab.chew 01/17/17 Losartan Potassium [Cozaar -] 50 mg PO DAILY 09/21/17 Dulaglutide [Trulicity] 1.5 mg SQ WEEKLY 04/17/19 Metoprolol Tartrate [Lopressor] 100 mg PO BID 04/17/19 Oxybutynin Chloride 5 mg PO DAILY 04/17/19 Ranitidine HCl 300 mg PO HS 04/17/19 Tamsulosin HCl 0.4 mg PO DAILY 04/17/19 This patient is new to me today: No Emergency Visit: Yes ED Registration Date: 04/17/19 Care time: The patient presented to the Emergency Department on the above date and was hospitalized for further evaluation of their emergent condition. Critical Care patient: No - Discharge Referral Referred to [facility] No
== END 2019-04-26 13:45 | disposition left against medical advice (07) | DRG 720 ==
LOC: JER 10:30 → JERBED 14:57 → J5S 20:43
PROVIDERS: ADMIT Internal Medicine; ATTEND Internal Medicine
DX: A41.9 Sepsis, unspecified organism (principal); I10 Essential (primary) hypertension; E11.9 Type 2 diabetes mellitus without complications; E78.5 Hyperlipidemia, unspecified; I25.10 Atherosclerotic heart disease of native coronary artery without angina pectoris; R50.9 Fever, unspecified; A08.4 Viral intestinal infection, unspecified; K76.0 Fatty (change of) liver, not elsewhere classified; R74.0 Nonspecific elevation of levels of transaminase and lactic acid dehydrogenase [LDH]; J18.9 Pneumonia, unspecified organism; N17.9 Acute kidney failure, unspecified; Z95.1 Presence of aortocoronary bypass graft; N40.0 Benign prostatic hyperplasia without lower urinary tract symptoms; K21.9 Gastro-esophageal reflux disease without esophagitis; E86.0 Dehydration
CPT/HCPCS: 36415; 71045-TC-FY; 71046-TC-FY; 71250-TC; 74176-TC; 76705-TC; 76775-TC; 80048; 80053; 80076; 81003; 82803; 82962; 83605; 83690; 83735; 84100; 84484; 85025; 85027; 85610; 85730; 87040; 87086; 87207; 87804; 87899; 93005; 93010; 93306-TC; 97116-GP; 97161-GP; 99284-25; J0131; J1644; J7030